=== PATIENT | female | born 1945 | race Caucasian/White ===

== ENCOUNTER 2019-07-13 09:03 | Inpatient (IN) | payer MEDICARE, OTHER ==
[2019-07-13] VITALS (12 sets, daily range): BP systolic 93–114; BP diastolic 33–76
[~2019-07-13] VITALS: Ht 152.4 cm; Wt 72.3 kg
[~2019-07-13 09:03] MED LIST: ALEN70TA3 PO; ASCO100T4 PO; CARV6.2511 PO; CHOL10002 PO; DIGO250T3 PO; DULO30CA2 PO; ESCITALOPRAM OX10 MG PO; FERR500P8 MC; GABA300C18 PO; GLIM2TAB7 PO; INSU100V31 SQ; INSU100V8 SQ; LEVO125T5 PO; LEVO500T59 PO; LISI-338 PO; QUET100T4 PO; SIMV20TA18 PO; TAPE75TA3 PO
[2019-07-13 10:00] LABS: CALCIUM 8.6 mg/dL (8.5-10.1); CREATININE 0.9 mg/dL (0.6-1.0); GFR 61.4; POTASSIUM 4.3 mmol/L (3.5-5.1)
[2019-07-13 10:06] LABS: ALBUMIN 2.6 g/dL (3.4-5.0); ALBUMIN/GLOBULIN RATIO 0.8 (1.0-1.7); PROTHROMBIN TIME PATIENT 14.7 SEC (11.7-14.0); TOTAL BILIRUBIN 0.6 mg/dL (0.2-1.0)
[2019-07-13 10:41] LABS: BASO # 0.3 x10^3/uL (0.0-0.2); BASO % 2 % (0-3); EOS # 0.9 x10^3/uL (0.0-0.7); EOS % 7 % (0-3); HEMATOCRIT 21.5 % (36.0-47.0); LYMPH # 1.9 x10^3/uL (1.0-4.8); LYMPH % 15 % (24-48); MEAN CORPUSCULAR HEMOGLOBIN 15 pg (25-35); MEAN CORPUSCULAR HGB CONC 27 g/dL (31-37); MEAN CORPUSCULAR VOLUME 56 fL (79-100); MONO # 1.3 x10^3/uL (0.0-1.1); MONO % 10 % (0-9); NEUT # 8.8 x10^3/uL (1.8-7.7); NEUT % 67 % (31-73); PLATELET COUNT 341 x10^3/uL (140-400); RED BLOOD COUNT 3.87 x10^6/uL (3.50-5.40); WHITE BLOOD COUNT 13.3 x10^3/uL (4.0-11.0)
[2019-07-13 10:52] LABS: HEMOGLOBIN 5.9 g/dL (12.0-15.5)
--- NOTE | 2019-07-13 10:55 | PHYS DOC ---
Past Medical History Past Medical History: Anemia, Arthritis, Diabetes-Type II, Fibromyalgia Additional Past Medical Histor: abd hernia's, chrons Past Surgical History: Appendectomy, Hysterectomy, Other Additional Past Surgical Histo: mult colon sx's, lumbar disc sx, Smoking Status: Current Every Day Smoker Alcohol Use: None General Adult EDM: Chief Complaint: ABNORMAL LABS HPI: HPI: Patient is a 74 year old female presenting to the ED with a chief complaint of abnormal lab. Patient states that her physician called her this morning and asked her to come to the ER. Patient states that she had blood work done yesterday. Patient states that she was told that her hemoglobin value was not correct. Patient states that she has been feeling weak for the last few days. Patient denies blood in her stool or urine or cough. Patient does admit to being an active smoker. Patient denies taking blood thinners but does take a baby aspirin each morning. Patient did say that she had a blood transfusion 6 months ago. Patient states that she uses oxygen at night at 3 L nasal cannula. Review of Systems: Review of Systems: Constitutional: Denies fever or chills. [] Eyes: Denies change in visual acuity. [] HENT: Denies nasal congestion or sore throat. [] Respiratory: Denies cough or shortness of breath. [] Cardiovascular: Denies chest pain or edema. [] GI: Denies abdominal pain, nausea, vomiting, bloody stools or diarrhea. [] : Denies hematuria. [] Neurologic: Patient complains of generalized weakness Endocrine: Denies polyuria or polydipsia. [] Psychiatric: Denies depression or anxiety. [] Heart Score: Risk Factors: Risk Factors: DM, Current or recent (<one month) smoker, HTN, HLP, family history of CAD, obesity. Risk Scores: Score 0 - 3: 2.5% MACE over next 6 weeks - Discharge Home Score 4 - 6: 20.3% MACE over next 6 weeks - Admit for Clinical Observation Score 7 - 10: 72.7% MACE over next 6 weeks - Early Invasive Strategies Allergies: Allergies: Allergies Coded Allergies Type Severity Reaction Last Updated Verified No Known Drug Allergies 07/11/13 No Physical Exam: PE: Constitutional: Well developed, well nourished, no acute distress, pale HENT: Normocephalic, atraumatic Eyes: PERRLA, EOMI, conjunctiva normal, no discharge. [] Neck: Normal range of motion, no tenderness, supple Cardiovascular:Heart rate regular rhythm, no murmur [] Lungs & Thorax: Bilateral ronchi Abdomen: Bowel sounds normal, soft, no tenderness Back: No tenderness, no CVA tenderness. [] Extremities: No tenderness, no cyanosis, no clubbing, ROM intact, no edema. [] Neurologic: Alert and oriented X 3 Psychologic: Affect normal, judgement normal, mood normal. [] Current Patient Data: Labs: Laboratory Tests Test 07/13/19 09:44 Sodium Level 140 mmol/L (136-145) Potassium Level 4.3 mmol/L (3.5-5.1) Chloride Level 104 mmol/L (98-107) Carbon Dioxide Level 26 mmol/L (21-32) Anion Gap 10 (6-14) Blood Urea Nitrogen 11 mg/dL (7-20) Creatinine 0.9 mg/dL (0.6-1.0) Estimated GFR (Cockcroft-Gault) 61.4 BUN/Creatinine Ratio 12 (6-20) Glucose Level 169 mg/dL (70-99) H Calcium Level 8.6 mg/dL (8.5-10.1) Total Bilirubin 0.6 mg/dL (0.2-1.0) Aspartate Amino Transferase (AST) 20 U/L (15-37) Alanine Aminotransferase (ALT) 11 U/L (14-59) L Alkaline Phosphatase 95 U/L (46-116) Total Protein 6.0 g/dL (6.4-8.2) L Albumin 2.6 g/dL (3.4-5.0) L Albumin/Globulin Ratio 0.8 (1.0-1.7) L Laboratory Tests 07/13/19 09:44 Vital Signs: Vital Signs Date Time Temp Pulse Resp B/P (MAP) Pulse Ox O2 Delivery O2 Flow Rate FiO2 07/13/19 10:40 90 20 103/49 (67) 94 Nasal Cannula 3.0 07/13/19 09:22 97.9 97.9 EKG: EKG: [] Radiology/Procedures: Radiology/Procedures: [] Course & Med Decision Making: Course & Med Decision Making Pertinent Imaging studies reviewed. (See chart for details) Ordered labs, IV, UA. Patient's hemoglobin is 5.9. Order type and screen. Ordered blood transfusion for the patient to the ER. Patient is also on 3 L nasal cannula currently in the ER. Hemoccult stool sent to lab. Hemoccult is positive for blood. Patient will be admitted for further evaluation and treatment. Discussed results and plan of care with patient. Discussed case with hospitalist service who accept admission. Dragon Disclaimer: Dragon Disclaimer: This electronic medical record was generated, in whole or in part, using a voice recognition dictation system. Departure Departure Impression: Primary Impression: Symptomatic anemia Additional Impression: GI bleed Disposition: ADMITTED INPATIENT Condition: CRITICAL Referrals: MAO HANDLEY (PCP) LILLIE FERNANDEZ DO July 13, 2019 10:55
[2019-07-13 10:59] LABS: BILIRUBIN,URINE NEGATIVE (NEG); CLARITY,URINE CLEAR; COLOR,URINE YELLOW; NITRITE,URINE NEGATIVE (NEG); PH,URINE 6.5 (<5.0-8.0); PROTEIN,URINE NEGATIVE (NEG-TRACE)
[2019-07-13 11:07] LABS: SQUAMOUS EPITHELIAL CELL,UR MOD /LPF
[2019-07-13 11:08] LABS: BACTERIA,URINE FEW /HPF (0-FEW); RBC,URINE 0 /HPF (0-2); WBC,URINE OCC /HPF (0-4)
[2019-07-13 11:14] LABS: FECAL OB PT POSITIVE (NEG)
[2019-07-13 11:22] LABS: ANISOCYTOSIS MOD; PLT ESTIMATE ADEQUATE (ADEQUATE); POLYCHROMASIA SLIGHT
--- NOTE | 2019-07-13 11:35 | PDOC1 ---
History and Physical Date of Admission Date of Admission DATE: 07/13/19 TIME: 11:35 Identification/Chief Complaint Chief Complaint Low hemoglobin Source Source: Patient History of Present Illness History of Present Illness Ms Little is a 74yo F w/ PMHx COPD on 3L NCO2, smoker, osteoporosis, OA, fibromyalgia, DM, GERD, and crohns with 1 month of chronic abdominal pain saw her PCP 07/12/2019, and was told to go to ED for blood transfusion. Hb 5.9 and fecal occult positive. BUN 11. She denies obvious bleeding including hematemesis, hematochezia, but does endorse melena for the past month. She is eating Jell-O, and is asking me for a ham sandwich. Crohn's apparently diagnosed on colonoscopy performed for abdominal pain and diarrhea, and she has previously been on Humira and oral DMARDS, but does not remember the name of any stone splitter, and tells me that she does not have a stone splitter, says "some old angela saw me and said he'd give me a prescription". BP 105/38. HR 110bpm, admitted to [facility] for further care Past Medical History Cardiovascular: No pertinent hx GI: GERD, Inflam bowel disease (Crohns) Heme/Onc: No pertinent hx Hepatobiliary: No pertinent hx Psych: Depression Rheumatologic: Fibromyalgia Infectious disease: No pertinent hx ENT: No pertinent hx Renal/: No pertinent hx Endocrine: Diabetes Dermatology: No pertinent hx Past Surgical History Past Surgical History tonsillectomy, umbilical hernia repair w/ SBR, hysterectomy w/ complications re quiring mesh placement/removal and wound vac, appendectomy Family History Family History: Diabetes, Hypertension Social History Smoke: 1 pack per day ALCOHOL: none Drugs: None Current Problem List Problem List Problems Medical Problems: (1) GI bleed Status: Acute (2) Symptomatic anemia Status: Acute Current Medications Current Medications Active Scripts Active Reported Digoxin 250 Mcg Tablet 250 Mcg PO Nucynta (Tapentadol Hcl) 75 Mg Tablet 75 Mg PO Levaquin (Levofloxacin) 500 Mg Tablet 500 Mg PO Carvedilol 6.25 Mg Tablet 6.25 Mg PO Lantus (Insulin Glargine,Hum.rec.anlog) 100 Unit/1 Ml Vial 100 Unit SQ Novolog (Insulin Aspart) 100 Unit/1 Ml Vial 100 Unit SQ Levothyroxine Sodium 125 Mcg Tablet 125 Mcg PO DAILYAC Ferrous Sulfate (Ferrous Sulfate, Dried) 500 Gm Powder 500 Gm MC Glimepiride 2 Mg Tablet 2 Mg PO Lisinopril 5 Mg Tablet 5 Mg PO DAILY Gabapentin 300 Mg Capsule 300 Mg PO Escitalopram Oxalate 10 Mg Tablet 10 Mg PO DAILY Vitamin C (Ascorbic Acid) 100 Mg Tablet 100 Mg PO Vitamin D (Cholecalciferol (Vitamin D3)) 1,000 Unit Tablet 1,000 Unit PO Fosamax (Alendronate Sodium) 70 Mg Tablet 70 Mg PO Seroquel (Quetiapine Fumarate) 100 Mg Tablet 100 Mg PO Simvastatin 20 Mg Tablet 20 Mg PO DAILY Cymbalta (Duloxetine Hcl) 30 Mg Capsule.dr 30 Mg PO Allergies Allergies: Coded Allergies: No Known Drug Allergies (Unverified , 07/11/13) Physical Exam General: Alert, Oriented X3, Cooperative, mild distress HEENT: Atraumatic, PERRLA, EOMI, Mucous membr. moist/pink Lungs: Other (Scattered wheezes) Heart: S1S2, RRR, no thrills, no rubs, no gallops, no murmurs Abdomen: Normal bowel sounds, Soft, No hepatosplenomegaly, No masses, Other (mild tenderness, multiple reducible abdominal wall hernias) Rectal Exam: not examined Extremities: No clubbing, No cyanosis, No edema, Normal pulses, No tenderness/swelling Skin: No rashes, No breakdown, No significant lesion Neuro: Normal gait, Normal speech, Strength at 5/5 X4 ext, Normal tone, Sensation intact, Cranial nerves 3-12 NL, Reflexes 2+ Psych/Mental Status: Mental status NL, Mood NL Vitals Vitals Vital Signs Date Time Temp Pulse Resp B/P (MAP) Pulse Ox O2 Delivery O2 Flow Rate FiO2 07/13/19 11:10 90 18 104/47 (66) 90 Nasal Cannula 2.0 07/13/19 09:22 97.9 97.9 Labs Labs Laboratory Tests Test 07/13/19 09:44 07/13/19 10:25 07/13/19 11:02 White Blood Count 13.3 x10^3/uL (4.0-11.0) Red Blood Count 3.87 x10^6/uL (3.50-5.40) Hemoglobin 5.9 g/dL (12.0-15.5) Hematocrit 21.5 % (36.0-47.0) Mean Corpuscular Volume 56 fL (79-100) Mean Corpuscular Hemoglobin 15 pg (25-35) Mean Corpuscular Hemoglobin Concent 27 g/dL (31-37) Red Cell Distribution Width 21.0 % (11.5-14.5) Platelet Count 341 x10^3/uL (140-400) Neutrophils (%) (Auto) 67 % (31-73) Lymphocytes (%) (Auto) 15 % (24-48) Monocytes (%) (Auto) 10 % (0-9) Eosinophils (%) (Auto) 7 % (0-3) Basophils (%) (Auto) 2 % (0-3) Neutrophils # (Auto) 8.8 x10^3/uL (1.8-7.7) Lymphocytes # (Auto) 1.9 x10^3/uL (1.0-4.8) Monocytes # (Auto) 1.3 x10^3/uL (0.0-1.1) Eosinophils # (Auto) 0.9 x10^3/uL (0.0-0.7) Basophils # (Auto) 0.3 x10^3/uL (0.0-0.2) Platelet Estimate Adequate (ADEQUATE) Polychromasia Slight Basophilic Stippling Present Anisocytosis Mod Prothrombin Time 14.7 SEC (11.7-14.0) Prothromb Time International Ratio 1.2 (0.8-1.1) Sodium Level 140 mmol/L (136-145) Potassium Level 4.3 mmol/L (3.5-5.1) Chloride Level 104 mmol/L (98-107) Carbon Dioxide Level 26 mmol/L (21-32) Anion Gap 10 (6-14) Blood Urea Nitrogen 11 mg/dL (7-20) Creatinine 0.9 mg/dL (0.6-1.0) Estimated GFR (Cockcroft-Gault) 61.4 BUN/Creatinine Ratio 12 (6-20) Glucose Level 169 mg/dL (70-99) Calcium Level 8.6 mg/dL (8.5-10.1) Total Bilirubin 0.6 mg/dL (0.2-1.0) Aspartate Amino Transf (AST/SGOT) 20 U/L (15-37) Alanine Aminotransferase (ALT/SGPT) 11 U/L (14-59) Alkaline Phosphatase 95 U/L (46-116) Total Protein 6.0 g/dL (6.4-8.2) Albumin 2.6 g/dL (3.4-5.0) Albumin/Globulin Ratio 0.8 (1.0-1.7) Urine Collection Type Unknown Urine Color Yellow Urine Clarity Clear Urine pH 6.5 (<5.0-8.0) Urine Specific [place] 1.020 (1.000-1.030) Urine Protein Negative mg/dL (NEG-TRACE) Urine Glucose (UA) Negative mg/dL (NEG) Urine Ketones (Stick) Trace mg/dL (NEG) Urine Blood Negative (NEG) Urine Nitrite Negative (NEG) Urine Bilirubin Negative (NEG) Urine Urobilinogen Dipstick 1.0 mg/dL (0.2 mg/dL) Urine Leukocyte Esterase Negative (NEG) Urine RBC 0 /HPF (0-2) Urine WBC Occ /HPF (0-4) Urine Squamous Epithelial Cells Mod /LPF Urine Bacteria Few /HPF (0-FEW) Urine Mucus Slight /LPF Stool Occult Blood Positive (NEG) Laboratory Tests Test 07/13/19 09:44 07/13/19 10:25 07/13/19 11:02 White Blood Count 13.3 x10^3/uL (4.0-11.0) Red Blood Count 3.87 x10^6/uL (3.50-5.40) Hemoglobin 5.9 g/dL (12.0-15.5) Hematocrit 21.5 % (36.0-47.0) Mean Corpuscular Volume 56 fL (79-100) Mean Corpuscular Hemoglobin 15 pg (25-35) Mean Corpuscular Hemoglobin Concent 27 g/dL (31-37) Red Cell Distribution Width 21.0 % (11.5-14.5) Platelet Count 341 x10^3/uL (140-400) Neutrophils (%) (Auto) 67 % (31-73) Lymphocytes (%) (Auto) 15 % (24-48) Monocytes (%) (Auto) 10 % (0-9) Eosinophils (%) (Auto) 7 % (0-3) Basophils (%) (Auto) 2 % (0-3) Neutrophils # (Auto) 8.8 x10^3/uL (1.8-7.7) Lymphocytes # (Auto) 1.9 x10^3/uL (1.0-4.8) Monocytes # (Auto) 1.3 x10^3/uL (0.0-1.1) Eosinophils # (Auto) 0.9 x10^3/uL (0.0-0.7) Basophils # (Auto) 0.3 x10^3/uL (0.0-0.2) Platelet Estimate Adequate (ADEQUATE) Polychromasia Slight Basophilic Stippling Present Anisocytosis Mod Prothrombin Time 14.7 SEC (11.7-14.0) Prothromb Time International Ratio 1.2 (0.8-1.1) Sodium Level 140 mmol/L (136-145) Potassium Level 4.3 mmol/L (3.5-5.1) Chloride Level 104 mmol/L (98-107) Carbon Dioxide Level 26 mmol/L (21-32) Anion Gap 10 (6-14) Blood Urea Nitrogen 11 mg/dL (7-20) Creatinine 0.9 mg/dL (0.6-1.0) Estimated GFR (Cockcroft-Gault) 61.4 BUN/Creatinine Ratio 12 (6-20) Glucose Level 169 mg/dL (70-99) Calcium Level 8.6 mg/dL (8.5-10.1) Total Bilirubin 0.6 mg/dL (0.2-1.0) Aspartate Amino Transf (AST/SGOT) 20 U/L (15-37) Alanine Aminotransferase (ALT/SGPT) 11 U/L (14-59) Alkaline Phosphatase 95 U/L (46-116) Total Protein 6.0 g/dL (6.4-8.2) Albumin 2.6 g/dL (3.4-5.0) Albumin/Globulin Ratio 0.8 (1.0-1.7) Urine Collection Type Unknown Urine Color Yellow Urine Clarity Clear Urine pH 6.5 (<5.0-8.0) Urine Specific [place] 1.020 (1.000-1.030) Urine Protein Negative mg/dL (NEG-TRACE) Urine Glucose (UA) Negative mg/dL (NEG) Urine Ketones (Stick) Trace mg/dL (NEG) Urine Blood Negative (NEG) Urine Nitrite Negative (NEG) Urine Bilirubin Negative (NEG) Urine Urobilinogen Dipstick 1.0 mg/dL (0.2 mg/dL) Urine Leukocyte Esterase Negative (NEG) Urine RBC 0 /HPF (0-2) Urine WBC Occ /HPF (0-4) Urine Squamous Epithelial Cells Mod /LPF Urine Bacteria Few /HPF (0-FEW) Urine Mucus Slight /LPF Stool Occult Blood Positive (NEG) VTE Prophylaxis Ordered VTE Prophylaxis Devices: Yes VTE Pharmacological Prophylaxi: No Assessment/Plan Assessment/Plan A/P: Acute anemia - occult positive, on chronic B12 therapy and has received iron in the past. H/o Crohn's disease w/ chronic diarrhea and abdominal pain - not on oral meds, she does not wish for any enema therapy. DM2 - sliding scale inpatient COPD - on chronic 2L NCO2, nebs prn Smoker - counseled on nicotine cessation. She says she like it and will never quit. GERD - Cont PPI OA - with Chronic pain diagnosed with fibromyalgia, however is on opioids for treatment FEN - PPX - SCDs FULL CODE Dispo - Inpatient for 2 midnights LUZ FERRER MD July 13, 2019 11:35
[2019-07-13] MEDS: NICOTINE 21MG PATCH. TD SCH (14:20)
--- NOTE | 2019-07-13 16:50 | PDOC2 ---
RICH LUNA 07/13/19 1650: GI CONSULT Reason For Consult: Crohn's with flare and anemia HPI: HPI: 74 y/o female w/ chronic diffuse abdominal pain saw her PCP yesterday. Was called today w/ lab results and told to come to the hospital for blood transfusion. Hgb 5.9 w/ normal BUN. She denies obvious bleeding including hematemesis, hematochezia, and melena. She is currently eating a sandwich enthusiastically. H/o Crohn's diagnosed on colonoscopy performed for abdominal pain (similar to current pain but less severe) and diarrhea somewhere in the area. Says she tried 6 Humira shots but quit because it caused back pain. Has taken four orange pills a day since then and has had a couple more colonoscopies - last about three years ago, thinks all showed active Crohn's but is unsure extent of disease. Gives history of recent imaging showing hernias and was apparently looking to follow-up w/ a surgeon but was unable to schedule an appointment do to the [facility]. H/o anemia - saw a "blood doctor" 6 months ago in [place] who told her "never ever to take an iron pill" but gave her some iron in an IV. Takes B12 daily. H/o GERD controlled w/ Prilosec QD. Chronic intermittent dysphagia w/ solids and pills. Sometimes has to cough food up. Thinks Dr. Wright did an EGD years ago that showed lots of ulcers. No n/v or weight loss. Diarrhea is stable/unchanged - typically has 2-5 stools daily. No GB, liver, or pancreas history. Daily ASA and morphine for severe fibromyalgia. Smokes. PMH: PMH: COPD, osteoporosis, OA, fibromyalgia, DM tonsillectomy, umbilical hernia repair w/ SBR, hysterectomy w/ complications requiring mesh placement/removal and wound vac, appendectomy FH: Family History: No pertinent hx Social History: Smoke: 1 pack per day ALCOHOL: none Drugs: None ROS: GEN: Denies fevers, chills, sweats HEENT: Denies blurred vision, sore throat CV: Denies chest pain RESP: +SOA GI: Per HPI : Denies hematuria, dysuria ENDO: Denies weight changes NEURO: Denies confusion, dizziness MSK: +chronic pain SKIN: Denies jaundice, pruritus Vitals: Vitals: Vital Signs Date Time Temp Pulse Resp B/P (MAP) Pulse Ox O2 Delivery O2 Flow Rate FiO2 07/13/19 15:34 98.1 82 18 110/52 (71) 98 Nasal Cannula 3.0 98.1 Labs: Labs: Laboratory Tests Test 07/13/19 09:44 07/13/19 10:25 07/13/19 11:02 07/13/19 12:31 White Blood Count 13.3 x10^3/uL (4.0-11.0) Red Blood Count 3.87 x10^6/uL (3.50-5.40) Hemoglobin 5.9 g/dL (12.0-15.5) Hematocrit 21.5 % (36.0-47.0) Mean Corpuscular Volume 56 fL (79-100) Mean Corpuscular Hemoglobin 15 pg (25-35) Mean Corpuscular Hemoglobin Concent 27 g/dL (31-37) Red Cell Distribution Width 21.0 % (11.5-14.5) Platelet Count 341 x10^3/uL (140-400) Neutrophils (%) (Auto) 67 % (31-73) Lymphocytes (%) (Auto) 15 % (24-48) Monocytes (%) (Auto) 10 % (0-9) Eosinophils (%) (Auto) 7 % (0-3) Basophils (%) (Auto) 2 % (0-3) Neutrophils # (Auto) 8.8 x10^3/uL (1.8-7.7) Lymphocytes # (Auto) 1.9 x10^3/uL (1.0-4.8) Monocytes # (Auto) 1.3 x10^3/uL (0.0-1.1) Eosinophils # (Auto) 0.9 x10^3/uL (0.0-0.7) Basophils # (Auto) 0.3 x10^3/uL (0.0-0.2) Platelet Estimate Adequate (ADEQUATE) Polychromasia Slight Basophilic Stippling Present Anisocytosis Mod Prothrombin Time 14.7 SEC (11.7-14.0) Prothromb Time International Ratio 1.2 (0.8-1.1) Sodium Level 140 mmol/L (136-145) Potassium Level 4.3 mmol/L (3.5-5.1) Chloride Level 104 mmol/L (98-107) Carbon Dioxide Level 26 mmol/L (21-32) Anion Gap 10 (6-14) Blood Urea Nitrogen 11 mg/dL (7-20) Creatinine 0.9 mg/dL (0.6-1.0) Estimated GFR (Cockcroft-Gault) 61.4 BUN/Creatinine Ratio 12 (6-20) Glucose Level 169 mg/dL (70-99) Calcium Level 8.6 mg/dL (8.5-10.1) Total Bilirubin 0.6 mg/dL (0.2-1.0) Aspartate Amino Transf (AST/SGOT) 20 U/L (15-37) Alanine Aminotransferase (ALT/SGPT) 11 U/L (14-59) Alkaline Phosphatase 95 U/L (46-116) Total Protein 6.0 g/dL (6.4-8.2) Albumin 2.6 g/dL (3.4-5.0) Albumin/Globulin Ratio 0.8 (1.0-1.7) Urine Collection Type Unknown Urine Color Yellow Urine Clarity Clear Urine pH 6.5 (<5.0-8.0) Urine Specific [place] 1.020 (1.000-1.030) Urine Protein Negative mg/dL (NEG-TRACE) Urine Glucose (UA) Negative mg/dL (NEG) Urine Ketones (Stick) Trace mg/dL (NEG) Urine Blood Negative (NEG) Urine Nitrite Negative (NEG) Urine Bilirubin Negative (NEG) Urine Urobilinogen Dipstick 1.0 mg/dL (0.2 mg/dL) Urine Leukocyte Esterase Negative (NEG) Urine RBC 0 /HPF (0-2) Urine WBC Occ /HPF (0-4) Urine Squamous Epithelial Cells Mod /LPF Urine Bacteria Few /HPF (0-FEW) Urine Mucus Slight /LPF Stool Occult Blood Positive (NEG) Glucose (Fingerstick) 141 mg/dL (70-99) Allergies: Coded Allergies: No Known Drug Allergies (Unverified , 07/11/13) Medications: Current Medications Medications (Trade) Dose Ordered Sig/Nicolle Route PRN Reason Start Time Stop Time Status Last Admin Dose Admin Nicotine (Nicoderm Cq 21mg) 1 patch DAILY TD 07/13/19 12:30 07/13/19 14:20 Imaging: Imaging: none PE: GEN: NAD HEENT: Atraumatic, PERRL LUNGS: diminished HEART: RRR ABD: surgical scars, periumbilical tenderness, BS more active to right EXTREMITY: No edema SKIN: No rashes, no jaundice NEURO/PSYCH: A & O 3 A/P: A/P: Microcytic anemia, +Hemoccult - denies obvious bleeding, h/o anemia and what seems like previous hematology eval - on B12 at home, has received iron infusio ns in the past H/o Crohn's disease w/ chronic diarrhea and abdominal pain GERD, chronic dysphagia, ?h/o PUD - on PPI QD CRC screen - last ~3 years ago Chronic pain on morphine +tobacco -- Chronic GI issues. Agree w/ transfusion. Check CT re: Crohn's and hernias. She's eating well it seems - add PO PPI. Consider iron infusion. CHASITY PATTERSON MD 07/13/19 1651: RICH LUNA July 13, 2019 16:50 CHASITY PATTERSON MD July 13, 2019 16:51
[2019-07-13 21:14] LABS: HEMATOCRIT 24.9 % (36.0-47.0); HEMOGLOBIN 7.3 g/dL (12.0-15.5)
[2019-07-13] MEDS ORDERED: INSULIN GLARGINE SYRINGE. SQ SCH (22:00)
[2019-07-13] MEDS ORDERED: ACETAMINOPHEN 325 MG TABLET. PO PRN (22:00)
[2019-07-13] MEDS ORDERED: DEXTROSE 50% 25 GM / 50ML DISP.SYRIN. IV PRN (22:00)
[2019-07-13] MEDS ORDERED: ONDANSETRON PF 4 MG/2 ML VIAL. IV PRN (22:00)
[2019-07-13] MEDS: IPRATRPIUM/ALBUTEROL 0.5/2.5MG 3 ML NEBU. NEB SCH (22:30)
[2019-07-14] VITALS (12 sets, daily range): BP systolic 93–124; BP diastolic 28–53
[2019-07-14 04:57] LABS: HEMATOCRIT 22.9 % (36.0-47.0)
[2019-07-14 05:28] LABS: HEMOGLOBIN 6.7 g/dL (12.0-15.5)
[2019-07-14] MEDS ORDERED: PANTOPRAZOLE 40 MG TABLET.DR. PO SCH (07:30)
[2019-07-14] MEDS: INSULIN LISPRO 300 UNITS/3 ML VIAL. SQ SCH ×4 (07:30→12:40)
--- NOTE | 2019-07-14 07:39 | PDOC ---
PROGRESS NOTES Chief Complaint Chief Complaint A/P: Acute anemia - occult positive, on chronic B12 therapy and has received iron in the past. H/o Crohn's disease w/ chronic diarrhea and abdominal pain - not on oral meds, she does not wish for any enema therapy. DM2 - sliding scale inpatient COPD - on chronic 2L NCO2, nebs prn Smoker - counseled on nicotine cessation. She says she like it and will never quit. GERD - Cont PPI OA - with Chronic pain diagnosed with fibromyalgia, however is on opioids for treatment FEN - PPX - SCDs FULL CODE Dispo - Inpatient for 2 midnights History of Present Illness History of Present Illness Ms Little is a 74yo F w/ PMHx COPD on 3L NCO2, smoker, osteoporosis, OA, fibromyalgia, DM, GERD, and crohns with 1 month of chronic abdominal pain saw her PCP 07/12/2019, and was told to go to ED for blood transfusion. Hb 5.9 and fecal occult positive. BUN 11. She denies obvious bleeding including hematemesis, hematochezia, but does endorse melena for the past month. She is eating Jell-O, and is asking me for a ham sandwich. Crohn's apparently diagnosed on colonoscopy performed for abdominal pain and diarrhea, and she has previously been on Humira and oral DMARDS, but does not remember the name of any patient financial advocate, and tells me that she does not have a patient financial advocate, says "some old angela saw me and said he'd give me a prescription". BP 105/38. HR 110bpm, admitted to [facility] for further care Hb 6.7 after transfusion. Iron 8. Vital signs improved slightly. Afebrile. She has a voracious appetite. Abdominal pain significantly improved. She is completed a second transfusion and is receiving iron therapy right now is awaiting a CT scan. She complains of pruritus of the scalp and has requested that after her iron infusion and CT scan if she could be discharged home for outpatient follow-up with gastroenterology. Vitals Vitals Vital Signs Date Time Temp Pulse Resp B/P (MAP) Pulse Ox O2 Delivery O2 Flow Rate FiO2 07/14/19 03:00 98.6 92 18 99/44 (62) 96 98.6 07/13/19 20:00 Nasal Cannula 3.0 Physical Exam General: Alert, Oriented X3, Cooperative, mild distress Abdomen: Normal bowel sounds, Soft, No hepatosplenomegaly, No masses, Other (mild tenderness, multiple reducible abdominal wall hernias) Extremities: No clubbing, No cyanosis, No edema, Normal pulses, No tenderness/swelling Skin: No rashes, No breakdown, No significant lesion Labs LABS Laboratory Tests Test 07/13/19 09:44 07/13/19 10:25 07/13/19 11:02 07/13/19 12:31 White Blood Count 13.3 x10^3/uL (4.0-11.0) Red Blood Count 3.87 x10^6/uL (3.50-5.40) Hemoglobin 5.9 g/dL (12.0-15.5) Hematocrit 21.5 % (36.0-47.0) Mean Corpuscular Volume 56 fL (79-100) Mean Corpuscular Hemoglobin 15 pg (25-35) Mean Corpuscular Hemoglobin Concent 27 g/dL (31-37) Red Cell Distribution Width 21.0 % (11.5-14.5) Platelet Count 341 x10^3/uL (140-400) Neutrophils (%) (Auto) 67 % (31-73) Lymphocytes (%) (Auto) 15 % (24-48) Monocytes (%) (Auto) 10 % (0-9) Eosinophils (%) (Auto) 7 % (0-3) Basophils (%) (Auto) 2 % (0-3) Neutrophils # (Auto) 8.8 x10^3/uL (1.8-7.7) Lymphocytes # (Auto) 1.9 x10^3/uL (1.0-4.8) Monocytes # (Auto) 1.3 x10^3/uL (0.0-1.1) Eosinophils # (Auto) 0.9 x10^3/uL (0.0-0.7) Basophils # (Auto) 0.3 x10^3/uL (0.0-0.2) Platelet Estimate Adequate (ADEQUATE) Polychromasia Slight Basophilic Stippling Present Anisocytosis Mod Prothrombin Time 14.7 SEC (11.7-14.0) Prothromb Time International Ratio 1.2 (0.8-1.1) Sodium Level 140 mmol/L (136-145) Potassium Level 4.3 mmol/L (3.5-5.1) Chloride Level 104 mmol/L (98-107) Carbon Dioxide Level 26 mmol/L (21-32) Anion Gap 10 (6-14) Blood Urea Nitrogen 11 mg/dL (7-20) Creatinine 0.9 mg/dL (0.6-1.0) Estimated GFR (Cockcroft-Gault) 61.4 BUN/Creatinine Ratio 12 (6-20) Glucose Level 169 mg/dL (70-99) Calcium Level 8.6 mg/dL (8.5-10.1) Iron Level 8 ug/dL (50-170) Total Iron Binding Capacity 258 ug/dL (250-450) Iron Saturation 3 % (15-34) Total Bilirubin 0.6 mg/dL (0.2-1.0) Aspartate Amino Transf (AST/SGOT) 20 U/L (15-37) Alanine Aminotransferase (ALT/SGPT) 11 U/L (14-59) Alkaline Phosphatase 95 U/L (46-116) Total Protein 6.0 g/dL (6.4-8.2) Albumin 2.6 g/dL (3.4-5.0) Albumin/Globulin Ratio 0.8 (1.0-1.7) Vitamin B12 Level 604 pg/mL (247-911) Urine Collection Type Unknown Urine Color Yellow Urine Clarity Clear Urine pH 6.5 (<5.0-8.0) Urine Specific [place] 1.020 (1.000-1.030) Urine Protein Negative mg/dL (NEG-TRACE) Urine Glucose (UA) Negative mg/dL (NEG) Urine Ketones (Stick) Trace mg/dL (NEG) Urine Blood Negative (NEG) Urine Nitrite Negative (NEG) Urine Bilirubin Negative (NEG) Urine Urobilinogen Dipstick 1.0 mg/dL (0.2 mg/dL) Urine Leukocyte Esterase Negative (NEG) Urine RBC 0 /HPF (0-2) Urine WBC Occ /HPF (0-4) Urine Squamous Epithelial Cells Mod /LPF Urine Bacteria Few /HPF (0-FEW) Urine Mucus Slight /LPF Stool Occult Blood Positive (NEG) Glucose (Fingerstick) 141 mg/dL (70-99) Test 07/13/19 16:50 07/13/19 20:55 07/13/19 21:42 07/14/19 04:25 Glucose (Fingerstick) 154 mg/dL (70-99) 298 mg/dL (70-99) Hemoglobin 7.3 g/dL (12.0-15.5) 6.7 g/dL (12.0-15.5) Hematocrit 24.9 % (36.0-47.0) 22.9 % (36.0-47.0) Mean Corpuscular Hemoglobin Concent 29 g/dL (31-37) 29 g/dL (31-37) Test 07/14/19 07:04 Glucose (Fingerstick) 194 mg/dL (70-99) Assessment and Plan Assessmemt and Plan Problems Medical Problems: (1) GI bleed Status: Acute (2) Symptomatic anemia Status: Acute Comment Review of Relevant I have reviewed the following items lorie (where applicable) has been applied. Labs Laboratory Tests Test 07/13/19 09:44 07/13/19 10:25 07/13/19 11:02 07/13/19 12:31 White Blood Count 13.3 x10^3/uL (4.0-11.0) Red Blood Count 3.87 x10^6/uL (3.50-5.40) Hemoglobin 5.9 g/dL (12.0-15.5) Hematocrit 21.5 % (36.0-47.0) Mean Corpuscular Volume 56 fL (79-100) Mean Corpuscular Hemoglobin 15 pg (25-35) Mean Corpuscular Hemoglobin Concent 27 g/dL (31-37) Red Cell Distribution Width 21.0 % (11.5-14.5) Platelet Count 341 x10^3/uL (140-400) Neutrophils (%) (Auto) 67 % (31-73) Lymphocytes (%) (Auto) 15 % (24-48) Monocytes (%) (Auto) 10 % (0-9) Eosinophils (%) (Auto) 7 % (0-3) Basophils (%) (Auto) 2 % (0-3) Neutrophils # (Auto) 8.8 x10^3/uL (1.8-7.7) Lymphocytes # (Auto) 1.9 x10^3/uL (1.0-4.8) Monocytes # (Auto) 1.3 x10^3/uL (0.0-1.1) Eosinophils # (Auto) 0.9 x10^3/uL (0.0-0.7) Basophils # (Auto) 0.3 x10^3/uL (0.0-0.2) Platelet Estimate Adequate (ADEQUATE) Polychromasia Slight Basophilic Stippling Present Anisocytosis Mod Prothrombin Time 14.7 SEC (11.7-14.0) Prothromb Time International Ratio 1.2 (0.8-1.1) Sodium Level 140 mmol/L (136-145) Potassium Level 4.3 mmol/L (3.5-5.1) Chloride Level 104 mmol/L (98-107) Carbon Dioxide Level 26 mmol/L (21-32) Anion Gap 10 (6-14) Blood Urea Nitrogen 11 mg/dL (7-20) Creatinine 0.9 mg/dL (0.6-1.0) Estimated GFR (Cockcroft-Gault) 61.4 BUN/Creatinine Ratio 12 (6-20) Glucose Level 169 mg/dL (70-99) Calcium Level 8.6 mg/dL (8.5-10.1) Iron Level 8 ug/dL (50-170) Total Iron Binding Capacity 258 ug/dL (250-450) Iron Saturation 3 % (15-34) Total Bilirubin 0.6 mg/dL (0.2-1.0) Aspartate Amino Transf (AST/SGOT) 20 U/L (15-37) Alanine Aminotransferase (ALT/SGPT) 11 U/L (14-59) Alkaline Phosphatase 95 U/L (46-116) Total Protein 6.0 g/dL (6.4-8.2) Albumin 2.6 g/dL (3.4-5.0) Albumin/Globulin Ratio 0.8 (1.0-1.7) Vitamin B12 Level 604 pg/mL (247-911) Urine Collection Type Unknown Urine Color Yellow Urine Clarity Clear Urine pH 6.5 (<5.0-8.0) Urine Specific [place] 1.020 (1.000-1.030) Urine Protein Negative mg/dL (NEG-TRACE) Urine Glucose (UA) Negative mg/dL (NEG) Urine Ketones (Stick) Trace mg/dL (NEG) Urine Blood Negative (NEG) Urine Nitrite Negative (NEG) Urine Bilirubin Negative (NEG) Urine Urobilinogen Dipstick 1.0 mg/dL (0.2 mg/dL) Urine Leukocyte Esterase Negative (NEG) Urine RBC 0 /HPF (0-2) Urine WBC Occ /HPF (0-4) Urine Squamous Epithelial Cells Mod /LPF Urine Bacteria Few /HPF (0-FEW) Urine Mucus Slight /LPF Stool Occult Blood Positive (NEG) Glucose (Fingerstick) 141 mg/dL (70-99) Test 07/13/19 16:50 07/13/19 20:55 07/13/19 21:42 07/14/19 04:25 Glucose (Fingerstick) 154 mg/dL (70-99) 298 mg/dL (70-99) Hemoglobin 7.3 g/dL (12.0-15.5) 6.7 g/dL (12.0-15.5) Hematocrit 24.9 % (36.0-47.0) 22.9 % (36.0-47.0) Mean Corpuscular Hemoglobin Concent 29 g/dL (31-37) 29 g/dL (31-37) Test 07/14/19 07:04 Glucose (Fingerstick) 194 mg/dL (70-99) Laboratory Tests Test 07/13/19 09:44 07/13/19 10:25 07/13/19 11:02 07/13/19 12:31 White Blood Count 13.3 x10^3/uL (4.0-11.0) Red Blood Count 3.87 x10^6/uL (3.50-5.40) Hemoglobin 5.9 g/dL (12.0-15.5) Hematocrit 21.5 % (36.0-47.0) Mean Corpuscular Volume 56 fL (79-100) Mean Corpuscular Hemoglobin 15 pg (25-35) Mean Corpuscular Hemoglobin Concent 27 g/dL (31-37) Red Cell Distribution Width 21.0 % (11.5-14.5) Platelet Count 341 x10^3/uL (140-400) Neutrophils (%) (Auto) 67 % (31-73) Lymphocytes (%) (Auto) 15 % (24-48) Monocytes (%) (Auto) 10 % (0-9) Eosinophils (%) (Auto) 7 % (0-3) Basophils (%) (Auto) 2 % (0-3) Neutrophils # (Auto) 8.8 x10^3/uL (1.8-7.7) Lymphocytes # (Auto) 1.9 x10^3/uL (1.0-4.8) Monocytes # (Auto) 1.3 x10^3/uL (0.0-1.1) Eosinophils # (Auto) 0.9 x10^3/uL (0.0-0.7) Basophils # (Auto) 0.3 x10^3/uL (0.0-0.2) Platelet Estimate Adequate (ADEQUATE) Polychromasia Slight Basophilic Stippling Present Anisocytosis Mod Prothrombin Time 14.7 SEC (11.7-14.0) Prothromb Time International Ratio 1.2 (0.8-1.1) Sodium Level 140 mmol/L (136-145) Potassium Level 4.3 mmol/L (3.5-5.1) Chloride Level 104 mmol/L (98-107) Carbon Dioxide Level 26 mmol/L (21-32) Anion Gap 10 (6-14) Blood Urea Nitrogen 11 mg/dL (7-20) Creatinine 0.9 mg/dL (0.6-1.0) Estimated GFR (Cockcroft-Gault) 61.4 BUN/Creatinine Ratio 12 (6-20) Glucose Level 169 mg/dL (70-99) Calcium Level 8.6 mg/dL (8.5-10.1) Iron Level 8 ug/dL (50-170) Total Iron Binding Capacity 258 ug/dL (250-450) Iron Saturation 3 % (15-34) Total Bilirubin 0.6 mg/dL (0.2-1.0) Aspartate Amino Transf (AST/SGOT) 20 U/L (15-37) Alanine Aminotransferase (ALT/SGPT) 11 U/L (14-59) Alkaline Phosphatase 95 U/L (46-116) Total Protein 6.0 g/dL (6.4-8.2) Albumin 2.6 g/dL (3.4-5.0) Albumin/Globulin Ratio 0.8 (1.0-1.7) Vitamin B12 Level 604 pg/mL (247-911) Urine Collection Type Unknown Urine Color Yellow Urine Clarity Clear Urine pH 6.5 (<5.0-8.0) Urine Specific [place] 1.020 (1.000-1.030) Urine Protein Negative mg/dL (NEG-TRACE) Urine Glucose (UA) Negative mg/dL (NEG) Urine Ketones (Stick) Trace mg/dL (NEG) Urine Blood Negative (NEG) Urine Nitrite Negative (NEG) Urine Bilirubin Negative (NEG) Urine Urobilinogen Dipstick 1.0 mg/dL (0.2 mg/dL) Urine Leukocyte Esterase Negative (NEG) Urine RBC 0 /HPF (0-2) Urine WBC Occ /HPF (0-4) Urine Squamous Epithelial Cells Mod /LPF Urine Bacteria Few /HPF (0-FEW) Urine Mucus Slight /LPF Stool Occult Blood Positive (NEG) Glucose (Fingerstick) 141 mg/dL (70-99) Test 07/13/19 16:50 07/13/19 20:55 07/13/19 21:42 07/14/19 04:25 Glucose (Fingerstick) 154 mg/dL (70-99) 298 mg/dL (70-99) Hemoglobin 7.3 g/dL (12.0-15.5) 6.7 g/dL (12.0-15.5) Hematocrit 24.9 % (36.0-47.0) 22.9 % (36.0-47.0) Mean Corpuscular Hemoglobin Concent 29 g/dL (31-37) 29 g/dL (31-37) Test 07/14/19 07:04 Glucose (Fingerstick) 194 mg/dL (70-99) Medications Current Medications Nicotine (Nicoderm Cq 21mg) 1 patch DAILY TD Last administered on 07/13/19at 14:20; Start 07/13/19 at 12:30 Pantoprazole Sodium (Protonix) 40 mg DAILYAC PO ; Start 07/14/19 at 07:30 Insulin Glargine (Lantus Syringe) 65 unit HS SQ Last administered on 07/13/19at 22:27; Start 07/13/19 at 22:00 Insulin Human Lispro (HumaLOG) 25 units TIDWMEALS SQ ; Start 07/14/19 at 08:00 Insulin Human Lispro (HumaLOG) 0-9 UNITS TIDACHC SQ ; Start 07/14/19 at 07:30 Dextrose (Dextrose 50%-Water Syringe) 12.5 gm PRN Q15MIN PRN IV SEE COMMENTS; Start 07/13/19 at 22:00 Ondansetron HCl (Zofran) 4 mg PRN Q4HRS PRN IV NAUSEA/VOMITING; Start 07/13/19 at 22:00 Acetaminophen (Tylenol) 650 mg PRN Q4HRS PRN PO TEMP OVER 100.4F OR MILD PAIN; Start 07/13/19 at 22:00 Albuterol/ Ipratropium (Duoneb) 3 ml RTQID NEB ; Start 07/13/19 at 22:30 Active Scripts Active Reported Digoxin 250 Mcg Tablet 250 Mcg PO Nucynta (Tapentadol Hcl) 75 Mg Tablet 75 Mg PO Levaquin (Levofloxacin) 500 Mg Tablet 500 Mg PO Carvedilol (Carvedilol) 6.25 Mg Tablet 6.25 Mg PO Lantus (Insulin Glargine,Hum.rec.anlog) 100 Unit/1 Ml Vial 65 Unit SQ HS Novolog (Insulin Aspart) 100 Unit/1 Ml Vial 25 Unit SQ TIDWMEALS Levothyroxine Sodium 125 Mcg Tablet 125 Mcg PO DAILYAC Ferrous Sulfate (Ferrous Sulfate, Dried) 500 Gm Powder 500 Gm MC Glimepiride 2 Mg Tablet 2 Mg PO Lisinopril 5 Mg Tablet 5 Mg PO DAILY Gabapentin (Gabapentin) 300 Mg Capsule 300 Mg PO Escitalopram Oxalate 10 Mg Tablet 10 Mg PO DAILY Vitamin C (Ascorbic Acid) 100 Mg Tablet 100 Mg PO Vitamin D (Cholecalciferol (Vitamin D3)) 1,000 Unit Tablet 1,000 Unit PO Fosamax (Alendronate Sodium) 70 Mg Tablet 70 Mg PO Seroquel (Quetiapine Fumarate) 100 Mg Tablet 100 Mg PO Simvastatin 20 Mg Tablet 20 Mg PO DAILY Cymbalta (Duloxetine Hcl) 30 Mg Capsule.dr 30 Mg PO Vitals/I & O Vital Sign - Last 24 Hours 07/13/19 07/13/19 07/13/19 07/13/19 09:22 09:40 10:10 10:40 Temp 97.9 97.9 Pulse 98 94 90 90 Resp 18 20 18 20 B/P (MAP) 105/38 (60) 107/44 (65) 99/40 (59) 103/49 (67) Pulse Ox 88 96 95 94 O2 Delivery Room Air Nasal Cannula Nasal Cannula Nasal Cannula O2 Flow Rate 3.0 3.0 3.0 07/13/19 07/13/19 07/13/19 07/13/19 11:10 13:18 13:45 13:45 Temp 98.1 97.9 98.1 97.9 Pulse 90 87 88 Resp 18 18 B/P (MAP) 104/47 (66) 101/33 (55) 102/36 Pulse Ox 90 99 O2 Delivery Nasal Cannula Nasal Cannula Nasal Cannula O2 Flow Rate 2.0 3.0 3.0 07/13/19 07/13/19 07/13/19 07/13/19 13:49 14:00 15:00 15:34 Temp 98.3 98.3 98.0 98.1 98.3 98.3 98.0 98.1 Pulse 88 88 88 82 Resp 18 18 B/P (MAP) 109/33 93/39 110/42 110/52 (71) Pulse Ox 98 O2 Delivery Nasal Cannula O2 Flow Rate 3.0 07/13/19 07/13/19 07/13/19 07/13/19 16:00 17:00 17:30 18:30 Temp 98.1 97.9 98.3 98.1 98.1 97.9 98.3 98.1 Pulse 89 91 92 82 Resp 16 18 B/P (MAP) 111/43 101/45 112/40 114/76 07/13/19 07/13/19 07/13/19 07/14/19 19:00 20:00 23:00 03:00 Temp 98.8 97.9 98.6 98.8 97.9 98.6 Pulse 99 94 92 Resp 18 B/P (MAP) 112/41 (64) 96/39 (58) 99/44 (62) Pulse Ox 92 97 96 O2 Delivery Nasal Cannula O2 Flow Rate 3.0 Intake and Output 07/13/19 07/13/19 07/14/19 15:00 23:00 07:00 Intake Total 400 ml 1030 ml 600 ml Balance 400 ml 1030 ml 600 ml LUZ FERRER MD July 14, 2019 07:39
[2019-07-14] MEDS: IPRATRPIUM/ALBUTEROL 0.5/2.5MG 3 ML NEBU. NEB SCH ×3 (07:47→15:38)
[2019-07-14] MEDS ORDERED: GLIMEPIRIDE 2 MG TABLET. PO SCH (09:30)
[2019-07-14] MEDS ORDERED: LISINOPRIL 5 MG TABLET. PO SCH (10:00)
[2019-07-14] MEDS ORDERED: ASPIRIN ENTERIC COATED 81 MG TABLET.DR. PO SCH (10:00)
[2019-07-14] MEDS ORDERED: IRON SUCROSE COMPLEX 500 MG in IV NORMAL SALINE 250ML 250 ML IV ONE (10:00)
[2019-07-14] MEDS ORDERED: DULoxetine HCL 30 MG CAPSULE.DR PO SCH (10:00)
[2019-07-14] MEDS ORDERED: FERROUS SULFATE 325 MG TABLET. PO SCH (10:00)
[2019-07-14] MEDS ORDERED: MORPHINE ER 15 MG TABLET.ER PO SCH (10:00)
[2019-07-14] MEDS ORDERED: LEVOTHYROXINE 50 MCG TABLET PO SCH (10:00)
[2019-07-14] MEDS: PREGABALIN 75 MG CAPSULE PO SCH ×2 (10:22→15:07)
[2019-07-14] MEDS: BENZONATATE 100 MG CAPSULE. PO SCH ×2 (10:22→15:07)
[2019-07-14] MEDS: NICOTINE 21MG PATCH. TD SCH (10:24)
[2019-07-14] MEDS ORDERED: KETOCONAZOLE 2% SHAMPOO 120ML BOTTLE. TP PRN (10:45)
[2019-07-14] MEDS ORDERED: diphenhydrAMINE 50 MG/ML VIAL IVP PRN (10:45)
[2019-07-14] MEDS ORDERED: SUCRALFATE 1 GM TABLET. PO SCH (11:30)
[2019-07-14] MEDS ORDERED: PANT40TA77 PO (13:08)
[2019-07-14] MEDS ORDERED: KETO120S4 TP (13:08)
[2019-07-14] MEDS ORDERED: PRED-220 PO (13:08)
--- NOTE | 2019-07-14 13:14 | PDOC3 ---
Discharge Summary Visit Information Date of Admission: July 13, 2019 Date of Discharge: July 14, 2019 Admitting Diagnosis: Symptomatic anemia Final Diagnosis Problems Medical Problems: (1) GI bleed Status: Acute (2) Symptomatic anemia Status: Acute Brief Hospital Course Allergies Allergies Coded Allergies Type Severity Reaction Last Updated Verified No Known Drug Allergies 07/11/13 No Vital Signs Vital Signs Date Time Temp Pulse Resp B/P (MAP) Pulse Ox O2 Delivery O2 Flow Rate FiO2 07/14/19 11:57 98.6 85 20 108/53 98.6 07/14/19 11:41 95 Nasal Cannula 3.0 Lab Results Laboratory Tests Test 07/13/19 09:44 07/13/19 10:25 07/13/19 11:02 07/13/19 12:31 White Blood Count 13.3 x10^3/uL (4.0-11.0) Red Blood Count 3.87 x10^6/uL (3.50-5.40) Hemoglobin 5.9 g/dL (12.0-15.5) Hematocrit 21.5 % (36.0-47.0) Mean Corpuscular Volume 56 fL (79-100) Mean Corpuscular Hemoglobin 15 pg (25-35) Mean Corpuscular Hemoglobin Concent 27 g/dL (31-37) Red Cell Distribution Width 21.0 % (11.5-14.5) Platelet Count 341 x10^3/uL (140-400) Neutrophils (%) (Auto) 67 % (31-73) Lymphocytes (%) (Auto) 15 % (24-48) Monocytes (%) (Auto) 10 % (0-9) Eosinophils (%) (Auto) 7 % (0-3) Basophils (%) (Auto) 2 % (0-3) Neutrophils # (Auto) 8.8 x10^3/uL (1.8-7.7) Lymphocytes # (Auto) 1.9 x10^3/uL (1.0-4.8) Monocytes # (Auto) 1.3 x10^3/uL (0.0-1.1) Eosinophils # (Auto) 0.9 x10^3/uL (0.0-0.7) Basophils # (Auto) 0.3 x10^3/uL (0.0-0.2) Platelet Estimate Adequate (ADEQUATE) Polychromasia Slight Basophilic Stippling Present Anisocytosis Mod Prothrombin Time 14.7 SEC (11.7-14.0) Prothromb Time International Ratio 1.2 (0.8-1.1) Sodium Level 140 mmol/L (136-145) Potassium Level 4.3 mmol/L (3.5-5.1) Chloride Level 104 mmol/L (98-107) Carbon Dioxide Level 26 mmol/L (21-32) Anion Gap 10 (6-14) Blood Urea Nitrogen 11 mg/dL (7-20) Creatinine 0.9 mg/dL (0.6-1.0) Estimated GFR (Cockcroft-Gault) 61.4 BUN/Creatinine Ratio 12 (6-20) Glucose Level 169 mg/dL (70-99) Calcium Level 8.6 mg/dL (8.5-10.1) Iron Level 8 ug/dL (50-170) Total Iron Binding Capacity 258 ug/dL (250-450) Iron Saturation 3 % (15-34) Total Bilirubin 0.6 mg/dL (0.2-1.0) Aspartate Amino Transf (AST/SGOT) 20 U/L (15-37) Alanine Aminotransferase (ALT/SGPT) 11 U/L (14-59) Alkaline Phosphatase 95 U/L (46-116) Total Protein 6.0 g/dL (6.4-8.2) Albumin 2.6 g/dL (3.4-5.0) Albumin/Globulin Ratio 0.8 (1.0-1.7) Vitamin B12 Level 604 pg/mL (247-911) Urine Collection Type Unknown Urine Color Yellow Urine Clarity Clear Urine pH 6.5 (<5.0-8.0) Urine Specific [place] 1.020 (1.000-1.030) Urine Protein Negative mg/dL (NEG-TRACE) Urine Glucose (UA) Negative mg/dL (NEG) Urine Ketones (Stick) Trace mg/dL (NEG) Urine Blood Negative (NEG) Urine Nitrite Negative (NEG) Urine Bilirubin Negative (NEG) Urine Urobilinogen Dipstick 1.0 mg/dL (0.2 mg/dL) Urine Leukocyte Esterase Negative (NEG) Urine RBC 0 /HPF (0-2) Urine WBC Occ /HPF (0-4) Urine Squamous Epithelial Cells Mod /LPF Urine Bacteria Few /HPF (0-FEW) Urine Mucus Slight /LPF Stool Occult Blood Positive (NEG) Glucose (Fingerstick) 141 mg/dL (70-99) Test 07/13/19 16:50 07/13/19 20:55 07/13/19 21:42 07/14/19 04:25 Glucose (Fingerstick) 154 mg/dL (70-99) 298 mg/dL (70-99) Hemoglobin 7.3 g/dL (12.0-15.5) 6.7 g/dL (12.0-15.5) Hematocrit 24.9 % (36.0-47.0) 22.9 % (36.0-47.0) Mean Corpuscular Hemoglobin Concent 29 g/dL (31-37) 29 g/dL (31-37) Test 07/14/19 07:04 07/14/19 11:32 Glucose (Fingerstick) 194 mg/dL (70-99) 206 mg/dL (70-99) Laboratory Tests Test 07/13/19 16:50 07/13/19 20:55 07/13/19 21:42 07/14/19 04:25 Glucose (Fingerstick) 154 mg/dL (70-99) 298 mg/dL (70-99) Hemoglobin 7.3 g/dL (12.0-15.5) 6.7 g/dL (12.0-15.5) Hematocrit 24.9 % (36.0-47.0) 22.9 % (36.0-47.0) Mean Corpuscular Hemoglobin Concent 29 g/dL (31-37) 29 g/dL (31-37) Test 07/14/19 07:04 07/14/19 11:32 Glucose (Fingerstick) 194 mg/dL (70-99) 206 mg/dL (70-99) Brief Hospital Course Ms Little is a 74yo F w/ PMHx COPD on 3L NCO2, smoker, osteoporosis, OA, fibromyalgia, DM, GERD, and crohns with 1 month of chronic abdominal pain saw her PCP 07/12/2019, and was told to go to ED for blood transfusion. Hb 5.9 and fecal occult positive. BUN 11. She denies obvious bleeding including hematemesis, hematochezia, but does endorse melena for the past month. She is eating Jell-O, and is asking me for a ham sandwich. Crohn's apparently diagnosed on colonoscopy performed for abdominal pain and diarrhea, and she has previously been on Humira and oral DMARDS, but does not remember the name of any survey operations director, and tells me that she does not have a survey operations director, says "some old angela saw me and said he'd give me a prescription". BP 105/38. HR 110bpm, admitted to [facility] for further care Hb 6.7 after transfusion. Iron 8. Vital signs improved slightly. Afebrile. She has a voracious appetite. Abdominal pain significantly improved. She is completed a second transfusion and is receiving iron therapy right now is awaiting a CT scan. She complains of pruritus of the scalp and has requested that after her iron infusion and CT scan if she could be discharged home for outpatient follow-up with gastroenterology. Hb on discharge 8.8 CT revealed concern for terminal ileitis Problem list: Acute anemia - occult positive, on chronic B12 therapy and has received iron in the past. H/o Crohn's disease w/ chronic diarrhea and abdominal pain - not on oral meds, she does not wish for any enema therapy. DM2 - sliding scale inpatient COPD - on chronic 2L NCO2, nebs prn Smoker - counseled on nicotine cessation. She says she like it and will never quit. GERD - Cont PPI OA - with Chronic pain diagnosed with fibromyalgia, however is on opioids for treatment Seborrheic dermatitis of scalp Greater than 30 minutes spent on d/c home Discharge Information Condition at Discharge: Improved Follow Up: Weeks Disposition/Orders: D/C to Home Scheduled Escitalopram Oxalate (Escitalopram Oxalate) 10 Mg Tablet, 10 MG PO DAILY, #30 Ref 0 (Reported) Entered as Reported by: ILIANA VANG on 07/11/13 115 Insulin Aspart (Novolog) 100 Unit/1 Ml Vial, 25 UNIT SQ TIDWMEALS for diabetes, (Reported) Entered as Reported by: ILIANA VANG on 07/11/13 115 Last Action: Converted on 07/13/192153 by My Osei Insulin Glargine,Hum.rec.anlog (Lantus) 100 Unit/1 Ml Vial, 65 UNIT SQ HS for diabetes, (Reported) Entered as Reported by: ILIANA VANG on 07/11/13 115 Last Action: Continued on 07/13/192153 by My Osei Levothyroxine Sodium (Levothyroxine Sodium) 125 Mcg Tablet, 125 MCG PO DAILYAC, #30 (Reported) Entered as Reported by: ILIANA VANG on 07/11/13 115 Lisinopril (Lisinopril) 5 Mg Tablet, 5 MG PO DAILY, #30 Ref 0 (Reported) Entered as Reported by: ILIANA VANG on 07/11/13 115 Pantoprazole Sodium (Pantoprazole Sodium ) 40 Mg Tablet., 40 MG PO DAILYAC for GERD for 30 Days, #30 Prescribed by: LUZ FERRER MD on 07/14/19 1308 Prednisone (Prednisone ) 10 Mg Tablet, 1 TAB PO DAILY for Crohns flare for 5 Days, #5 Ref 0 Prescribed by: LUZ FERRER MD on 07/14/19 1308 Simvastatin (Simvastatin) 20 Mg Tablet, 20 MG PO DAILY, #30 Ref 0 (Reported) Entered as Reported by: ILIANA VANG on 07/11/13 115 Scheduled PRN Ketoconazole (Ketoconazole) 120 Ml Shampoo, 1 KEVIN TP PRN DAILY PRN for SEE COMMENTS for 30 Days, #1 Prescribed by: LUZ FERRER MD on 07/14/19 1308 Miscellaneous Medications Alendronate Sodium (Fosamax) 70 Mg Tablet, 70 MG PO, (Reported) Entered as Reported by: ILIANA VANG on 07/11/13 115 Ascorbic Acid (Vitamin C) 100 Mg Tablet, 100 MG PO, (Reported) Entered as Reported by: ILIANA VANG on 07/11/13 115 Carvedilol (Carvedilol ) 6.25 Mg Tablet, 6.25 MG PO, (Reported) Entered as Reported by: ILIANA VANG on 07/11/13 115 Cholecalciferol (Vitamin D3) (Vitamin D) 1,000 Unit Tablet, 1,000 UNIT PO, (Reported) Entered as Reported by: ILIANA VANG on 07/11/13 115 Last Action: Reviewed on 07/14/19907 by ALIE MASON RN Duloxetine Hcl (Cymbalta) 30 Mg Capsule.dr, 30 MG PO, (Reported) Entered as Reported by: ILIANA VANG on 07/11/13 115 Ferrous Sulfate, Dried (Ferrous Sulfate) 500 Gm Powder, 500 GM MC, (Reported) Entered as Reported by: ILIANA VANG on 07/11/131149 Gabapentin (Gabapentin ) 300 Mg Capsule, 300 MG PO, (Reported) Entered as Reported by: ILIANA VANG on 07/11/131149 Glimepiride (Glimepiride) 2 Mg Tablet, 2 MG PO, (Reported) Entered as Reported by: ILIANA VANG on 07/11/131149 Quetiapine Fumarate (Seroquel) 100 Mg Tablet, 100 MG PO, (Reported) Entered as Reported by: ILIANA VANG on 07/11/13 115 Discontinued Medications Digoxin (Digoxin) 250 Mcg Tablet, 250 MCG PO, (Reported) Entered as Reported by: ILIANA VANG on 07/11/131149 Levofloxacin (Levaquin) 500 Mg Tablet, 500 MG PO, (Reported) Entered as Reported by: ILIANA VANG on 07/11/131149 Tapentadol Hcl (Nucynta) 75 Mg Tablet, 75 MG PO, (Reported) Entered as Reported by: ILIANA VANG on 07/11/131149 LUZ FERRER MD July 14, 2019 13:13
[2019-07-14 14:08] LABS: HEMATOCRIT 28.7 % (36.0-47.0); HEMOGLOBIN 8.8 g/dL (12.0-15.5); RED BLOOD COUNT 4.46 x10^6/uL (3.50-5.40); RED CELL DISTRIBUTION WIDTH 33.3 % (11.5-14.5); WHITE BLOOD COUNT 10.7 x10^3/uL (4.0-11.0)
--- NOTE | 2019-07-14 16:09 | NUR ---
pt discharged home with self care, scripts for pantoprazole, prednisone and keto shampoo were given to the pt. she was wheeled down to the ED exit to her . Pete Osborne RN
--- NOTE | 2019-07-14 18:51 | RAD ---
EXAM: CT Abdomen and Pelvis without IV contrast INDICATION: Reason: chronic abd pain, Crohn's, anemia, hernias-PT STATES PAIN STIMULATOR / Spl. Instructions: / History: TECHNIQUE: Multi-detector row CT images were acquired from the lung bases through the abdomen and pelvis without the use of IV contrast. Sagittal and coronal images were acquired from the transaxial data. All CT scans performed at this facility utilize dose optimization techniques as appropriate to the exam, including the following: Automated exposure control and adjustment of the mA and/or KV according to patient size (this includes techniques or standardized protocols for targeted exams where dose is indication/reason for exam). ORAL CONTRAST: None COMPARISON: CT abdomen and pelvis without IV contrast of 07/09/2011 FINDINGS: The absence of IV contrast limits evaluation of soft tissue pathology. LOWER CHEST: Small left pleural effusion and associated left basilar atelectasis. Mild diffuse bilateral interlobular septal thickening and groundglass attenuation in the lingula and in the lateral basal segment right lower lobe. LIVER: Unremarkable BILIARY SYSTEM: Gallbladder is distended to 4.4 cm but shows no pericholecystic soft tissue stranding or CT evidence of wall thickening or calcified gallstones.. Bile ducts are not dilated. PANCREAS: Unremarkable SPLEEN: Unremarkable ADRENALS: Unremarkable KIDNEYS & URETERS: Unremarkable BLADDER: Unremarkable REPRODUCTIVE ORGANS: Unremarkable GASTROINTESTINAL: Postoperative changes from distal ileal and cecal surgical resection with primary anastomosis. There is soft tissue stranding in mesentery of the distal small bowel loops that show focal wall thickening near the anastomosis. No fluid-filled distended and shows for obstruction. Incidental postsurgical changes from previous sigmoid colonic partial resection. No evidence of recurrent inflammation at the site of anastomosis. There is diffuse spasm of the descending colon and rectosigmoid colon. Soft tissue stranding. Appendix is surgically absent. MESENTERY/PERITONEUM/RETROPERITONEUM: Unremarkable VASCULAR: Scattered arterial calcifications. LYMPH NODES: No adenopathy OSSEOUS & SOFT TISSUES: L5-S1 interbody prosthesis and interspinous prosthesis at L2-L3, L3-L4 and L4-L5 are redemonstrated. Addition, a spinal stimulator generator in the left lower back subtle cutaneous soft tissues is present with leads entering the spinal canal from the left at the T12-L1 level and extending up the lower thoracic spinal Canal the on the included field of view. No acute fracture or aggressive appearing osseous lesions. Multilevel lumbar spinal degenerative spondylosis, most notably at L4-L5 and at L2-L3. Evidence of previous ventral hernia mesh repair. IMPRESSION: Evidence of previous bowel surgery at the rectosigmoid junction and at the terminal ileum near the ileocecal junction with acute inflammatory changes evident in the mesentery in the right lower quadrant abdomen, suspicious for recurrent terminal ileitis. No evidence of bowel obstruction, perforation or abscess formation. Electronically signed by: Suhail Shen MD (07/14/2019 6:48 PM) [facility] [place]
[2019-07-14] MEDS ORDERED: ATORVASTATIN CALCIUM 40 MG TABLET. PO SCH (21:00)
[2019-07-14] MEDS ORDERED: traZODone 100 MG TABLET. PO SCH (21:00)
[2019-08-03] MEDS ORDERED: SULF500T36 PO (06:54)
[2019-08-03] MEDS ORDERED: MONT10TA49 PO (06:54)
[2019-08-03] MEDS ORDERED: FAMO20TA5 PO (06:54)
[2019-08-03] MEDS ORDERED: SUCR1TAB PO (06:54)
[2019-08-03] MEDS ORDERED: METO25TA4 PO (06:54)
[2019-08-03] MEDS ORDERED: PREG50CA91 PO (06:54)
== END 2019-07-14 16:13 | disposition home or self-care (01) | DRG 378 ==
LOC: ER 09:03 → 6 SOUTH 11:30
PROVIDERS: ADMIT Internal Medicine; ATTEND Internal Medicine
PROC: 30233N1 Transfusion of Nonautologous Red Blood Cells into Peripheral Vein, Percutaneous Approach (ICD-10-PCS; principal; 2019-07-13)
DX: K92.2 Gastrointestinal hemorrhage, unspecified (principal); K50.911 Crohn's disease, unspecified, with rectal bleeding; D64.9 Anemia, unspecified; E11.9 Type 2 diabetes mellitus without complications; F17.210 Nicotine dependence, cigarettes, uncomplicated; G89.29 Other chronic pain; J44.9 Chronic obstructive pulmonary disease, unspecified; K21.9 Gastro-esophageal reflux disease without esophagitis; L21.0 Seborrhea capitis; M79.7 Fibromyalgia; M81.0 Age-related osteoporosis without current pathological fracture; Z82.49 Family history of ischemic heart disease and other diseases of the circulatory system; Z83.3 Family history of diabetes mellitus; Z90.49 Acquired absence of other specified parts of digestive tract; Z90.710 Acquired absence of both cervix and uterus; F32.9 Major depressive disorder, single episode, unspecified; M19.90 Unspecified osteoarthritis, unspecified site; Z71.6 Tobacco abuse counseling
CPT/HCPCS: 36415; 74176; 80053; 81001; 82274; 82607; 82962; 83540; 83550; 85014; 85018; 85025; 85027; 85610; 86850; 86900; 86901; 86920; 94640; 99285; 99406; J1200; J1756; J1815; J7050; P9016; G0378; J7030

== ENCOUNTER → 2019-07-30 | Outpatient (CLI) | payer MEDICARE, OTHER ==
[2019-07-14 15:06] VITALS: BP 124/48
[~2019-07-30] MED LIST changes: +FAMO20TA5 PO; +KETO120S4 TP; +METO25TA4 PO; +MONT10TA49 PO; +PANT40TA77 PO; +PRED-220 PO; +PREG50CA91 PO; +SUCR1TAB PO; +SULF500T36 PO
== END | disposition home or self-care (01) ==
LOC: LAB 12:42
PROVIDERS: ATTEND Internal Medicine Gastroenterology
DX: Z01.818 Encounter for other preprocedural examination (principal); Z11.59 Encounter for screening for other viral diseases; D64.9 Anemia, unspecified
CPT/HCPCS: U0003-CS

== ENCOUNTER → 2019-08-03 | Day surgery (SDC) | payer MEDICARE, OTHER ==
[~2019-08-03] MED LIST changes: +IV RINGERS,LACTATED 1000ML 1,000 ML IV SCH; +LIDOCAINE 2% PF 5 ML VIAL. ONE; +PROPOFOL 10 MG/ML (20ML) VIAL. IV ONE
[2019-08-03 09:05] VITALS: BP 103/58
--- NOTE | 2019-08-03 10:42 | CONS ---
DATE OF CONSULTATION: 08/03/2019 REFERRING PHYSICIAN: Camden Acuña MD REASON FOR CONSULTATION: Crohn's and anemia. HISTORY OF PRESENT ILLNESS: A 74-year-old female with past medical history significant for COPD, osteoporosis as well as Crohn's disease, is seen for endoscopy. She was admitted to the hospital with hemoglobin 5.9, requiring transfusional support. She has been on biologic therapy as well as mesalamine therapy, but did not have any response; and therefore, discontinued. There has been no melena and/or hematochezia. Weight and appetite have been stable and she has been taking Prilosec daily for her GERD. She otherwise is feeling better since she has been transfused and typically has 2-5 stools per day. With her recent events, she is here for further evaluation. PAST MEDICAL HISTORY: Osteoporosis, anemia, Crohn's, diabetes, hypothyroidism, hypertension, GERD, hyperlipidemia. ALLERGIES: None. MEDICATIONS: Include Fosamax, ascorbic acid, vitamin D, Cymbalta, Pepcid, gabapentin, glimepiride, insulin, ketoconazole, levothyroxine, lisinopril, metoprolol, Singulair, pantoprazole, Lyrica, Seroquel, simvastatin, sucralfate and sulfasalazine 5 mg p.o. t.i.d. SOCIAL HISTORY: Smoker, plus she is a drinker. FAMILY HISTORY: Noncontributory. PAST SURGICAL HISTORY: Tonsillectomy, umbilical hernia repair, hysterectomy, appendectomy. She is a smoker. REVIEW OF SYSTEMS: HEENT: There is no decrease in visual acuity issues. CARDIAC: History of hypertension. ENDOCRINE: History of diabetes, hypothyroidism. PULMONARY: History of COPD. NEUROLOGIC: There is history of neuropathy. PSYCHIATRIC: No mood swings, depression or insomnia. HEMATOLOGIC: History of anemia. MUSCULOSKELETAL: History of osteoarthrosis. DERMATOLOGIC: No skin rashes or pruritus. PHYSICAL EXAMINATION: GENERAL: Reveals a well-nourished, well-developed female. VITAL SIGNS: Temperature is 98.2, pulse 94, respirations 20. LUNGS: Clear anteriorly. CARDIOVASCULAR: Reveals an S1, S2 without S3, S4 or appreciable murmur. ABDOMEN: Soft abdomen, normal bowel sounds, without appreciable hepatosplenomegaly with an incisional tenderness, or hernia. EXTREMITIES: Exam reveals no cyanosis, clubbing or edema. There are multiple ecchymoses and contusions on her arms. IMPRESSION: Anemia with Crohn's most likely is multifactorial with anemia of chronic disease contributing ulcer malignancy certainly will be assessed for as well. Surveillance biopsies with a history of Crohn's over 10 years in the colon. CHASITY PATTERSON MD DR: JAYLAN/ronnell JOB#: [id number] / [id number] CAMDEN Morales MD
--- NOTE | 2019-08-06 18:06 | PATHOLOGY ---
[facility] Accession Number: [id number] . 01 Material submitted: . PART A: colon - RIGHT COLON BIOPSY. Modifiers: right PART B: colon - TRANSVERSE COLON BIOPSY. Modifiers: transverse PART C: colon - LEFT COLON BIOPSY. Modifiers: left . 01 Clinical history: . anemia, Crohns . 02 Diagnosis: A. Colonic mucosa, right colon biopsies: - Melanosis coli. . B. Colonic mucosa, transverse colon biopsies: - Melanosis coli with small focus of active colitis. . C. Colonic mucosa, left colon biopsies: - Melanosis coli. . (JPM:mm; 08/06/2019) [facility] 08/06/2019 1235 Local . 02 Comment: Sections of the right colon, transverse colon, and left colon biopsies appear similar and reveal multiple segments of colonic mucosa showing features of melanosis coli. One of the mucosal biopsy segments from the transverse colon biopsy shows a small focus of active colitis in which there is focal neutrophilic crypt injury. This finding is not uncommon and it is usually an incidental finding, and may be seen with bowel prep. There is no evidence of an active chronic destructive colitis. There are no granulomas. There is no dysplasia or evidence of malignancy. . (JPM:mml; 08/06/2019) . 02 Electronically signed: . George Gallagher MD, Pathologist NPI- [id number] . 01 Gross description: . A. The specimen is received in formalin, labeled "Willie Littleki, right colon BX" and consists of multiple fragments of sterling tissue measuring 1.9 x 0.9 x 0.3 cm in aggregate which are entirely submitted in A1. . B. The specimen is received in formalin, labeled "An Little, transverse colon BX" and consists of multiple fragments of sterling tissue measuring 1.8 x 0.8 x 0.2 cm in aggregate which are entirely submitted in B1. . C. The specimen is received in formalin, labeled "An Little, left colon BX" and consists of multiple fragments of sterling tissue measuring 1.2 x 0.8 x 0.3 cm in aggregate which are entirely submitted in C1. (SDY; 08/03/2019) [facility]U 08/03/2019 1603 Local . 02 Pathologist provided ICD-10: K63.89, K52.9 . 02 CPT . 151525, 593589, [id number] Specimen Comment: A courtesy copy of this report has been sent to [phone], [phone] Specimen Comment: [phone] Specimen Comment: Report sent to / DR CABA Performed at: 01 [facility] [address], [place] [id number] MD Mikel Fontenot MD Phone: [phone] Performed at: 02 [facility] [address] [place], [place] [id number] MD George Gallagher MD Phone: [phone]
== END ==
LOC: ENDOS 06:26
PROVIDERS: ATTEND Internal Medicine Gastroenterology
DX: D64.9 Anemia, unspecified (principal); K63.89 Other specified diseases of intestine; K50.90 Crohn's disease, unspecified, without complications; J44.9 Chronic obstructive pulmonary disease, unspecified; K21.9 Gastro-esophageal reflux disease without esophagitis; E03.9 Hypothyroidism, unspecified; I10 Essential (primary) hypertension; F17.210 Nicotine dependence, cigarettes, uncomplicated; Z72.89 Other problems related to lifestyle; Z90.710 Acquired absence of both cervix and uterus
CPT/HCPCS: 43235; 45380; 82962; 88305; J2704; J3490

== ENCOUNTER 2019-10-25 18:30 | Inpatient (IN) | payer MEDICARE, OTHER ==
[~2019-10-25] VITALS: Ht 152.4 cm; Wt 68.4 kg
[~2019-10-25 18:30] MED LIST changes: -IV RINGERS,LACTATED 1000ML 1,000 ML IV SCH; -LIDOCAINE 2% PF 5 ML VIAL. ONE; -PROPOFOL 10 MG/ML (20ML) VIAL. IV ONE
--- NOTE | 2019-10-25 18:44 | EKG ---
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
[2019-10-25 18:52] LABS: BASO # 0.3 x10^3/uL (0.0-0.2); BASO % 1 % (0-3); EOS # 0.3 x10^3/uL (0.0-0.7); EOS % 1 % (0-3); HEMATOCRIT 31.5 % (36.0-47.0); HEMOGLOBIN 8.7 g/dL (12.0-15.5); LYMPH # 6.8 x10^3/uL (1.0-4.8); LYMPH % 24 % (24-48); MEAN CORPUSCULAR HEMOGLOBIN 15 pg (25-35); MEAN CORPUSCULAR HGB CONC 27 g/dL (31-37); MEAN CORPUSCULAR VOLUME 56 fL (79-100); MONO % 7 % (0-9); NEUT # 18.8 x10^3/uL (1.8-7.7); NEUT % 67 % (31-73); PLATELET COUNT 241 x10^3/uL (140-400); RED BLOOD COUNT 5.67 x10^6/uL (3.50-5.40); RED CELL DISTRIBUTION WIDTH 22.1 % (11.5-14.5); WHITE BLOOD COUNT 28.2 x10^3/uL (4.0-11.0)
[2019-10-25 19:14] LABS: CALCIUM 8.8 mg/dL (8.5-10.1); GFR 54.3; POTASSIUM 3.1 mmol/L (3.5-5.1)
[2019-10-25 19:18] LABS: ALBUMIN 2.9 g/dL (3.4-5.0); TOTAL BILIRUBIN 0.6 mg/dL (0.2-1.0); TOTAL PROTEIN 5.7 g/dL (6.4-8.2)
[2019-10-25 19:58] LABS: % BANDS 14 % (0-9); % BASOS 1 % (0-3); % EOS 1 % (0-5); % LYMPHS 31 % (24-48); % MONOS 6 % (0-10); % SEGS 47 % (35-66); HYPOCHROMIA MARKED; PLT ESTIMATE ADEQUATE (ADEQUATE)
[2019-10-25 19:59] LABS: ANISOCYTOSIS MOD; MICROCYTOSIS MARKED; POIKILOCYTOSIS SLIGHT
[2019-10-25 20:00] LABS: POLYCHROMASIA SLIGHT
--- NOTE | 2019-10-25 20:26 | RAD ---
EXAM: AP View of the chest DATE: 10/25/2019 6:41 PM INDICATION: Shortness of breath COMPARISON: No Prior FINDINGS: The heart is not enlarged. Aorta is tortuous with atherosclerotic calcifications. Small left pleural effusion. Left infrahilar lung base airspace opacities. No pneumothorax. IMPRESSION: Left infrahilar and lung base opacities favored to represent consolidative process such as pneumonia although atelectasis could also have this appearance. Small left pleural effusion. No pneumothorax. Electronically signed by: Sudheer Collins MD (10/25/2019 8:23 PM) [facility]
[2019-10-25] MEDS ORDERED: PIPERACILLIN/TAZOBACTAM 3.375 GM in IV NORMAL SALINE 50ML 50 ML IV ONE (20:30)
[2019-10-25] MEDS ORDERED: IV NORMAL SALINE 1000ML BAG 1,000 ML IV ONE (20:30)
--- NOTE | 2019-10-25 20:53 | PHYS DOC ---
Past Medical History Past Medical History: Anemia, Arthritis, Diabetes-Type II, Fibromyalgia Additional Past Medical Histor: abd hernia's, chrons Past Surgical History: Appendectomy, Hysterectomy, Other Additional Past Surgical Histo: mult colon sx's, lumbar disc sx, Smoking Status: Current Every Day Smoker Alcohol Use: None General Adult EDM: Chief Complaint: DYSPNEA/RESPIRATOY DISTRESS HPI: HPI: The history was obtained from the patient. Patient is a 74 old female with PMH multiple comorbidities who presents with a chief complaint of shortness of breath. Patient states she has had shortness of breath that began earlier today. She does note that is difficult to catch her breath. She does note a cough. Denies any sputum production. Denies any objective fevers. Unsure whether she has had exposure to coronavirus or not. Does note generalized weakness. Does not require oxygen at home. Per EMS that her how she was noted be satting at 78% on room air. She did improve to 90% on nonrebreather. She does have some chest discomfort. Denies syncope. Denies vomiting. Denies recent antibiotics. No other complaints. Review of Systems: Review of Systems: Constitutional: Denies fever or chills. [] Eyes: Denies change in visual acuity. [] HENT: Denies nasal congestion or sore throat. [] Respiratory: Positive for cough and shortness of breath Cardiovascular: Denies chest pain or edema. [] GI: Denies abdominal pain, nausea, vomiting, bloody stools or diarrhea. [] : Denies dysuria. [] Musculoskeletal: Denies back pain or joint pain. [] Integument: Denies rash. [] Neurologic: Denies headache, focal weakness or sensory changes. [] Endocrine: Denies polyuria or polydipsia. [] Lymphatic: Denies swollen glands. [] Psychiatric: Denies depression or anxiety. [] Heart Score: Risk Factors: Risk Factors: DM, Current or recent (<one month) smoker, HTN, HLP, family history of CAD, obesity. Risk Scores: Score 0 - 3: 2.5% MACE over next 6 weeks - Discharge Home Score 4 - 6: 20.3% MACE over next 6 weeks - Admit for Clinical Observation Score 7 - 10: 72.7% MACE over next 6 weeks - Early Invasive Strategies Current Medications: Current Medications Medications (Trade) Dose Ordered Sig/Nicolle Start Time Stop Time Status Last Admin Dose Admin Piperacillin Sod/ Tazobactam Sod 3.375 gm/Sodium Chloride 50 ml @ 100 mls/hr 1X ONCE 10/25/19 20:30 10/25/19 20:59 Sodium Chloride 1,000 ml @ 1,000 mls/hr 1X ONCE 10/25/19 20:30 10/25/19 21:29 Vancomycin HCl 2 gm/Sodium Chloride 500 ml @ 250 mls/hr 1X ONCE 10/25/19 21:00 10/25/19 22:59 Allergies: Allergies: Allergies Coded Allergies Type Severity Reaction Last Updated Verified No Known Drug Allergies 08/03/19 No Physical Exam: PE: Constitutional: Well developed, well nourished, no acute distress, non-toxic appearance. [] HENT: Normocephalic, atraumatic, bilateral external ears normal, oropharynx moist, no oral exudates, nose normal. [] Eyes: PERRLA, EOMI, conjunctiva normal, no discharge. [] Neck: Normal range of motion, no tenderness, supple, no stridor. [] Cardiovascular: Tachycardic, regular rhythm rhythm, no murmur [] Lungs & Thorax: Rhonchorous breath sounds throughout. Overall poor inspiration. Tachypneic. Nonrebreather in place. Abdomen: soft, no tenderness, no masses, no pulsatile masses. [] Skin: Warm, dry, no erythema, no rash. [] Back: No tenderness, no CVA tenderness. [] Extremities: No tenderness, no cyanosis, no clubbing, ROM intact, no edema. [] Neurologic: Alert and oriented X 3, normal motor function, normal sensory function, no focal deficits noted. [] Psychologic: Affect normal, judgement normal, mood normal. [] Current Patient Data: Labs: Laboratory Tests Test 10/25/19 18:42 White Blood Count 28.2 x10^3/uL (4.0-11.0) H Red Blood Count 5.67 x10^6/uL (3.50-5.40) H Hemoglobin 8.7 g/dL (12.0-15.5) L Hematocrit 31.5 % (36.0-47.0) L Mean Corpuscular Volume 56 fL (79-100) L Mean Corpuscular Hemoglobin 15 pg (25-35) L Mean Corpuscular Hemoglobin Concent 27 g/dL (31-37) L Red Cell Distribution Width 22.1 % (11.5-14.5) H Platelet Count 241 x10^3/uL (140-400) Neutrophils (%) (Auto) 67 % (31-73) Lymphocytes (%) (Auto) 24 % (24-48) Monocytes (%) (Auto) 7 % (0-9) Eosinophils (%) (Auto) 1 % (0-3) Basophils (%) (Auto) 1 % (0-3) Neutrophils # (Auto) 18.8 x10^3/uL (1.8-7.7) H Lymphocytes # (Auto) 6.8 x10^3/uL (1.0-4.8) H Monocytes # (Auto) 2.0 x10^3/uL (0.0-1.1) H Eosinophils # (Auto) 0.3 x10^3/uL (0.0-0.7) Basophils # (Auto) 0.3 x10^3/uL (0.0-0.2) H Segmented Neutrophils % 47 % (35-66) Band Neutrophils % 14 % (0-9) H Lymphocytes % 31 % (24-48) Monocytes % 6 % (0-10) Eosinophils % 1 % (0-5) Basophils % 1 % (0-3) Platelet Estimate Adequate (ADEQUATE) Polychromasia Slight Hypochromasia Marked Poikilocytosis Slight Anisocytosis Mod Microcytosis Marked Sodium Level 137 mmol/L (136-145) Potassium Level 3.1 mmol/L (3.5-5.1) L Chloride Level 101 mmol/L (98-107) Carbon Dioxide Level 27 mmol/L (21-32) Anion Gap 9 (6-14) Blood Urea Nitrogen 13 mg/dL (7-20) Creatinine 1.0 mg/dL (0.6-1.0) Estimated GFR (Cockcroft-Gault) 54.3 BUN/Creatinine Ratio 13 (6-20) Glucose Level 142 mg/dL (70-99) H Lactic Acid Level 2.7 mmol/L (0.4-2.0) H Calcium Level 8.8 mg/dL (8.5-10.1) Total Bilirubin 0.6 mg/dL (0.2-1.0) Aspartate Amino Transferase (AST) 18 U/L (15-37) Alanine Aminotransferase (ALT) 13 U/L (14-59) L Alkaline Phosphatase 79 U/L (46-116) Troponin I Quantitative 0.032 ng/mL (0.000-0.055) ZG-Szk-B-Type Natriuretic Peptide 935 pg/mL (0-124) H Total Protein 5.7 g/dL (6.4-8.2) L Albumin 2.9 g/dL (3.4-5.0) L Albumin/Globulin Ratio 1.0 (1.0-1.7) Laboratory Tests 10/25/19 18:42 Laboratory Tests 10/25/19 18:42 Vital Signs: Vital Signs Date Time Temp Pulse Resp B/P (MAP) Pulse Ox O2 Delivery O2 Flow Rate FiO2 10/25/19 19:32 116 116/53 (74) 94 BiPAP/CPAP 10/25/19 18:47 15.0 10/25/19 18:30 99.5 32 99.5 EKG: EKG: EKG consistent with sinus tachycardia. Right axis noted. Intervals normal. No acute ischemic changes appreciated. Right bundle branch block present. [] Radiology/Procedures: Radiology/Procedures: [][facility] [address] [place] [address] IMAGING REPORT Signed PATIENT: JADEN MEJIAS ACCOUNT: [id number] : 1945 LOCATION: ER AGE: 74 SEX: F EXAM STATUS: REG ER ORD. PHYSICIAN: HENRY BAUGH DO REASON: SOB PROCEDURE: CHEST AP ONLY EXAM: AP View of the chest DATE: 10/25/2019 6:41 PM INDICATION: Shortness of breath COMPARISON: No Prior FINDINGS: The heart is not enlarged. Aorta is tortuous with atherosclerotic calcifications. Small left pleural effusion. Left infrahilar lung base airspace opacities. No pneumothorax. IMPRESSION: Left infrahilar and lung base opacities favored to represent consolidative process such as pneumonia although atelectasis could also have this appearance. Small left pleural effusion. No pneumothorax. Electronically signed by: Sudheer De La Cruz MD (10/25/2019 8:23 PM) [facility] DICTATED and SIGNED BY: SUDHEER DE LA CRUZ MD DATE: 10/25/192022 Course & Med Decision Making: Course & Med Decision Making Pertinent Labs and Imaging studies reviewed. (See chart for details) [] Patient is a 74-year-old female presents with chief complaint of shortness of breath. Initial oxygen noted to be 78% in the field. On arrival she was satting 90% on a nonrebreather. She did show signs of increased work of marlon thing. BiPAP was initiated. This did improve the patient's work of breathing. Chest x-ray concerning for a left-sided infiltrate. Leukocytosis of 20,000. Lactate 2.7. IV fluids have been given. Broad-spectrum antibiotics administered. Blood cultures obtained and pending. COVID swab pending. She will require hospitalization for further treatment. Hemodynamically stable. COVID-19 CRITERIA: The patient was evaluated during the global COVID-19 pandemic, and that diagnosis was suspected/considered upon their initial presentation. Their evaluation, treatment and testing was consistent with current guidelines for patients who present with complaints or symptoms that may be related to COVID-19. Dragon Disclaimer: Dragon Disclaimer: This electronic medical record was generated, in whole or in part, using a voice recognition dictation system. Departure Departure Impression: Primary Impression: Pneumonia Qualified Codes: J18.9 - Pneumonia, unspecified organism Additional Impressions: Sepsis Suspected COVID-19 virus infection Lactic acidemia Disposition: ADMITTED INPATIENT Condition: STABLE Referrals: JANN CABA MD (PCP) Justicifation of Admission Dx: Justifications for Admission: Justification of Admission Dx: Yes Respiratory Failure: Severe Resp Distress HENRY BAUGH DO Oct 25, 2019 20:53
[2019-10-25] MEDS ORDERED: VANCOMYCIN 2 GM in IV NORMAL SALINE 500ML BAG 500 ML IV ONE (21:00)
[2019-10-25] MEDS ORDERED: ONDANSETRON PF 4 MG/2 ML VIAL. IV PRN (21:00)
[2019-10-25 21:12] LABS: BILIRUBIN,URINE SMALL (NEG); CLARITY,URINE CLEAR; COLOR,URINE AMBER; NITRITE,URINE NEGATIVE (NEG); PH,URINE 6.5 (<5.0-8.0); PROTEIN,URINE NEGATIVE (NEG-TRACE)
[2019-10-25 21:18] LABS: BACTERIA,URINE 0 /HPF (0-FEW); RBC,URINE 0 /HPF (0-2); SQUAMOUS EPITHELIAL CELL,UR FEW /LPF; WBC,URINE 0 /HPF (0-4)
[2019-10-25 22:45] VITALS: BP 157/108
[2019-10-25 23:00] VITALS: BP 98/46
[2019-10-25 23:15] VITALS: BP 111/41
[2019-10-25 23:30] VITALS: BP 96/44
[2019-10-25] MEDS ORDERED: FUROSEMIDE 40 MG/4 ML VIAL. IVP ONE (23:30)
[2019-10-25 23:59] VITALS: BP 108/36
[2019-10-26] VITALS (15 sets, daily range): BP systolic 95–161; BP diastolic 41–124
[2019-10-26 04:24] LABS: BASO # 0.2 x10^3/uL (0.0-0.2); BASO % 1 % (0-3); EOS # 0.1 x10^3/uL (0.0-0.7); EOS % 1 % (0-3); HEMATOCRIT 27.8 % (36.0-47.0); HEMOGLOBIN 7.7 g/dL (12.0-15.5); LYMPH # 3.1 x10^3/uL (1.0-4.8); LYMPH % 17 % (24-48); MEAN CORPUSCULAR HEMOGLOBIN 15 pg (25-35); MEAN CORPUSCULAR HGB CONC 28 g/dL (31-37); MEAN CORPUSCULAR VOLUME 56 fL (79-100); MONO # 1.6 x10^3/uL (0.0-1.1); MONO % 9 % (0-9); NEUT # 13.4 x10^3/uL (1.8-7.7); NEUT % 73 % (31-73); PLATELET COUNT 218 x10^3/uL (140-400); RED BLOOD COUNT 5.01 x10^6/uL (3.50-5.40); WHITE BLOOD COUNT 18.4 x10^3/uL (4.0-11.0)
[2019-10-26 05:23] LABS: CALCIUM 8.2 mg/dL (8.5-10.1); GFR 54.3
[2019-10-26 09:26] LABS: PCO2 ABG 35 mmHg (35-46)
[2019-10-26 09:27] LABS: BASE EXCESS ABG 4 mmol/L (-3-3); FIO2 ABG 100; HCO3 ABG 27 mmol/L (21-28); PO2 ABG 59 mmHg (65-108); SAT O2 ABG 90 % (92-99)
[2019-10-26 10:05] LABS: BASE EXCESS ABG 3 mmol/L (-3-3); HCO3 ABG 27 mmol/L (21-28); PCO2 ABG 36 mmHg (35-46); PO2 ABG 71 mmHg (65-108); SAT O2 ABG 92 % (92-99)
[2019-10-26 10:13] LABS: FIO2 ABG 40%
[2019-10-26] MEDS ORDERED: KETOCONAZOLE 2% SHAMPOO 120ML BOTTLE. TP PRN (10:30)
[2019-10-26] MEDS: INSULIN LISPRO 300 UNITS/3 ML VIAL. SQ SCH ×2 (12:00→17:00)
[2019-10-26] MEDS ORDERED: GABAPENTIN 300 MG CAPSULE. PO SCH (12:00)
[2019-10-26] MEDS ORDERED: DULoxetine HCL 30 MG CAPSULE.DR PO SCH (12:00)
[2019-10-26] MEDS: DULoxetine HCL 30 MG CAPSULE.DR PO SCH ×2 (12:39→23:26)
[2019-10-26] MEDS: SUCRALFATE 1 GM TABLET. PO SCH ×3 (12:39→23:26)
[2019-10-26] MEDS: FAMOTIDINE 20 MG TABLET. PO SCH (12:39)
[2019-10-26] MEDS: GLIMEPIRIDE 2 MG TABLET. PO SCH (12:39)
--- NOTE | 2019-10-26 13:43 | NUR ---
Nursing Note 1200 dose of Insulin non administered due to pt refusing to eat/drink lunch.
[2019-10-26] MEDS ORDERED: DOCUSATE SODIUM 100 MG CAPSULE. PO PRN (13:45)
[2019-10-26] MEDS ORDERED: guaiFENesin ORAL 200 MG/10 ML LIQUID. PO PRN (13:45)
[2019-10-26] MEDS ORDERED: ONDANSETRON PF 4 MG/2 ML VIAL. IV PRN (13:45)
[2019-10-26] MEDS ORDERED: ACETAMINOPHEN 325 MG TABLET. PO PRN (13:45)
[2019-10-26] MEDS ORDERED: ZOLPIDEM 5 MG TABLET. PO PRN (13:45)
[2019-10-26] MEDS ORDERED: diphenhydrAMINE 50 MG/ML VIAL IVP PRN (13:45)
[2019-10-26] MEDS ORDERED: ALBUTEROL SULFATE 2.5 MG/3 ML NEBU. NEB PRN (13:45)
[2019-10-26] MEDS ORDERED: LORazepam 0.5 MG TABLET PO PRN (13:45)
--- NOTE | 2019-10-26 13:50 | PDOC1 ---
History and Physical Date of Admission Date of Admission 10/26/2019 Identification/Chief Complaint Chief Complaint shortness of breath Source Source: Chart review, Patient History of Present Illness History of Present Illness Patient is a 74-year-old female with past medical history of Crohn's disease diabetes mellitus type 2 fibromyalgia who was in her usual state of health until the day of her admission when was noted by her family to be quite short of breath. The patient denies any fever no upper respiratory tract infection symptoms no cough sneezing no sinus pressure no headache no generalized malaise and no contacts with COVID-19 patients. The patient was brought by her family due to the respiratory issues and according to the ER department report and documentation the patient required BiPAP, they also tested for COVID-19 reason why she was transferred to the intensive care unit for further management. The patient once she got to the intensive care unit did not require BiPAP support a nd has been on room air ever since. The patient at the time my evaluation is in no acute distress wanting to go home I have explained the situation that due to COVID-19 testing she needs to remain in the hospital until this is confirmed negative. The patient denies any fever no pleurisy no nausea vomiting no diarrhea and the patient unfortunately soiled herself prior to my encounter, neurologically she does not have any deficits and is hoping to be discharged soon. Plan of care has been explained in detail no other concerns were voiced by the patient during my visit ER documentation is as follows: Past Medical History Past Medical History: Anemia, Arthritis, Diabetes-Type II, Fibromyalgia Additional Past Medical Histor: abd hernia's, chrons Past Surgical History: Appendectomy, Hysterectomy, Other Additional Past Surgical Histo: mult colon sx's, lumbar disc sx, Smoking Status: Current Every Day Smoker Alcohol Use: None General Adult General Adult EDM: Chief Complaint: DYSPNEA/RESPIRATOY DISTRESS HPI: HPI: The history was obtained from the patient. Patient is a 74 old female with PMH multiple comorbidities who presents with a chief complaint of shortness of gio ath. Patient states she has had shortness of breath that began earlier today. She does note that is difficult to catch her breath. She does note a cough. Denies any sputum production. Denies any objective fevers. Unsure whether she has had exposure to coronavirus or not. Does note generalized weakness. Does not require oxygen at home. Per EMS that her how she was noted be satting at 78% on room air. She did improve to 90% on nonrebreather. She does have some chest discomfort. Denies syncope. Denies vomiting. Denies recent antibiotics. No other complaints Past Medical History Cardiovascular: No pertinent hx GI: GERD, Inflam bowel disease Heme/Onc: No pertinent hx Hepatobiliary: No pertinent hx Psych: Depression Rheumatologic: Fibromyalgia Infectious disease: No pertinent hx Renal/: No pertinent hx Endocrine: Diabetes Family History Family History: Diabetes, Hypertension Social History ALCOHOL: none Drugs: None Current Problem List Problem List Problems Medical Problems: (1) Lactic acidemia Status: Acute (2) Pneumonia Status: Acute (3) Sepsis Status: Acute (4) Suspected COVID-19 virus infection Status: Acute Current Medications Current Medications Current Medications Medications (Trade) Dose Ordered Sig/Nicolle Start Time Stop Time Status Last Admin Dose Admin Duloxetine HCl (Cymbalta) 60 mg BID 10/26/19 12:00 10/26/19 12:39 60 MG Famotidine (Pepcid) 20 mg DAILY 10/26/19 12:00 10/26/19 12:39 20 MG Furosemide (Lasix) 40 mg 1X ONCE 10/25/19 23:30 10/25/19 23:31 DC 10/25/19 23:32 40 MG Gabapentin (Neurontin) 300 mg DAILY 10/26/19 12:00 Cancel Glimepiride (Amaryl) 2 mg DAILY 10/26/19 12:00 10/26/19 12:39 2 MG Insulin Glargine (Lantus Syringe) 65 unit HS 10/26/19 21:00 Insulin Human Lispro (HumaLOG) 25 units TIDWMEALS 10/26/19 12:00 Ketoconazole (Nizoral 2% Shampoo) 1 wang PRN DAILY PRN 10/26/19 10:30 Levothyroxine Sodium (Synthroid) 125 mcg DAILYAC 10/27/19 07:30 Lisinopril (Prinivil) 5 mg DAILY 10/27/19 09:00 Lorazepam (Ativan Inj) 0.5 mg PRN Q6HRS PRN 10/26/19 01:45 Metoprolol Tartrate (Lopressor) 25 mg BID 10/26/19 21:00 Montelukast Sodium (Singulair) 10 mg HS 10/26/19 21:00 Non-Formulary Medication (Escitalopram Oxalate ) 10 mg DAILY 10/27/19 09:00 UNV Ondansetron HCl (Zofran) 4 mg PRN Q8HRS PRN 10/25/19 21:00 10/26/19 20:59 Pantoprazole Sodium (Protonix) 40 mg DAILYAC 10/27/19 07:30 Piperacillin Sod/ Tazobactam Sod 3.375 gm/Sodium Chloride 50 ml @ 100 mls/hr 1X ONCE 10/25/19 20:30 10/25/19 20:59 DC 10/25/19 20:30 100 MLS/HR Pregabalin (Lyrica) 150 mg TID 10/26/19 14:00 Quetiapine Fumarate (SEROquel) 100 mg QHS 10/26/19 21:00 Simvastatin (Zocor) 20 mg QHS 10/26/19 21:00 Sodium Chloride 1,000 ml @ 1,000 mls/hr 1X ONCE 10/25/19 20:30 10/25/19 21:29 DC 10/25/19 20:30 1,000 MLS/HR Sucralfate (Carafate) 1 gm QID 10/26/19 13:00 10/26/19 12:39 1 GM Sulfasalazine (Azulfidine) 500 mg TID 10/26/19 14:00 Vancomycin HCl 2 gm/Sodium Chloride 500 ml @ 250 mls/hr 1X ONCE 10/25/19 21:00 10/25/19 22:59 DC 10/25/19 20:57 250 MLS/HR Vitamin D (Vitamin D3) 1,000 unit DAILY 10/27/19 09:00 Allergies Allergies Allergies Coded Allergies Type Severity Reaction Last Updated Verified No Known Drug Allergies 08/03/19 No ROS Review of System CONSTITUTIONAL: No fever or chills EYES: No recent changes SKIN: No rash or itching CARDIOVASCULAR: No chest pain, syncope, palpitations, or edema RESPIRATORY: No SOB or cough GASTROINTESTINAL: No nausea, vomiting or abdominal pain NEUROLOGICAL: No headaches or weakness ENDOCRINE: No cold or heat intolerance GENITOURINARY: No urgency or frequency of urination MUSCULOSKELETAL: No back pain or joint pain LYMPHATICS: No enlarged lymph nodes PSYCHIATRIC: No anxiety or depression Physical Exam Physical Exam GEN.: No apparent distress. Alert and oriented. HEENT: Head is normocephalic, atraumatic NECK: Supple. LUNGS: Clear to auscultation. HEART: RRR, S1, S2 present. Peripheral pulses intact ABDOMEN: Soft, nontender. Positive bowel sounds. EXTREMITIES: Without any cyanosis. NEUROLOGIC: Normal speech, normal tone PSYCHIATRIC: Normal affect, normal mood. SKIN: No ulcerations Vitals Vitals Vital Signs Date Time Temp Pulse Resp B/P (MAP) Pulse Ox O2 Delivery O2 Flow Rate FiO2 10/26/19 12:00 Venturi Mask 10/26/19 09:00 111 24 149/51 (83) 97 4.0 10/26/19 08:00 99.0 99.0 Labs Labs Laboratory Tests Test 10/25/19 18:41 10/25/19 18:42 10/25/19 21:02 10/26/19 03:00 O2 Saturation 90 % (92-99) Arterial Blood pH 7.50 (7.35-7.45) Arterial Blood pCO2 at Patient Temp 35 mmHg (35-46) Arterial Blood pO2 at Patient Temp 59 mmHg (65-108) Arterial Blood HCO3 27 mmol/L (21-28) Arterial Blood Base Excess 4 mmol/L (-3-3) FiO2 100 White Blood Count 28.2 x10^3/uL (4.0-11.0) 18.4 x10^3/uL (4.0-11.0) Red Blood Count 5.67 x10^6/uL (3.50-5.40) 5.01 x10^6/uL (3.50-5.40) Hemoglobin 8.7 g/dL (12.0-15.5) 7.7 g/dL (12.0-15.5) Hematocrit 31.5 % (36.0-47.0) 27.8 % (36.0-47.0) Mean Corpuscular Volume 56 fL (79-100) 56 fL (79-100) Mean Corpuscular Hemoglobin 15 pg (25-35) 15 pg (25-35) Mean Corpuscular Hemoglobin Concent 27 g/dL (31-37) 28 g/dL (31-37) Red Cell Distribution Width 22.1 % (11.5-14.5) 22.0 % (11.5-14.5) Platelet Count 241 x10^3/uL (140-400) 218 x10^3/uL (140-400) Neutrophils (%) (Auto) 67 % (31-73) 73 % (31-73) Lymphocytes (%) (Auto) 24 % (24-48) 17 % (24-48) Monocytes (%) (Auto) 7 % (0-9) 9 % (0-9) Eosinophils (%) (Auto) 1 % (0-3) 1 % (0-3) Basophils (%) (Auto) 1 % (0-3) 1 % (0-3) Neutrophils # (Auto) 18.8 x10^3/uL (1.8-7.7) 13.4 x10^3/uL (1.8-7.7) Lymphocytes # (Auto) 6.8 x10^3/uL (1.0-4.8) 3.1 x10^3/uL (1.0-4.8) Monocytes # (Auto) 2.0 x10^3/uL (0.0-1.1) 1.6 x10^3/uL (0.0-1.1) Eosinophils # (Auto) 0.3 x10^3/uL (0.0-0.7) 0.1 x10^3/uL (0.0-0.7) Basophils # (Auto) 0.3 x10^3/uL (0.0-0.2) 0.2 x10^3/uL (0.0-0.2) Segmented Neutrophils % 47 % (35-66) Band Neutrophils % 14 % (0-9) Lymphocytes % 31 % (24-48) Monocytes % 6 % (0-10) Eosinophils % 1 % (0-5) Basophils % 1 % (0-3) Platelet Estimate Adequate (ADEQUATE) Polychromasia Slight Hypochromasia Marked Poikilocytosis Slight Anisocytosis Mod Microcytosis Marked Sodium Level 137 mmol/L (136-145) 139 mmol/L (136-145) Potassium Level 3.1 mmol/L (3.5-5.1) 3.0 mmol/L (3.5-5.1) Chloride Level 101 mmol/L (98-107) 103 mmol/L (98-107) Carbon Dioxide Level 27 mmol/L (21-32) 28 mmol/L (21-32) Anion Gap 9 (6-14) 8 (6-14) Blood Urea Nitrogen 13 mg/dL (7-20) 11 mg/dL (7-20) Creatinine 1.0 mg/dL (0.6-1.0) 1.0 mg/dL (0.6-1.0) Estimated GFR (Cockcroft-Gault) 54.3 54.3 BUN/Creatinine Ratio 13 (6-20) Glucose Level 142 mg/dL (70-99) 235 mg/dL (70-99) Lactic Acid Level 2.7 mmol/L (0.4-2.0) 2.0 mmol/L (0.4-2.0) Calcium Level 8.8 mg/dL (8.5-10.1) 8.2 mg/dL (8.5-10.1) Total Bilirubin 0.6 mg/dL (0.2-1.0) Aspartate Amino Transf (AST/SGOT) 18 U/L (15-37) Alanine Aminotransferase (ALT/SGPT) 13 U/L (14-59) Alkaline Phosphatase 79 U/L (46-116) Troponin I Quantitative 0.032 ng/mL (0.000-0.055) SW-Zoy-H-Type Natriuretic Peptide 935 pg/mL (0-124) Total Protein 5.7 g/dL (6.4-8.2) Albumin 2.9 g/dL (3.4-5.0) Albumin/Globulin Ratio 1.0 (1.0-1.7) Urine Collection Type U cath Urine Color Michelle Urine Clarity Clear Urine pH 6.5 (<5.0-8.0) Urine Specific Corona 1.020 (1.000-1.030) Urine Protein Negative mg/dL (NEG-TRACE) Urine Glucose (UA) Negative mg/dL (NEG) Urine Ketones (Stick) Negative mg/dL (NEG) Urine Blood Negative (NEG) Urine Nitrite Negative (NEG) Urine Bilirubin Small (NEG) Urine Urobilinogen Dipstick 1.0 mg/dL (0.2 mg/dL) Urine Leukocyte Esterase Negative (NEG) Urine RBC 0 /HPF (0-2) Urine WBC 0 /HPF (0-4) Urine Squamous Epithelial Cells Few /LPF Urine Bacteria 0 /HPF (0-FEW) Urine Mucus Slight /LPF Test 10/26/19 10:00 O2 Saturation 92 % (92-99) Arterial Blood pH 7.49 (7.35-7.45) Arterial Blood pCO2 at Patient Temp 36 mmHg (35-46) Arterial Blood pO2 at Patient Temp 71 mmHg (65-108) Arterial Blood HCO3 27 mmol/L (21-28) Arterial Blood Base Excess 3 mmol/L (-3-3) FiO2 40% Laboratory Tests Test 10/25/19 18:41 10/25/19 18:42 10/25/19 21:02 10/26/19 03:00 O2 Saturation 90 % (92-99) Arterial Blood pH 7.50 (7.35-7.45) Arterial Blood pCO2 at Patient Temp 35 mmHg (35-46) Arterial Blood pO2 at Patient Temp 59 mmHg (65-108) Arterial Blood HCO3 27 mmol/L (21-28) Arterial Blood Base Excess 4 mmol/L (-3-3) FiO2 100 White Blood Count 28.2 x10^3/uL (4.0-11.0) 18.4 x10^3/uL (4.0-11.0) Red Blood Count 5.67 x10^6/uL (3.50-5.40) 5.01 x10^6/uL (3.50-5.40) Hemoglobin 8.7 g/dL (12.0-15.5) 7.7 g/dL (12.0-15.5) Hematocrit 31.5 % (36.0-47.0) 27.8 % (36.0-47.0) Mean Corpuscular Volume 56 fL (79-100) 56 fL (79-100) Mean Corpuscular Hemoglobin 15 pg (25-35) 15 pg (25-35) Mean Corpuscular Hemoglobin Concent 27 g/dL (31-37) 28 g/dL (31-37) Red Cell Distribution Width 22.1 % (11.5-14.5) 22.0 % (11.5-14.5) Platelet Count 241 x10^3/uL (140-400) 218 x10^3/uL (140-400) Neutrophils (%) (Auto) 67 % (31-73) 73 % (31-73) Lymphocytes (%) (Auto) 24 % (24-48) 17 % (24-48) Monocytes (%) (Auto) 7 % (0-9) 9 % (0-9) Eosinophils (%) (Auto) 1 % (0-3) 1 % (0-3) Basophils (%) (Auto) 1 % (0-3) 1 % (0-3) Neutrophils # (Auto) 18.8 x10^3/uL (1.8-7.7) 13.4 x10^3/uL (1.8-7.7) Lymphocytes # (Auto) 6.8 x10^3/uL (1.0-4.8) 3.1 x10^3/uL (1.0-4.8) Monocytes # (Auto) 2.0 x10^3/uL (0.0-1.1) 1.6 x10^3/uL (0.0-1.1) Eosinophils # (Auto) 0.3 x10^3/uL (0.0-0.7) 0.1 x10^3/uL (0.0-0.7) Basophils # (Auto) 0.3 x10^3/uL (0.0-0.2) 0.2 x10^3/uL (0.0-0.2) Segmented Neutrophils % 47 % (35-66) Band Neutrophils % 14 % (0-9) Lymphocytes % 31 % (24-48) Monocytes % 6 % (0-10) Eosinophils % 1 % (0-5) Basophils % 1 % (0-3) Platelet Estimate Adequate (ADEQUATE) Polychromasia Slight Hypochromasia Marked Poikilocytosis Slight Anisocytosis Mod Microcytosis Marked Sodium Level 137 mmol/L (136-145) 139 mmol/L (136-145) Potassium Level 3.1 mmol/L (3.5-5.1) 3.0 mmol/L (3.5-5.1) Chloride Level 101 mmol/L (98-107) 103 mmol/L (98-107) Carbon Dioxide Level 27 mmol/L (21-32) 28 mmol/L (21-32) Anion Gap 9 (6-14) 8 (6-14) Blood Urea Nitrogen 13 mg/dL (7-20) 11 mg/dL (7-20) Creatinine 1.0 mg/dL (0.6-1.0) 1.0 mg/dL (0.6-1.0) Estimated GFR (Cockcroft-Gault) 54.3 54.3 BUN/Creatinine Ratio 13 (6-20) Glucose Level 142 mg/dL (70-99) 235 mg/dL (70-99) Lactic Acid Level 2.7 mmol/L (0.4-2.0) 2.0 mmol/L (0.4-2.0) Calcium Level 8.8 mg/dL (8.5-10.1) 8.2 mg/dL (8.5-10.1) Total Bilirubin 0.6 mg/dL (0.2-1.0) Aspartate Amino Transf (AST/SGOT) 18 U/L (15-37) Alanine Aminotransferase (ALT/SGPT) 13 U/L (14-59) Alkaline Phosphatase 79 U/L (46-116) Troponin I Quantitative 0.032 ng/mL (0.000-0.055) YR-Yba-B-Type Natriuretic Peptide 935 pg/mL (0-124) Total Protein 5.7 g/dL (6.4-8.2) Albumin 2.9 g/dL (3.4-5.0) Albumin/Globulin Ratio 1.0 (1.0-1.7) Urine Collection Type U cath Urine Color Michelle Urine Clarity Clear Urine pH 6.5 (<5.0-8.0) Urine Specific Corona 1.020 (1.000-1.030) Urine Protein Negative mg/dL (NEG-TRACE) Urine Glucose (UA) Negative mg/dL (NEG) Urine Ketones (Stick) Negative mg/dL (NEG) Urine Blood Negative (NEG) Urine Nitrite Negative (NEG) Urine Bilirubin Small (NEG) Urine Urobilinogen Dipstick 1.0 mg/dL (0.2 mg/dL) Urine Leukocyte Esterase Negative (NEG) Urine RBC 0 /HPF (0-2) Urine WBC 0 /HPF (0-4) Urine Squamous Epithelial Cells Few /LPF Urine Bacteria 0 /HPF (0-FEW) Urine Mucus Slight /LPF Test 10/26/19 10:00 O2 Saturation 92 % (92-99) Arterial Blood pH 7.49 (7.35-7.45) Arterial Blood pCO2 at Patient Temp 36 mmHg (35-46) Arterial Blood pO2 at Patient Temp 71 mmHg (65-108) Arterial Blood HCO3 27 mmol/L (21-28) Arterial Blood Base Excess 3 mmol/L (-3-3) FiO2 40% VTE Prophylaxis Ordered VTE Prophylaxis Devices: No VTE Pharmacological Prophylaxi: Yes Assessment/Plan Assessment/Plan Acute hypoxemic respiratory failure resolved H/o Crohn's disease w/ chronic diarrhea and abdominal pain - not on oral meds DM2 - COPD - on chronic 2L NCO2, nebs prn Smoker - counseled on nicotine cessation. She says she like it and will never quit. GERD - Cont PPI OA - with Chronic pain diagnosed with fibromyalgia, however is on opioids for treatment Seborrheic dermatitis of scalp History of GERD Plan: Patient may transfer to 6 floor Await for COVID-19 testing Patient may be discharged once COVID-19 testing confirmed negative Resume home medications Further recommendations based on the clinical course Justifications for Admission Other Justification RADHA TEIXEIRA MD Oct 26, 2019 13:50
--- NOTE | 2019-10-26 14:01 | NUR ---
SS following for discharge planning. SS reviewed pt chart and discussed with pt RN. Pt is from home with spouse and is currently requiring oxygen. COVID19 test pending. Pt having confusion. SS will continue to follow for discharge planning.
[2019-10-26] MEDS ORDERED: FUROSEMIDE 40 MG/4 ML VIAL. IVP ONE (15:00)
[2019-10-26] MEDS: sulfaSALAzine 500 MG TABLET PO SCH ×2 (15:52→23:26)
[2019-10-26] MEDS: PREGABALIN 75 MG CAPSULE PO SCH ×2 (15:52→23:27)
[2019-10-26] MEDS: POTASSIUM CHLORIDE 20 MEQ TABLET.ER. PO SCH ×2 (15:52→17:29)
[2019-10-26] MEDS: ENOXAPARIN 40 MG/0.4 ML SYRINGE. SQ SCH (15:54)
[2019-10-26] MEDS ORDERED: SIMVASTATIN 20 MG TABLET PO SCH (21:00)
[2019-10-26] MEDS ORDERED: QUEtiapine 100 MG TABLET. PO SCH (21:00)
[2019-10-26] MEDS ORDERED: INSULIN GLARGINE SYRINGE. SQ SCH (21:00)
[2019-10-26] MEDS ORDERED: MONTELUKAST SODIUM 10 MG TABLET. PO SCH (21:00)
[2019-10-26] MEDS: METOPROLOL TART IMMED RELEASE 25 MG TABLET. PO SCH (23:27)
[2019-10-27 03:58] VITALS: BP 117/52
[2019-10-27 07:15] VITALS: BP 109/48
[2019-10-27] MEDS ORDERED: LEVOTHYROXINE 125 MCG TABLET PO SCH (07:30)
[2019-10-27] MEDS: INSULIN LISPRO 300 UNITS/3 ML VIAL. SQ SCH ×3 (08:00→17:00)
[2019-10-27] MEDS ORDERED: NON FORMULARY ITEM (Escitalopram Oxalate 10 MG) PO SCH (09:00)
[2019-10-27] MEDS ORDERED: LISINOPRIL 5 MG TABLET. PO SCH (09:00)
[2019-10-27] MEDS: PREGABALIN 75 MG CAPSULE PO SCH ×3 (09:00→22:20)
[2019-10-27] MEDS: DULoxetine HCL 30 MG CAPSULE.DR PO SCH ×2 (10:07→22:18)
[2019-10-27] MEDS: FAMOTIDINE 20 MG TABLET. PO SCH (10:07)
[2019-10-27] MEDS: CHOLECALCIFEROL (VITAMIN D3) 1,000 UNIT TABLET PO SCH (10:07)
[2019-10-27] MEDS: PANTOPRAZOLE 40 MG TABLET.DR. PO SCH (10:07)
[2019-10-27] MEDS: sulfaSALAzine 500 MG TABLET PO SCH ×3 (10:07→22:19)
[2019-10-27] MEDS: GLIMEPIRIDE 2 MG TABLET. PO SCH (10:08)
[2019-10-27] MEDS: METOPROLOL TART IMMED RELEASE 25 MG TABLET. PO SCH (10:08)
[2019-10-27] MEDS: SUCRALFATE 1 GM TABLET. PO SCH ×4 (10:09→22:21)
--- NOTE | 2019-10-27 10:26 | PDOC ---
PROGRESS NOTES Date of Service: DATE: 10/27/19 TIME: 10:26 Chief Complaint Chief Complaint VTE Prophylaxis Ordered VTE Prophylaxis Devices: No VTE Pharmacological Prophylaxi: Yes impression Assessment/Plan diabetes Acute hypoxemic respiratory failure Left infrahilar and lung base opacities favored to represent consolidative process such as pneumonia although atelectasis could also have this appearance H/o Crohn's disease w/ chronic diarrhea and abdominal pain - not on oral meds DM2 - COPD - on chronic 2L NCO2, nebs prn Smoker - counseled on nicotine cessation. She says she like it and will never quit. GERD - Cont PPI OA - with Chronic pain diagnosed with fibromyalgia, however is on opioids for treatment Seborrheic dermatitis of scalp History of GERD Plan: transfer to 6 floor Await for COVID-19 testing Patient may be discharged once COVID-19 testing confirmed negative if ok with pulm Resume home medications Further recommendations based on the clinical course SS INSULIN COVID 19 SCREEN 39 min pt exam, chart review, > 50% of time spent with exam, chart review, pt care coordination Justifications for Admission Justifications for Admission Other Justification History of Present Illness History of Present Illness History of Present Illness History of Present Illness Patient is a 74-year-old female with past medical history of Crohn's disease diabetes mellitus type 2 fibromyalgia who was in her usual state of health until the day of her admission when was noted by her family to be quite short of breath. The patient denies any fever no upper respiratory tract infection symptoms no cough sneezing no sinus pressure no headache no generalized malaise and no contacts with COVID-19 patients. The patient was brought by her family due to the respiratory issues and according to the ER department report and documentation the patient required BiPAP, they also tested for COVID-19 reason why she was transferred to the intensive care unit for further management. The patient once she got to the intensive care unit did not require BiPAP support and has been on room air ever since. The patient at the time my evaluation is in no acute distress wanting to go home I have explained the situation that due to COVID-19 testing she needs to remain in the hospital until this is confirmed negative. The patient denies any fever no pleurisy no nausea vomiting no diarrhea and the patient unfortunately soiled herself prior to my encounter, neurologically she does not have any deficits and is hoping to be discharged soon. Plan of care has been explained in detail no other concerns were voiced by the patient during my visit Past Medical History Past Medical History: Anemia, Arthritis, Diabetes-Type II, Fibromyalgia Additional Past Medical Histor: abd hernia's, chrons Past Surgical History: Appendectomy, Hysterectomy, Other Additional Past Surgical Histo: mult colon sx's, lumbar disc sx, Smoking Status: Current Every Day Smoker Alcohol Use: None General Adult General Adult EDM: Chief Complaint: DYSPNEA/RESPIRATOY DISTRESS Vitals Vitals Vital Signs Date Time Temp Pulse Resp B/P (MAP) Pulse Ox O2 Delivery O2 Flow Rate FiO2 10/27/19 10:08 102 109/48 10/27/19 07:15 98.9 20 92 Nasal Cannula 4.0 98.9 Physical Exam Physical Exam Physical Exam GEN.: No apparent distress. Alert and oriented. HEENT: Head is normocephalic, atraumatic NECK: Supple. LUNGS: Clear to auscultation. HEART: RRR, S1, S2 present. Peripheral pulses intact ABDOMEN: Soft, nontender. Positive bowel sounds. EXTREMITIES: Without any cyanosis. NEUROLOGIC: Normal speech, normal tone PSYCHIATRIC: Normal affect, normal mood. SKIN: No ulcerations General: Alert, Oriented X3, Cooperative, No acute distress Extremities: No clubbing, No cyanosis Skin: No significant lesion Labs LABS INDICATION: Reason: chronic abd pain, Crohn's, anemia, hernias-PT STATES PAIN STIMULATOR / Spl. Instructions: / History: TECHNIQUE: Multi-detector row CT images were acquired from the lung bases through the abdomen and pelvis without the use of IV contrast. Sagittal and coronal images were acquired from the transaxial data. All CT scans performed at this facility utilize dose optimization techniques as appropriate to the exam, including the following: Automated exposure control and adjustment of the mA and/or KV according to patient size (this includes techniques or standardized protocols for targeted exams where dose is indication/reason for exam). ORAL CONTRAST: None COMPARISON: CT abdomen and pelvis without IV contrast of 07/09/2011 FINDINGS: The absence of IV contrast limits evaluation of soft tissue pathology. LOWER CHEST: Small left pleural effusion and associated left basilar atelectasis. Mild diffuse bilateral interlobular septal thickening and groundglass attenuation in the lingula and in the lateral basal segment right lower lobe. LIVER: Unremarkable BILIARY SYSTEM: Gallbladder is distended to 4.4 cm but shows no pericholecystic soft tissue stranding or CT evidence of wall thickening or calcified gallstones.. Bile ducts are not dilated. PANCREAS: Unremarkable SPLEEN: Unremarkable ADRENALS: Unremarkable KIDNEYS & URETERS: Unremarkable BLADDER: Unremarkable REPRODUCTIVE ORGANS: Unremarkable GASTROINTESTINAL: Postoperative changes from distal ileal and cecal surgical resection with primary anastomosis. There is soft tissue stranding in mesentery of the distal small bowel loops that show focal wall thickening near the anastomosis. No fluid-filled distended and shows for obstruction. Incidental postsurgical changes from previous sigmoid colonic partial resection. No evidence of recurrent inflammation at the site of anastomosis. There is diffuse spasm of the descending colon and rectosigmoid colon. Soft tissue stranding. Appendix is surgically absent. MESENTERY/PERITONEUM/RETROPERITONEUM: Unremarkable VASCULAR: Scattered arterial calcifications. LYMPH NODES: No adenopathy OSSEOUS & SOFT TISSUES: L5-S1 interbody prosthesis and interspinous prosthesis at L2-L3, L3-L4 and L4-L5 are redemonstrated. Addition, a spinal stimulator generator in the left lower back subtle cutaneous soft tissues is present with leads entering the spinal canal from the left at the T12-L1 level and extending up the lower thoracic spinal Canal the on the included field of view. No acute fracture or aggressive appearing osseous lesions. Multilevel lumbar spinal degenerative spondylosis, most notably at L4-L5 and at L2-L3. Evidence of previous ventral hernia mesh repair. IMPRESSION: Evidence of previous bowel surgery at the rectosigmoid junction and at the terminal ileum near the ileocecal junction with acute inflammatory changes evident in the mesentery in the right lower quadrant abdomen, suspicious for recurrent terminal ileitis. No evidence of bowel obstruction, perforation or abscess formation. Electronically signed by: Leah Shen MD (07/14/2019 6:48 PM) [facility] [place] DICTATED and SIGNED BY: LEAH SHEN MD DATE: 07/14/19 1848 EXAM: AP View of the chest DATE: 10/25/2019 6:41 PM INDICATION: Shortness of breath COMPARISON: No Prior FINDINGS: The heart is not enlarged. Aorta is tortuous with atherosclerotic calcifications. Small left pleural effusion. Left infrahilar lung base airspace opacities. No pneumothorax. IMPRESSION: Left infrahilar and lung base opacities favored to represent consolidative process such as pneumonia although atelectasis could also have this appearance. Small left pleural effusion. No pneumothorax. Electronically signed by: Sudheer De La Cruz MD (10/25/2019 8:23 PM) [facility] DICTATED and SIGNED BY: SUDHEER DE LA RCUZ MD DATE: 10/25/192022 Laboratory Tests Test 10/26/19 12:41 10/26/19 17:33 10/26/19 20:59 10/27/19 07:24 Glucose (Fingerstick) 251 mg/dL (70-99) 282 mg/dL (70-99) 261 mg/dL (70-99) 160 mg/dL (70-99) Test 10/27/19 10:22 Glucose (Fingerstick) 152 mg/dL (70-99) Assessment and Plan Assessmemt and Plan Problems Medical Problems: (1) Lactic acidemia Status: Acute (2) Pneumonia Status: Acute (3) Sepsis Status: Acute (4) Suspected COVID-19 virus infection Status: Acute DPOA REVIEW 17 MIN What Is a Power of Locomotive Lubricating Systems Clerk? A power of economic manager (POA) is a legal document giving one person (the agent or gqrlvyjo-[id number]-ubzo) the power to act for another person (the principal). The agent can have broad legal authority or limited authority to make legal decisions about the principal's property, finances or medical care. The power of economic manager is frequently used in the event of a principal's illness or disability, or when the principal can't be present to sign necessary legal documents for financial transactions. A power of economic manager can end for a number of reasons, such as when the principal dies, the principal revokes it, a court invalidates it, the principal divorces their spouse, who happens to be the agent, or the agent can no longer carry out the outlined responsibilities. Conventional POAs lapse when the creator becomes incapacitated, but a durable POA remains in force to enable the agent to manage the creators affairs, and a springing POA comes into effect only if and when the creator of the POA becomes incapacitated. A medical or healthcare POA enables an agent to make medical decisions on behalf of an incapacitated person. [employer] Takeaways A power of economic manager (POA) is a legal document giving one person, the agent or [id number] the power to act for another person, the principal. The agent can have broad legal authority or limited authority to make decisions about the principal's property, finances or medical care. The power of economic manager is often used when a principal becomes ill or disabled, or when they can't be present to sign necessary legal documents for financial transactions. Understanding Power of Locomotive Lubricating Systems Clerk A power of economic manager should be considered when planning for long-term care. There are different types of POAs that fall under either a general power of economic manager or limited power of economic manager. A general power of economic manager acts on behalf of the principal in any and all matters, as allowed by the state. The agent under a general POA agreement may be authorized to take care of issues such as handling bank accounts, signing checks, selling property and assets like stocks, f A limited power of economic manager gives the agent the power to act on behalf of the principal in specific matters or events. For example, the limited POA may explicitly state that the agent is only allowed to manage the principal's shelter accounts. A limited POA may also be limited to a specific period of time (e.g., if the principal will be out of the country for, say, two years). Most greer of economic manager documents allow an agent to represent the principal in all property and financial matters as long as the principals mental state of mind is good. If a situation occurs where the principal becomes incapable of making decisions for him or herself, the POA agreement would automatically end. However, someone who wants the POA to remain in effect after the persons health deteriorates would need to sign a durable power of economic manager (DPOA). Important:A person appointed as power of economic manager is not necessarily an economic manager. The person could just be a trusted family member, friend, or acquaintance. Understanding the Durable Power of Locomotive Lubricating Systems Clerk (DPOA) The durable power of economic manager (DPOA) remains in control of certain legal, property or financial matters specifically spelled out in the agreement, even after the principal becomes mentally incapacitated. While a DPOA can pay medical bills on behalf of the principal, the durable agent cannot make decisions related to the principal's health (e.g., taking the principal off life support is not up to a DPOA). The principal can sign a durable power of economic manager for health care, or healthcare power of economic manager (HCPA), if he wants an agent to have the power to make health-related decisions. This document also called a healthcare proxy, outlines the principals consent to give the agent POA privileges in the event of an unfortunate medical condition. The durable POA for healthcare is legally bound to oversee medical care decisions on behalf of the principal. Another type of DPOA is the durable power of economic manager for finances, or simply a financial power of economic manager. This document allows an agent to manage the business and financial affairs of the principal, such as signing checks, filing tax returns, mailing and depositing Social Security checks and managing investment accounts, in the event, the latter becomes unable to understand or make decisions. To the extent of what the agreement spells out as the agents responsibility, the agent has to carry out the principals wishes to the best of his ability. When the agent acts on behalf of the principal by making investment decisions through the cotton broker or medical decisions through the healthcare professional, both institutions would ask to see the DPOA. Although the DPOA for both medical and financial matters can be one document, it is good to have separate DPOA for healthcare and finances. Since the DPOA for healthcare will have the principal's personal medical information, it would be inappropriate for the cotton broker to have it, and the medical records assistant dont need to know the financial status of the patient either. conditions for which a durable POA may become active are set up in a document called the springing power of economic manager. The springing POA defines the kind of event or level of incapacitation that should occur before the DPOA springs into effect. A power of economic manager can remain dormant until a negative health occurrence activates it to a DPOA. How Power of Locomotive Lubricating Systems Clerk Works You can buy or download a power of economic manager template. If you do, be sure it is for your state, as requirements differ. However, this document may be too important to leave to the chance that you got the correct form and handled it properly. A better way to start the process of establishing a power of economic manager is by locating an economic manager who specializes in family law in your state. If economic manager's fees are more than you can afford, legal services offices staffed with credentialed attorneys exist in virtually every part of the [place]. Visit the [employer] website, which has a "Find Senior Physical Therapist" search function. Clients who qualify will receive pro abdirashid (cost-free) assistance Many states require that the signature of the principal (the person who initiates the POA) be notarized. Some states also require that witnesses' signatures be notarized. The following provisos apply generally, nationwide, and everyone who needs to create a POA should be aware of them: There is no standard POA form for all [address] [place] [address]; state law and procedures vary All states accept some version of the durable power of economic manager A few drummond greer cannot be delegated. These include the authority to do the following: Make, amend, or revoke a will Contract a marriage in most states, although a handful of states allow it Vote (but the guardian may request a ballot on behalf of the principal) While the details may differ, the following rules apply coast to coast: Put It in Writing While some regions of the country accept oral POA grants, verbal instruction is not a reliable substitute for getting each of the greer of economic manager granted to your agent spelled out [id number] on paper. Written clarity helps to avoid arguments and confusion. Use the Proper Format Many variations of power of economic manager forms exist. Some POAs are short-lived; others are meant to last until . Decide what greer you wish to jerome and prepare a POA specific to that desire. The POA must also satisfy the requirements of your state. To find a form that will be accepted by a court of law in the state in which you live, perform an internet search, check with an office-supply store or ask a local estate-planning professional to help you. The best option is to use an economic manager. Identify the Parties The term for the person granting the POA is the "principal." The individual who receives the power of economic manager is called either the "agent" or the "ufslkbon-nr-iaqw." Check whether your state requires that you use specific terminology. Delegate the Greer A POA can be as broad or as limited as the principal wishes. However, each of the greer granted must be clear, even if the principal grants the agent "general power of economic manager." In other words, the principal cannot jerome sweeping authority such as, I delegate all things having to do with my life. Specify Durability In most states, a power of economic manager terminates if the principal is incapacitated. If this happens, the only way an agent can keep his or her greer is if the POA was written with an indication that it is "durable," a designation that makes it last for the principal's lifetime unless the principal revokes it. Comment Review of Relevant I have reviewed the following items lorie (where applicable) has been applied. Labs Laboratory Tests Test 10/25/19 18:41 10/25/19 18:42 10/25/19 21:02 10/26/19 03:00 O2 Saturation 90 % (92-99) Arterial Blood pH 7.50 (7.35-7.45) Arterial Blood pCO2 at Patient Temp 35 mmHg (35-46) Arterial Blood pO2 at Patient Temp 59 mmHg (65-108) Arterial Blood HCO3 27 mmol/L (21-28) Arterial Blood Base Excess 4 mmol/L (-3-3) FiO2 100 White Blood Count 28.2 x10^3/uL (4.0-11.0) 18.4 x10^3/uL (4.0-11.0) Red Blood Count 5.67 x10^6/uL (3.50-5.40) 5.01 x10^6/uL (3.50-5.40) Hemoglobin 8.7 g/dL (12.0-15.5) 7.7 g/dL (12.0-15.5) Hematocrit 31.5 % (36.0-47.0) 27.8 % (36.0-47.0) Mean Corpuscular Volume 56 fL (79-100) 56 fL (79-100) Mean Corpuscular Hemoglobin 15 pg (25-35) 15 pg (25-35) Mean Corpuscular Hemoglobin Concent 27 g/dL (31-37) 28 g/dL (31-37) Red Cell Distribution Width 22.1 % (11.5-14.5) 22.0 % (11.5-14.5) Platelet Count 241 x10^3/uL (140-400) 218 x10^3/uL (140-400) Neutrophils (%) (Auto) 67 % (31-73) 73 % (31-73) Lymphocytes (%) (Auto) 24 % (24-48) 17 % (24-48) Monocytes (%) (Auto) 7 % (0-9) 9 % (0-9) Eosinophils (%) (Auto) 1 % (0-3) 1 % (0-3) Basophils (%) (Auto) 1 % (0-3) 1 % (0-3) Neutrophils # (Auto) 18.8 x10^3/uL (1.8-7.7) 13.4 x10^3/uL (1.8-7.7) Lymphocytes # (Auto) 6.8 x10^3/uL (1.0-4.8) 3.1 x10^3/uL (1.0-4.8) Monocytes # (Auto) 2.0 x10^3/uL (0.0-1.1) 1.6 x10^3/uL (0.0-1.1) Eosinophils # (Auto) 0.3 x10^3/uL (0.0-0.7) 0.1 x10^3/uL (0.0-0.7) Basophils # (Auto) 0.3 x10^3/uL (0.0-0.2) 0.2 x10^3/uL (0.0-0.2) Segmented Neutrophils % 47 % (35-66) Band Neutrophils % 14 % (0-9) Lymphocytes % 31 % (24-48) Monocytes % 6 % (0-10) Eosinophils % 1 % (0-5) Basophils % 1 % (0-3) Platelet Estimate Adequate (ADEQUATE) Polychromasia Slight Hypochromasia Marked Poikilocytosis Slight Anisocytosis Mod Microcytosis Marked Sodium Level 137 mmol/L (136-145) 139 mmol/L (136-145) Potassium Level 3.1 mmol/L (3.5-5.1) 3.0 mmol/L (3.5-5.1) Chloride Level 101 mmol/L (98-107) 103 mmol/L (98-107) Carbon Dioxide Level 27 mmol/L (21-32) 28 mmol/L (21-32) Anion Gap 9 (6-14) 8 (6-14) Blood Urea Nitrogen 13 mg/dL (7-20) 11 mg/dL (7-20) Creatinine 1.0 mg/dL (0.6-1.0) 1.0 mg/dL (0.6-1.0) Estimated GFR (Cockcroft-Gault) 54.3 54.3 BUN/Creatinine Ratio 13 (6-20) Glucose Level 142 mg/dL (70-99) 235 mg/dL (70-99) Lactic Acid Level 2.7 mmol/L (0.4-2.0) 2.0 mmol/L (0.4-2.0) Calcium Level 8.8 mg/dL (8.5-10.1) 8.2 mg/dL (8.5-10.1) Total Bilirubin 0.6 mg/dL (0.2-1.0) Aspartate Amino Transf (AST/SGOT) 18 U/L (15-37) Alanine Aminotransferase (ALT/SGPT) 13 U/L (14-59) Alkaline Phosphatase 79 U/L (46-116) Troponin I Quantitative 0.032 ng/mL (0.000-0.055) MI-Asn-U-Type Natriuretic Peptide 935 pg/mL (0-124) Total Protein 5.7 g/dL (6.4-8.2) Albumin 2.9 g/dL (3.4-5.0) Albumin/Globulin Ratio 1.0 (1.0-1.7) Urine Collection Type U cath Urine Color Michelle Urine Clarity Clear Urine pH 6.5 (<5.0-8.0) Urine Specific [place] 1.020 (1.000-1.030) Urine Protein Negative mg/dL (NEG-TRACE) Urine Glucose (UA) Negative mg/dL (NEG) Urine Ketones (Stick) Negative mg/dL (NEG) Urine Blood Negative (NEG) Urine Nitrite Negative (NEG) Urine Bilirubin Small (NEG) Urine Urobilinogen Dipstick 1.0 mg/dL (0.2 mg/dL) Urine Leukocyte Esterase Negative (NEG) Urine RBC 0 /HPF (0-2) Urine WBC 0 /HPF (0-4) Urine Squamous Epithelial Cells Few /LPF Urine Bacteria 0 /HPF (0-FEW) Urine Mucus Slight /LPF Test 10/26/19 10:00 10/26/19 12:41 10/26/19 17:33 10/26/19 20:59 O2 Saturation 92 % (92-99) Arterial Blood pH 7.49 (7.35-7.45) Arterial Blood pCO2 at Patient Temp 36 mmHg (35-46) Arterial Blood pO2 at Patient Temp 71 mmHg (65-108) Arterial Blood HCO3 27 mmol/L (21-28) Arterial Blood Base Excess 3 mmol/L (-3-3) FiO2 40% Glucose (Fingerstick) 251 mg/dL (70-99) 282 mg/dL (70-99) 261 mg/dL (70-99) Test 10/27/19 07:24 10/27/19 10:22 Glucose (Fingerstick) 160 mg/dL (70-99) 152 mg/dL (70-99) Laboratory Tests Test 10/26/19 12:41 10/26/19 17:33 10/26/19 20:59 10/27/19 07:24 Glucose (Fingerstick) 251 mg/dL (70-99) 282 mg/dL (70-99) 261 mg/dL (70-99) 160 mg/dL (70-99) Test 10/27/19 10:22 Glucose (Fingerstick) 152 mg/dL (70-99) Microbiology 10/25/19 Blood Culture - Preliminary, Resulted NO GROWTH AFTER 1 DAY Medications Current Medications Vancomycin HCl 2 gm/Sodium Chloride 500 ml @ 250 mls/hr 1X ONCE IV Last administered on 10/25/19at 20:57; Start 10/25/19 at 21:00; Stop 10/25/19 at 22:59; Status DC Piperacillin Sod/ Tazobactam Sod 3.375 gm/Sodium Chloride 50 ml @ 100 mls/hr 1X ONCE IV Last administered on 10/25/19at 20:30; Start 10/25/19 at 20:30; Stop 10/25/19 at 20:59; Status DC Sodium Chloride 1,000 ml @ 1,000 mls/hr 1X ONCE IV Last administered on 10/25/19at 20:30; Start 10/25/19 at 20:30; Stop 10/25/19 at 21:29; Status DC Ondansetron HCl (Zofran) 4 mg PRN Q8HRS PRN IV NAUSEA/VOMITING; Start 10/25/19 at 21:00; Stop 10/26/19 at 20:59; Status DC Furosemide (Lasix) 40 mg 1X ONCE IVP Last administered on 10/25/19at 23:32; Start 10/25/19 at 23:30; Stop 10/25/19 at 23:31; Status DC Lorazepam (Ativan Inj) 0.5 mg PRN Q6HRS PRN IVP ANXIETY / AGITATION; Start 10/15 03/05 at 01:45 Vitamin D (Vitamin D3) 1,000 unit DAILY PO Last administered on 10/27/19at 10:07; Start 10/27/19 at 09:00 Duloxetine HCl (Cymbalta) 30 mg DAILY PO ; Start 10/26/19 at 12:00; Status Cancel Famotidine (Pepcid) 20 mg DAILY PO Last administered on 10/27/19at 10:07; Start 10/26/19 at 12:00 Gabapentin (Neurontin) 300 mg DAILY PO ; Start 10/26/19 at 12:00; Status Cancel Glimepiride (Amaryl) 2 mg DAILY PO Last administered on 10/27/19at 10:08; Start 10/26/19 at 12:00 Insulin Glargine (Lantus Syringe) 65 unit HS SQ Last administered on 10/26/19at 23:29; Start 10/26/19 at 21:00 Ketoconazole (Nizoral 2% Shampoo) 1 ingrid PRN DAILY PRN TP SEE COMMENTS; Start 10/26/19 at 10:30 Levothyroxine Sodium (Synthroid) 125 mcg DAILYAC PO Last administered on 10/27/19at 10:07; Start 10/27/19 at 07:30 Lisinopril (Prinivil) 5 mg DAILY PO Last administered on 10/27/19at 10:08; Start 10/27/19 at 09:00 Metoprolol Tartrate (Lopressor) 25 mg BID PO Last administered on 10/27/19at 10:08; Start 10/26/19 at 21:00 Montelukast Sodium (Singulair) 10 mg HS PO Last administered on 10/26/19at 23:26; Start 10/26/19 at 21:00 Pantoprazole Sodium (Protonix) 40 mg DAILYAC PO Last administered on 10/27/19at 10:07; Start 10/27/19 at 07:30 Pregabalin (Lyrica) 150 mg TID PO Last administered on 10/27/19at 09:00; Start 10/26/19 at 14:00 Quetiapine Fumarate (SEROquel) 100 mg QHS PO Last administered on 10/26/19 23:26; Start 10/26/19 at 21:00 Simvastatin (Zocor) 20 mg QHS PO Last administered on 10/26/19at 23:26; Start 10/26/19 at 21:00 Sucralfate (Carafate) 1 gm QID PO Last administered on 10/27/19at 10:09; Start 10/26/19 at 13:00 Non-Formulary Medication (Escitalopram Oxalate ) 10 mg DAILY PO ; Start 10/27/19 at 09:00; Status UNV Insulin Human Lispro (HumaLOG) 25 units TIDWMEALS SQ ; Start 10/26/19 at 12:00 Sulfasalazine (Azulfidine) 500 mg TID PO Last administered on 10/27/19at 10:07; Start 10/26/19 at 14:00 Duloxetine HCl (Cymbalta) 60 mg BID PO Last administered on 10/27/19at 10:07; Start 10/26/19 at 12:00 Ondansetron HCl (Zofran) 4 mg PRN Q4HRS PRN IV NAUSEA/VOMITING; Start 10/26/19 at 13:45 Zolpidem Tartrate (Ambien) 5 mg PRN QHS PRN PO INSOMNIA Last administered on 10/26/19at 23:26; Start 10/26/19 at 13:45 Acetaminophen (Tylenol) 650 mg PRN Q4HRS PRN PO TEMP OVER 100.4F OR MILD PAIN; Start 10/26/19 at 13:45 Diphenhydramine HCl (Benadryl) 25 mg PRN Q4HRS PRN IVP ITCHING; Start 10/26/19 at 13:45 Docusate Sodium (Colace) 100 mg PRN BID PRN PO HARD STOOLS; Start 10/26/19 at 13:45 Albuterol Sulfate (Ventolin Neb Soln) 2.5 mg PRN Q4HRS PRN NEB SHORTNESS OF BREATH; Start 10/26/19 at 13:45 Guaifenesin (Robitussin) 200 mg PRN Q4HRS PRN PO COUGH; Start 10/26/19 at 13:45 Lorazepam (Ativan) 0.5 mg PRN Q4HRS PRN PO ANXIETY / AGITATION; Start 10/26/19 at 13:45 Enoxaparin Sodium (Lovenox 40mg Syringe) 40 mg Q24H SQ Last administered on 10/26/19at 15:54; Start 10/26/19 at 16:00 Potassium Chloride (Klor-Con) 40 meq Q2H PO Last administered on 10/26/19at 17:29; Start 10/26/19 at 15:00; Stop 10/26/19 at 17:01; Status DC Furosemide (Lasix) 40 mg 1X ONCE IVP Last administered on 10/26/19at 15:53; Start 10/26/19 at 15:00; Stop 10/26/19 at 15:01; Status DC Active Scripts Active Pantoprazole Sodium (Pantoprazole Sodium) 40 Mg Tablet.dr 40 Mg PO DAILYAC 30 Days Ketoconazole 120 Ml Shampoo 1 Ingrid TP PRN DAILY PRN 30 Days Reported Sulfazine Ec (Sulfasalazine) 500 Mg Tablet.dr 500 Mg PO TID Singulair Tablet (Montelukast Sodium) 10 Mg Tablet 10 Mg PO HS Sucralfate 1 Gm Tablet 1 Gm PO AC AND HS Lyrica (Pregabalin) 50 Mg Capsule 50 Mg PO TID Famotidine 20 Mg Tablet 20 Mg PO BID Metoprolol Tartrate 25 Mg Tablet 25 Mg PO BID Lantus (Insulin Glargine,Hum.rec.anlog) 100 Unit/1 Ml Vial 65 Unit SQ HS Novolog (Insulin Aspart) 100 Unit/1 Ml Vial 25 Unit SQ TIDWMEALS Levothyroxine Sodium 125 Mcg Tablet 125 Mcg PO DAILYAC Glimepiride 2 Mg Tablet 2 Mg PO Lisinopril 5 Mg Tablet 5 Mg PO DAILY Gabapentin (Gabapentin) 300 Mg Capsule 300 Mg PO Escitalopram Oxalate 10 Mg Tablet 10 Mg PO DAILY Vitamin C (Ascorbic Acid) 100 Mg Tablet 100 Mg PO Vitamin D (Cholecalciferol (Vitamin D3)) 1,000 Unit Tablet 1,000 Unit PO Fosamax (Alendronate Sodium) 70 Mg Tablet 70 Mg PO Seroquel (Quetiapine Fumarate) 100 Mg Tablet 100 Mg PO Simvastatin 20 Mg Tablet 20 Mg PO DAILY Cymbalta (Duloxetine Hcl) 30 Mg Capsule.dr 30 Mg PO Vitals/I & O Vital Sign - Last 24 Hours 10/26/19 10/26/19 10/26/19 10/26/19 12:00 12:00 16:00 19:00 Temp 98.7 98.4 97.7 98.7 98.4 97.7 Pulse 110 108 117 Resp 24 24 21 B/P (MAP) 123/47 (72) 119/46 (70) 95/55 (68) Pulse Ox 94 90 97 O2 Delivery Venturi Mask Nasal Cannula Nasal Cannula Nasal Cannula O2 Flow Rate 4.0 4.0 4.0 10/26/19 10/26/19 10/26/19 10/26/19 19:58 20:00 23:18 23:27 Temp 98.5 98.0 98.5 98.0 Pulse 108 108 Resp 16 B/P (MAP) 112/46 (68) 112/46 Pulse Ox 91 O2 Delivery Nasal Cannula Nasal Cannula O2 Flow Rate 4.0 4.0 10/27/19 10/27/19 10/27/19 10/27/19 03:58 07:15 10:08 10:08 Temp 97.0 98.9 97.0 98.9 Pulse 98 102 102 102 Resp 16 20 B/P (MAP) 117/52 (73) 109/48 (68) 109/48 109/48 Pulse Ox 91 92 O2 Delivery Nasal Cannula Nasal Cannula O2 Flow Rate 4.0 4.0 Intake and Output 10/26/19 10/26/19 10/27/19 15:00 23:00 07:00 Intake Total 50 ml 60 ml Output Total 900 ml 650 ml 1100 ml Balance -850 ml -650 ml -1040 ml Justicifation of Admission Dx: Justifications for Admission: Justification of Admission Dx: Yes Respiratory Failure: Severe Resp Distress DAVY ALEX MD Oct 27, 2019 10:26
[2019-10-27 11:21] VITALS: BP 132/80
[2019-10-27] MEDS ORDERED: POTA20TA4 PO (12:39)
[2019-10-27] MEDS ORDERED: Magic Mouth Wash PO (12:39)
[2019-10-27] MEDS ORDERED: LIDO40SO MM (12:39)
[2019-10-27] MEDS ORDERED: DULO60CA45 PO (12:39)
[2019-10-27] MEDS ORDERED: ATOR80TA72 PO (12:39)
[2019-10-27] MEDS ORDERED: LEVO50TA5 PO (12:39)
[2019-10-27] MEDS ORDERED: FURO20TA3 PO (12:39)
[2019-10-27] MEDS ORDERED: INSU100V6 SQ (12:39)
[2019-10-27] MEDS ORDERED: MORP-15 PO (12:39)
[2019-10-27] MEDS ORDERED: METO-239 PO (12:39)
[2019-10-27] MEDS ORDERED: TAPE100T7 PO (12:39)
[2019-10-27] MEDS ORDERED: TRAZ150T49 PO (12:39)
[2019-10-27] MEDS ORDERED: PRED-220 PO (12:39)
[2019-10-27] MEDS: PIPERACILLIN/TAZOBACTAM 3.375 GM in IV NORMAL SALINE 50ML 50 ML IV SCH ×2 (13:06→17:59)
[2019-10-27] MEDS: LIDO:MAALOX:BENADRYL 1:1:1 180 ML BOTTLE. PO SCH ×5 (13:45→22:22)
[2019-10-27 15:15] VITALS: BP 128/72
[2019-10-27] MEDS: ENOXAPARIN 40 MG/0.4 ML SYRINGE. SQ SCH (16:34)
[2019-10-27 19:00] VITALS: BP 102/43
[2019-10-27] MEDS ORDERED: TAPENTADOL HCL PO SCH (21:00)
[2019-10-27] MEDS: traZODone 50 MG TABLET. PO SCH (22:19)
[2019-10-27] MEDS: ATORVASTATIN CALCIUM 40 MG TABLET. PO SCH (22:20)
[2019-10-27] MEDS: MORPHINE ER 15 MG TABLET.ER PO SCH (22:20)
[2019-10-27] MEDS: predniSONE 10 MG TABLET PO SCH (22:21)
[2019-10-27] MEDS: INSULIN GLARGINE SYRINGE. SQ SCH (22:22)
[2019-10-27 23:00] VITALS: BP 139/56
[2019-10-28] MEDS: PIPERACILLIN/TAZOBACTAM 3.375 GM in IV NORMAL SALINE 50ML 50 ML IV SCH ×6 (00:22→23:19)
[2019-10-28] MEDS: LIDO:MAALOX:BENADRYL 1:1:1 180 ML BOTTLE. PO SCH ×13 (00:22→23:22)
[2019-10-28 04:25] VITALS: BP 110/49
[2019-10-28] MEDS: LEVOTHYROXINE 50 MCG TABLET PO SCH (06:04)
[2019-10-28 07:18] VITALS: BP 125/67
[2019-10-28] MEDS: INSULIN LISPRO 300 UNITS/3 ML VIAL. SQ SCH ×4 (08:00→21:00)
--- NOTE | 2019-10-28 08:17 | PDOC ---
PROGRESS NOTES Date of Service: DATE: 10/28/19 TIME: 08:17 Chief Complaint Chief Complaint VTE Prophylaxis Ordered VTE Prophylaxis Devices: No VTE Pharmacological Prophylaxi: Yes impression Assessment/Plan diabetes Acute hypoxemic respiratory failure Left infrahilar and lung base opacities favored to represent consolidative process such as pneumonia although atelectasis could also have this appearance No significant change in bilateral lower lobe infiltrate superimposed on diffuse increased interstitial opacity. H/o Crohn's disease w/ chronic diarrhea and abdominal pain - not on oral meds DM2 - COPD - on chronic 2L NCO2, nebs prn Smoker - counseled on nicotine cessation. She says she like it and will never quit. GERD - Cont PPI OA - with Chronic pain diagnosed with fibromyalgia, however is on opioids for treatment Seborrheic dermatitis of scalp History of GERD Plan: transfer to 6 floor Await for COVID-19 testing Patient may be discharged once COVID-19 testing confirmed negative if ok with pulm Resume home medications Further recommendations based on the clinical course SS INSULIN COVID 19 SCREEN CONT IV ZOSYN pt/ot 37 min pt exam, chart review, > 50% of time spent with exam, chart review, pt care coordination Justifications for Admission Justifications for Admission Other Justification History of Present Illness History of Present Illness History of Present Illness History of Present Illness Patient is a 74-year-old female with past medical history of Crohn's disease d iabetes mellitus type 2 fibromyalgia who was in her usual state of health until the day of her admission when was noted by her family to be quite short of breath. The patient denies any fever no upper respiratory tract infection symptoms no cough sneezing no sinus pressure no headache no generalized malaise and no contacts with COVID-19 patients. The patient was brought by her family due to the respiratory issues and according to the ER department report and documentation the patient required BiPAP, they also tested for COVID-19 reason why she was transferred to the intensive care unit for further management. The patient once she got to the intensive care unit did not require BiPAP support and has been on room air ever since. The patient at the time my evaluation is in no acute distress wanting to go home I have explained the situation that due to COVID-19 testing she needs to remain in the hospital until this is confirmed negative. The patient denies any fever no pleurisy no nausea vomiting no diarrhea and the patient unfortunately soiled herself prior to my encounter, neurologically she does not have any deficits and is hoping to be discharged soon. Plan of care has been explained in detail no other concerns were voiced by the patient during my visit Past Medical History Past Medical History: Anemia, Arthritis, Diabetes-Type II, Fibromyalgia Additional Past Medical Histor: abd hernia's, chrons Past Surgical History: Appendectomy, Hysterectomy, Other Additional Past Surgical Histo: mult colon sx's, lumbar disc sx, Smoking Status: Current Every Day Smoker Alcohol Use: None General Adult General Adult EDM: Chief Complaint: DYSPNEA/RESPIRATOY DISTRESS Vitals Vitals Vital Signs Date Time Temp Pulse Resp B/P (MAP) Pulse Ox O2 Delivery O2 Flow Rate FiO2 10/28/19 04:25 97.1 90 18 110/49 (69) 98 Nasal Cannula 4.0 97.1 Physical Exam Physical Exam Physical Exam GEN.: No apparent distress. Alert and oriented. HEENT: Head is normocephalic, atraumatic NECK: Supple. LUNGS: rare crackles HEART: RRR, S1, S2 present. Peripheral pulses intact ABDOMEN: Soft, nontender. Positive bowel sounds. EXTREMITIES: Without any cyanosis. NEUROLOGIC: Normal speech, normal tone PSYCHIATRIC: Normal affect, normal mood. SKIN: No ulcerations General: Alert, Oriented X3, Cooperative, No acute distress Heart: Regular rate Lungs: Crackles Extremities: No clubbing, No cyanosis Skin: No rashes, No significant lesion Labs LABS EXAM: Chest, 2 views. HISTORY: Infiltrate. COMPARISON: 10/25/2019 FINDINGS: 2 views of the chest are obtained. There has been no change in bilateral lower lobe interstitial infiltrate superimposed on diffuse increased interstitial opacity. No pleural effusion is seen. There is hyperinflation. There is a stable cardiac silhouette. There are dorsal column stimulator leads overlying the thoracic vertebral column. There are interspinous decompression device at the lower lumbar levels. IMPRESSION: No significant change in bilateral lower lobe infiltrate superimposed on diffuse increased interstitial opacity. Electronically signed by: Ashli Nichols MD (10/28/2019 9:56 AM) [id number] DICTATED and SIGNED BY: ASHLI NICHOLS MD DATE: 10/28/19 0956 Laboratory Tests Test 10/27/19 10:22 10/27/19 16:19 10/27/19 20:58 Glucose (Fingerstick) 152 mg/dL (70-99) 211 mg/dL (70-99) 197 mg/dL (70-99) Assessment and Plan Assessmemt and Plan Problems Medical Problems: (1) Lactic acidemia Status: Acute (2) Pneumonia Status: Acute (3) Sepsis Status: Acute (4) Suspected COVID-19 virus infection Status: Acute Comment Review of Relevant I have reviewed the following items lorie (where applicable) has been applied. Labs Laboratory Tests Test 10/26/19 10:00 10/26/19 12:41 10/26/19 17:33 10/26/19 20:59 O2 Saturation 92 % (92-99) Arterial Blood pH 7.49 (7.35-7.45) Arterial Blood pCO2 at Patient Temp 36 mmHg (35-46) Arterial Blood pO2 at Patient Temp 71 mmHg (65-108) Arterial Blood HCO3 27 mmol/L (21-28) Arterial Blood Base Excess 3 mmol/L (-3-3) FiO2 40% Glucose (Fingerstick) 251 mg/dL (70-99) 282 mg/dL (70-99) 261 mg/dL (70-99) Test 10/27/19 07:24 10/27/19 10:22 10/27/19 16:19 10/27/19 20:58 Glucose (Fingerstick) 160 mg/dL (70-99) 152 mg/dL (70-99) 211 mg/dL (70-99) 197 mg/dL (70-99) Laboratory Tests Test 10/27/19 10:22 10/27/19 16:19 10/27/19 20:58 Glucose (Fingerstick) 152 mg/dL (70-99) 211 mg/dL (70-99) 197 mg/dL (70-99) Microbiology 10/25/19 Blood Culture - Preliminary, Resulted NO GROWTH AFTER 2 DAYS Medications Current Medications Vancomycin HCl 2 gm/Sodium Chloride 500 ml @ 250 mls/hr 1X ONCE IV Last administered on 10/25/19at 20:57; Start 10/25/19 at 21:00; Stop 10/25/19 at 22:59; Status DC Piperacillin Sod/ Tazobactam Sod 3.375 gm/Sodium Chloride 50 ml @ 100 mls/hr 1X ONCE IV Last administered on 10/25/19at 20:30; Start 10/25/19 at 20:30; Stop 10/25/19 at 20:59; Status DC Sodium Chloride 1,000 ml @ 1,000 mls/hr 1X ONCE IV Last administered on 10/25/19at 20:30; Start 10/25/19 at 20:30; Stop 10/25/19 at 21:29; Status DC Ondansetron HCl (Zofran) 4 mg PRN Q8HRS PRN IV NAUSEA/VOMITING; Start 10/25/19 at 21:00; Stop 10/26/19 at 20:59; Status DC Furosemide (Lasix) 40 mg 1X ONCE IVP Last administered on 10/25/19at 23:32; Start 10/25/19 at 23:30; Stop 10/25/19 at 23:31; Status DC Lorazepam (Ativan Inj) 0.5 mg PRN Q6HRS PRN IVP ANXIETY / AGITATION; Start at 01:45 Vitamin D (Vitamin D3) 1,000 unit DAILY PO Last administered on 10/27/19at 10:07; Start 10/27/19 at 09:00 Duloxetine HCl (Cymbalta) 30 mg DAILY PO ; Start 10/26/19 at 12:00; Status Cancel Famotidine (Pepcid) 20 mg DAILY PO Last administered on 10/27/19at 10:07; Start 10/26/19 at 12:00; Stop 10/27/19 at 12:57; Status DC Gabapentin (Neurontin) 300 mg DAILY PO ; Start 10/26/19 at 12:00; Status Cancel Glimepiride (Amaryl) 2 mg DAILY PO Last administered on 10/27/19at 10:08; Start 10/26/19 at 12:00; Stop 10/27/19 at 12:57; Status DC Insulin Glargine (Lantus Syringe) 65 unit HS SQ Last administered on 10/26/19at 23:29; Start 10/26/19 at 21:00; Stop 10/27/19 at 12:57; Status DC Ketoconazole (Nizoral 2% Shampoo) 1 wang PRN DAILY PRN TP SEE COMMENTS; Start 10/26/19 at 10:30; Stop 10/27/19 at 12:57; Status DC Levothyroxine Sodium (Synthroid) 125 mcg DAILYAC PO Last administered on 10/27/19at 10:07; Start 10/27/19 at 07:30; Stop 10/27/19 at 12:57; Status DC Lisinopril (Prinivil) 5 mg DAILY PO Last administered on 10/27/19at 10:08; Start 10/27/19 at 09:00; Stop 10/27/19 at 12:57; Status DC Metoprolol Tartrate (Lopressor) 25 mg BID PO Last administered on 10/27/19at 10:08; Start 10/26/19 at 21:00; Stop 10/27/19 at 12:57; Status DC Montelukast Sodium (Singulair) 10 mg HS PO Last administered on 10/26/19at 23:26; Start 10/26/19 at 21:00; Stop 10/27/19 at 12:57; Status DC Pantoprazole Sodium (Protonix) 40 mg DAILYAC PO Last administered on 10/27/19at 10:07; Start 10/27/19 at 07:30 Pregabalin (Lyrica) 150 mg TID PO Last administered on 10/27/19at 22:20; Start 10/26/19 at 14:00 Quetiapine Fumarate (SEROquel) 100 mg QHS PO Last administered on 10/26/19at 23:26; Start 10/26/19 at 21:00; Stop 10/27/19 at 12:57; Status DC Simvastatin (Zocor) 20 mg QHS PO Last administered on 10/26/19at 23:26; Start 10/26/19 at 21:00; Stop 10/27/19 at 12:57; Status DC Sucralfate (Carafate) 1 gm QID PO Last administered on 10/27/19at 22:21; Start 10/26/19 at 13:00 Non-Formulary Medication (Escitalopram Oxalate ) 10 mg DAILY PO ; Start 10/27/19 at 09:00; Status UNV Insulin Human Lispro (HumaLOG) 25 units TIDWMEALS SQ ; Start 10/26/19 at 12:00 Sulfasalazine (Azulfidine) 500 mg TID PO Last administered on 10/27/19at 10:07; Start 10/26/19 at 14:00; Stop 10/27/19 at 12:57; Status DC Duloxetine HCl (Cymbalta) 60 mg BID PO Last administered on 10/27/19at 22:18; Start 10/26/19 at 12:00 Ondansetron HCl (Zofran) 4 mg PRN Q4HRS PRN IV NAUSEA/VOMITING; Start 10/26/19 at 13:45 Zolpidem Tartrate (Ambien) 5 mg PRN QHS PRN PO INSOMNIA Last administered on 10/26/19at 23:26; Start 10/26/19 at 13:45 Acetaminophen (Tylenol) 650 mg PRN Q4HRS PRN PO TEMP OVER 100.4F OR MILD PAIN; Start 10/26/19 at 13:45 Diphenhydramine HCl (Benadryl) 25 mg PRN Q4HRS PRN IVP ITCHING; Start 10/26/19 at 13:45 Docusate Sodium (Colace) 100 mg PRN BID PRN PO HARD STOOLS; Start 10/26/19 at 13:45 Albuterol Sulfate (Ventolin Neb Soln) 2.5 mg PRN Q4HRS PRN NEB SHORTNESS OF BREATH; Start 10/26/19 at 13:45 Guaifenesin (Robitussin) 200 mg PRN Q4HRS PRN PO COUGH; Start 10/26/19 at 13:45 Lorazepam (Ativan) 0.5 mg PRN Q4HRS PRN PO ANXIETY / AGITATION; Start 10/26/19 at 13:45 Enoxaparin Sodium (Lovenox 40mg Syringe) 40 mg Q24H SQ Last administered on 10/27/19at 16:34; Start 10/26/19 at 16:00 Potassium Chloride (Klor-Con) 40 meq Q2H PO Last administered on 10/26/19at 17:29; Start 10/26/19 at 15:00; Stop 10/26/19 at 17:01; Status DC Furosemide (Lasix) 40 mg 1X ONCE IVP Last administered on 10/26/19at 15:53; Start 10/26/19 at 15:00; Stop 10/26/19 at 15:01; Status DC Piperacillin Sod/ Tazobactam Sod 3.375 gm/Sodium Chloride 50 ml @ 100 mls/hr Q6HRS IV Last administered on 10/28/19at 06:03; Start 10/27/19 at 12:00 Insulin Glargine (Lantus Syringe) 58 unit HS SQ Last administered on 10/27/19at 22:22; Start 10/27/19 at 21:00 Levothyroxine Sodium (Synthroid) 50 mcg DAILY06 PO Last administered on 10/28/19at 06:04; Start 10/28/19 at 06:00 Sulfasalazine (Azulfidine) 1,000 mg TID PO Last administered on 10/27/19at 22:19; Start 10/27/19 at 14:00 Furosemide (Lasix) 20 mg DAILY PO ; Start 10/28/19 at 09:00 Metoprolol Succinate (Toprol Xl) 25 mg DAILY PO ; Start 10/28/19 at 09:00 Morphine Sulfate (Ms Contin) 15 mg BID PO Last administered on 10/27/19at 22:20; Start 10/27/19 at 21:00 Potassium Chloride (Klor-Con) 20 meq DAILY PO ; Start 10/28/19 at 09:00 Prednisone (Prednisone) 10 mg BID PO Last administered on 10/27/19at 22:21; Start 10/27/19 at 21:00 Atorvastatin Calcium (Lipitor) 80 mg QHS PO Last administered on 10/27/19at 22:20; Start 10/27/19 at 21:00 Non-Formulary Medication (Tapentadol Hcl (Nucynta)) 1 tab BID PO ; Start 10/27/19 at 21:00; Status UNV Trazodone HCl (Desyrel) 150 mg QHS PO Last administered on 10/27/19at 22:19; Start 10/27/19 at 21:00 Multi-Ingredient Mouthwash/Gargle (Magic Mouthwash) 5 ml Q2H PO Last administered on 10/28/19at 06:03; Start 10/27/19 at 13:45 Active Scripts Active Pantoprazole Sodium (Pantoprazole Sodium) 40 Mg Tablet.dr 40 Mg PO DAILYAC 30 Days Reported Lidocaine Hcl 40 Mg/1 Ml Solution 40 Mg MM PRN Q1HR PRN [Magic Mouth Wash] 1 Tsp PO Q2HR Morphine Sulfate Er (Morphine Sulfate) 15 Mg Tablet.er 1 Tab PO BID Furosemide 20 Mg Tablet 1 Tab PO DAILY Prednisone (Prednisone) 10 Mg Tablet 1 Tab PO BID 5 Days Nucynta (Tapentadol Hcl) 100 Mg Tablet 1 Tab PO BID MDD 2 Tablet(s) 30 Days Trazodone Hcl 150 Mg Tablet 1 Tab PO QHS 30 Days Potassium Chloride (Potassium Chloride) 20 Meq Tablet.er 20 Meq PO DAILY Levothyroxine Sodium 50 Mcg Tablet 1 Tab PO DAILY Humalog (Insulin Lispro) 100 Unit/1 Ml Vial 25 Unit SQ TIDAC Duloxetine Hcl 60 Mg Capsule.dr 60 Mg PO BID Metoprolol Succinate ( Xl ) (Metoprolol Succinate) 25 Mg Tab.er.24h 1 Tab PO DAILY Atorvastatin Calcium 80 Mg Tablet 80 Mg PO QHS Sulfazine Ec (Sulfasalazine) 500 Mg Tablet.dr 2 Tab PO TID Sucralfate 1 Gm Tablet 1 Gm PO AC AND HS Lyrica (Pregabalin) 50 Mg Capsule 150 Mg PO TID Lantus (Insulin Glargine,Hum.rec.anlog) 100 Unit/1 Ml Vial 58 Unit SQ HS Vitals/I & O Vital Sign - Last 24 Hours 10/27/19 10/27/19 10/27/19 10/27/19 10:08 10:08 11:21 15:15 Temp 98.5 98.8 98.5 98.8 Pulse 102 102 83 92 Resp 22 B/P (MAP) 109/48 109/48 132/80 (97) 128/72 (90) Pulse Ox 97 95 O2 Delivery Nasal Cannula Nasal Cannula O2 Flow Rate 4.0 4.0 10/27/19 10/27/19 10/27/19 10/27/19 19:00 20:00 22:20 23:00 Temp 98.3 97.6 98.3 97.6 Pulse 95 98 Resp 20 19 21 B/P (MAP) 102/43 (62) 139/56 (83) Pulse Ox 94 92 O2 Delivery Room Air Nasal Cannula Nasal Cannula Nasal Cannula O2 Flow Rate 4.0 4.0 4.0 4.0 10/28/19 10/28/19 03:00 04:25 Temp 97.1 97.1 Pulse 90 Resp 18 B/P (MAP) 110/49 (69) Pulse Ox 98 O2 Delivery Nasal Cannula Nasal Cannula O2 Flow Rate 4.0 Intake and Output 10/27/19 10/27/19 10/28/19 14:59 22:59 06:59 Intake Total 700 ml 380 ml 120 ml Output Total 300 ml 675 ml Balance 700 ml 80 ml -555 ml Justicifation of Admission Dx: Justifications for Admission: Justification of Admission Dx: Yes Respiratory Failure: Severe Resp Distress DAVY ALEX MD Oct 28, 2019 08:17
[2019-10-28] MEDS: MORPHINE ER 15 MG TABLET.ER PO SCH ×2 (08:28→22:08)
[2019-10-28] MEDS: DULoxetine HCL 30 MG CAPSULE.DR PO SCH ×2 (08:28→22:08)
[2019-10-28] MEDS: CHOLECALCIFEROL (VITAMIN D3) 1,000 UNIT TABLET PO SCH (08:28)
[2019-10-28] MEDS: sulfaSALAzine 500 MG TABLET PO SCH ×3 (08:28→23:18)
[2019-10-28] MEDS: METOPROLOL SUCC 24HR ER 25 MG TAB.ER.24H. PO SCH (08:29)
[2019-10-28] MEDS: predniSONE 10 MG TABLET PO SCH ×2 (08:29→22:08)
[2019-10-28] MEDS: FUROSEMIDE 20 MG TABLET PO SCH (08:29)
[2019-10-28] MEDS: POTASSIUM CHLORIDE 20 MEQ TABLET.ER. PO SCH (08:30)
[2019-10-28] MEDS: PREGABALIN 75 MG CAPSULE PO SCH ×3 (08:30→22:09)
[2019-10-28] MEDS: PANTOPRAZOLE 40 MG TABLET.DR. PO SCH (08:30)
[2019-10-28] MEDS: SUCRALFATE 1 GM TABLET. PO SCH ×4 (08:30→22:09)
--- NOTE | 2019-10-28 09:18 | CONS ---
DATE OF CONSULTATION: 10/28/2019 I was asked to see this 74-year-old lady for acute on chronic respiratory failure. HISTORY OF PRESENT ILLNESS: She has episodes of confusion. She does not answer most of my questions. Most of the history was obtained from chart and nursing staff. She is on oxygen 2 or 4 liters per minute via nasal cannula. She continues to smoke per chart. She was brought to the Emergency Room via EMS for increased shortness of breath. She has had cough and shortness of breath. She also has had some chest discomfort. She is currently on oxygen 4 liters per minute via nasal cannula. She appears comfortable. PAST MEDICAL HISTORY: COPD, chronic respiratory failure, anemia, arthritis, diabetes mellitus, appendectomy, hysterectomy, and history of Crohn disease. ALLERGIES: No known drug allergies. MEDICATIONS: Currently, she is on KCl, Toprol-XL, Lasix, Synthroid, Lipitor, prednisone 10 b.i.d. MS Contin, sulfasalazine, Zosyn, Protonix, Lovenox, Lyrica, Ativan p.r.n. SOCIAL HISTORY: Positive for smoking, details are not known. FAMILY HISTORY: Hypertension per chart. REVIEW OF SYSTEMS: Unable to obtain. She does not answer my questions. PHYSICAL EXAMINATION: GENERAL: This is an elderly lady. VITAL SIGNS: Her O2 saturation on 4 liters of oxygen is 98%, respiratory rate 18, heart rate 90, blood pressure 110/49, temperature 97.9. HEENT: Normocephalic, atraumatic. NECK: Short. CARDIOVASCULAR: Regular rate and rhythm. CHEST: On chest inspection, there is no accessory muscle use. LUNGS: Diminished breath sounds. ABDOMEN: Soft. EXTREMITIES: There is no edema. LYMPHATICS: There is no lymphadenopathy. SKIN: Chronic changes. LABORATORY DATA: I reviewed the following lab data: WBC on admission 28.2, repeat on 10/26/2019 is 18.4, hemoglobin 8.7, platelets 241. Sodium 139, potassium 3, chloride 103, CO2 of 28, BUN 11, creatinine 1. Lactic acid on admission 2. BNP on admission 935. ABG: pH 7.49, pCO2 of 36, pO2 of 71 on 40% FiO2 on 10/26/2019. COVID-19 not detected. Chest x-ray shows left infrahilar lung base opacities. IMPRESSION: 1. Acute on chronic respiratory failure, multifactorial in etiology, including acute bronchitis versus pneumonia, rule out congestive heart failure, chronic obstructive pulmonary disease versus others. 2. Abnormal chest x-ray. 3. COVID-19 negative. 4. Leukocytosis. 5. Acute bronchitis versus pneumonia. 6. Crohn disease with anemia. 7. Chronic obstructive pulmonary disease. 8. Diabetes mellitus. PLAN AND RECOMMENDATIONS: 1. Titrate FiO2 to keep O2 saturation 92%. 2. Start bronchodilator. 3. Continue antibiotic. 4. Follow up cultures. 5. Repeat chest x-ray, PA and lateral. 6. Protonix for stress ulcer prophylaxis. 7. Lovenox for DVT prophylaxis. Monitor hemoglobin. 8. The findings and recommendations were discussed with RN. Thank you very much for allowing me to participate in care of this very nice lady. LESLY MASON M.D. DR: JANICE/ronnell JOB#: [id number] / [id number]
--- NOTE | 2019-10-28 10:00 | RAD ---
EXAM: Chest, 2 views. HISTORY: Infiltrate. COMPARISON: 10/25/2019 FINDINGS: 2 views of the chest are obtained. There has been no change in bilateral lower lobe interstitial infiltrate superimposed on diffuse increased interstitial opacity. No pleural effusion is seen. There is hyperinflation. There is a stable cardiac silhouette. There are dorsal column stimulator leads overlying the thoracic vertebral column. There are interspinous decompression device at the lower lumbar levels. IMPRESSION: No significant change in bilateral lower lobe infiltrate superimposed on diffuse increased interstitial opacity. Electronically signed by: Ashli Nichols MD (10/28/2019 9:56 AM) [id number]
[2019-10-28 11:50] VITALS: BP 139/49
[2019-10-28] MEDS: IPRATRPIUM/ALBUTEROL 0.5/2.5MG 3 ML NEBU. NEB SCH ×3 (12:03→19:43)
[2019-10-28 15:00] VITALS: BP 99/38
[2019-10-28] MEDS: ENOXAPARIN 40 MG/0.4 ML SYRINGE. SQ SCH (16:05)
[2019-10-28] MEDS ORDERED: DEXTROSE 50% 25 GM / 50ML DISP.SYRIN. IV PRN (18:00)
[2019-10-28 19:00] VITALS: BP 107/26
[2019-10-28] MEDS ORDERED: INSULIN LISPRO 300 UNITS/3 ML VIAL. SQ ONE (22:00)
[2019-10-28] MEDS: LACTOBACILLUS RHAMNOSUS GG 1 CAPSULE. PO SCH (22:08)
[2019-10-28] MEDS: ATORVASTATIN CALCIUM 40 MG TABLET. PO SCH (22:08)
[2019-10-28] MEDS: traZODone 50 MG TABLET. PO SCH (22:09)
[2019-10-28] MEDS: INSULIN GLARGINE SYRINGE. SQ SCH (22:14)
[2019-10-28] MEDS ORDERED: diphenhydrAMINE HCL 25 MG CAPSULE PO PRN (22:15)
[2019-10-28 23:00] VITALS: BP 114/39
[2019-10-29] MEDS: LIDO:MAALOX:BENADRYL 1:1:1 180 ML BOTTLE. PO SCH ×8 (01:45→15:45)
[2019-10-29 03:00] VITALS: BP 119/48
[2019-10-29] MEDS: PIPERACILLIN/TAZOBACTAM 3.375 GM in IV NORMAL SALINE 50ML 50 ML IV SCH ×2 (05:40→13:25)
[2019-10-29] MEDS: LEVOTHYROXINE 50 MCG TABLET PO SCH (05:41)
[2019-10-29 07:00] VITALS: BP 110/38
[2019-10-29] MEDS ORDERED: DIPHENHYDRAMINE/ZINC ACETATE 2%/0.1% TOPICAL CREAM 28GM TUBE. TP PRN (07:00)
[2019-10-29] MEDS ORDERED: diphenhydrAMINE HCL 25 MG CAPSULE PO PRN (07:00)
[2019-10-29] MEDS: IPRATRPIUM/ALBUTEROL 0.5/2.5MG 3 ML NEBU. NEB SCH ×2 (07:29→12:15)
[2019-10-29] MEDS: INSULIN LISPRO 300 UNITS/3 ML VIAL. SQ SCH ×4 (08:00→12:00)
[2019-10-29] MEDS: DULoxetine HCL 30 MG CAPSULE.DR PO SCH (09:21)
[2019-10-29] MEDS: LACTOBACILLUS RHAMNOSUS GG 1 CAPSULE. PO SCH (09:21)
[2019-10-29] MEDS: MORPHINE ER 15 MG TABLET.ER PO SCH (09:22)
[2019-10-29] MEDS: PREGABALIN 75 MG CAPSULE PO SCH ×2 (09:23→14:00)
[2019-10-29] MEDS: METOPROLOL SUCC 24HR ER 25 MG TAB.ER.24H. PO SCH (09:23)
[2019-10-29] MEDS: CHOLECALCIFEROL (VITAMIN D3) 1,000 UNIT TABLET PO SCH (09:23)
[2019-10-29] MEDS: sulfaSALAzine 500 MG TABLET PO SCH ×2 (09:24→14:00)
[2019-10-29] MEDS: POTASSIUM CHLORIDE 20 MEQ TABLET.ER. PO SCH (09:24)
[2019-10-29] MEDS: PANTOPRAZOLE 40 MG TABLET.DR. PO SCH (09:24)
[2019-10-29] MEDS: SUCRALFATE 1 GM TABLET. PO SCH ×2 (09:24→13:25)
[2019-10-29] MEDS: predniSONE 10 MG TABLET PO SCH (09:24)
[2019-10-29] MEDS: FUROSEMIDE 20 MG TABLET PO SCH (09:25)
--- NOTE | 2019-10-29 12:19 | PDOC ---
PULMONARY PROGRESS NOTES DATE: 10/29/19 TIME: 12:17 Subjective no soa Vitals Vital Signs Date Time Temp Pulse Resp B/P (MAP) Pulse Ox O2 Delivery O2 Flow Rate FiO2 10/29/19 09:23 94 110/38 10/29/19 09:22 Nasal Cannula 3.0 10/29/19 07:30 98 10/29/19 07:00 98.0 20 98.0 General: Alert, No acute distress Lungs: Clear Cardiovascular: S1 Abdomen: Soft Neuro Exam: Alert Extremities: No Edema Skin: Warm Labs Laboratory Tests Test 10/27/19 16:19 10/27/19 20:58 10/28/19 08:35 10/28/19 11:29 Glucose (Fingerstick) 211 mg/dL (70-99) 197 mg/dL (70-99) 216 mg/dL (70-99) 366 mg/dL (70-99) Test 10/28/19 17:10 10/28/19 21:28 10/29/19 07:51 Glucose Level 627 mg/dL (70-99) Glucose (Fingerstick) 455 mg/dL (70-99) 273 mg/dL (70-99) Laboratory Tests Test 10/28/19 17:10 10/28/19 21:28 10/29/19 07:51 Glucose Level 627 mg/dL (70-99) Glucose (Fingerstick) 455 mg/dL (70-99) 273 mg/dL (70-99) Medications Active Scripts Medications Dose Route/Sig Max Daily Dose Days Date Category Lidocaine Hcl 40 Mg/1 Ml Solution 40 Mg MM PRN Q1HR PRN 10/27/19 Reported [Magic Mouth Wash] 1 Tsp PO Q2HR 10/27/19 Reported Morphine Sulfate Er (Morphine Sulfate) 15 Mg Tablet.er 1 Tab PO BID 10/27/19 Reported Furosemide 20 Mg Tablet 1 Tab PO DAILY 10/27/19 Reported Prednisone (Prednisone) 10 Mg Tablet 1 Tab PO BID 5 10/27/19 Reported Nucynta (Tapentadol Hcl) 100 Mg Tablet 1 Tab PO BID MDD 2 Tablet(s) 30 10/27/19 Reported Trazodone Hcl 150 Mg Tablet 1 Tab PO QHS 30 10/27/19 Reported Potassium Chloride (Potassium Chloride) 20 Meq Tablet.er 20 Meq PO DAILY 10/27/19 Reported Levothyroxine Sodium 50 Mcg Tablet 1 Tab PO DAILY 10/27/19 Reported Humalog (Insulin Lispro) 100 Unit/1 Ml Vial 25 Unit SQ TIDAC 10/27/19 Reported Duloxetine Hcl 60 Mg Capsule.dr 60 Mg PO BID 10/27/19 Reported Metoprolol Succinate ( Xl ) (Metoprolol Succinate) 25 Mg Tab.er.24h 1 Tab PO DAILY 10/27/19 Reported Atorvastatin Calcium 80 Mg Tablet 80 Mg PO QHS 10/27/19 Reported Sulfazine Ec (Sulfasalazine) 500 Mg Tablet.dr 2 Tab PO TID 08/03/19 Reported Sucralfate 1 Gm Tablet 1 Gm PO AC AND HS 08/03/19 Reported Lyrica (Pregabalin) 50 Mg Capsule 150 Mg PO TID 08/03/19 Reported Pantoprazole Sodium (Pantoprazole Sodium) 40 Mg Tablet.dr 40 Mg PO DAILYAC 30 07/14/19 Rx Lantus (Insulin Glargine,Hum.rec.anlog) 100 Unit/1 Ml Vial 58 Unit SQ HS 07/11/13 Reported Impression . 1. Acute on chronic respiratory failure, multifactorial in etiology, including acute bronchitis versus LLL pneumonia, less likely congestive heart failure, chronic obstructive pulmonary disease 2. Abnormal chest x-ray. 3. COVID-19 negative. 4. Leukocytosis. 5. Acute bronchitis versus pneumonia. 6. Crohn disease with anemia. 7. Chronic obstructive pulmonary disease. 8. Diabetes mellitus. Plan . 1. Titrate FiO2 to keep O2 saturation 92%. 2. bronchodilator. 3. Continue antibiotic. 4. Follow up cultures. 5. Repeat chest x-ray, PA and lateral. 6. Protonix for stress ulcer prophylaxis. 7. Lovenox for DVT prophylaxis. Monitor hemoglobin. 8. The findings and recommendations were discussed with ANI. COREY ARMENDARIZ MD Oct 29, 2019 12:19
--- NOTE | 2019-10-29 12:35 | NUR ---
SW following. Reviewed chart and spoke with RN. Pt from home with . Pt on 3l 02, ADA diet, and IV Zosyn. Spoke with pt who plans to return home with spouse and has home 02. Pt would like HH from [facility] at discharge. Patient choice of vendor form completed. Pt will discharge home today with HH orders and on oral medications per Dr. Skelton. TALIB printed packet of clinicals and provided to Brittney from [facility]. SW awaiting final discharge orders. SW did confirm pt's phone number and address. pt's phone number is [phone] and her spouse can be reached at [phone].
[2019-10-29 13:19] LABS: BASO # 0.1 x10^3/uL (0.0-0.2); BASO % 1 % (0-3); EOS # 0.2 x10^3/uL (0.0-0.7); EOS % 3 % (0-3); HEMATOCRIT 28.5 % (36.0-47.0); HEMOGLOBIN 7.9 g/dL (12.0-15.5); LYMPH # 2.2 x10^3/uL (1.0-4.8); LYMPH % 24 % (24-48); MEAN CORPUSCULAR HEMOGLOBIN 16 pg (25-35); MEAN CORPUSCULAR HGB CONC 28 g/dL (31-37); MEAN CORPUSCULAR VOLUME 56 fL (79-100); MONO # 0.7 x10^3/uL (0.0-1.1); MONO % 8 % (0-9); NEUT # 5.9 x10^3/uL (1.8-7.7); NEUT % 65 % (31-73); PLATELET COUNT 252 x10^3/uL (140-400); RED BLOOD COUNT 5.09 x10^6/uL (3.50-5.40); RED CELL DISTRIBUTION WIDTH 21.3 % (11.5-14.5); WHITE BLOOD COUNT 9.1 x10^3/uL (4.0-11.0)
[2019-10-29 13:23] LABS: CREATININE 0.9 mg/dL (0.6-1.0); GFR 61.4; POTASSIUM 4.1 mmol/L (3.5-5.1)
[2019-10-29 14:45] VITALS: BP 92/35
--- NOTE | 2019-10-29 15:55 | PDOC ---
[employer] PROGRESS NOTE Date of Service DOS: DATE: 10/29/19 TIME: 15:51 Chief Complaint Chief Complaint VTE Prophylaxis Ordered VTE Prophylaxis Devices: No VTE Pharmacological Prophylaxi: Yes impression Assessment/Plan diabetes Acute hypoxemic respiratory failure Left infrahilar and lung base opacities favored to represent consolidative process such as pneumonia although atelectasis could also have this appearance No significant change in bilateral lower lobe infiltrate superimposed on diffuse increased interstitial opacity. H/o Crohn's disease w/ chronic diarrhea and abdominal pain - not on oral meds DM2 - COPD - on chronic 2L NCO2, nebs prn Smoker - counseled on nicotine cessation. She says she like it and will never quit. GERD - Cont PPI OA - with Chronic pain diagnosed with fibromyalgia, however is on opioids for treatment Seborrheic dermatitis of scalp History of GERD Plan: Patient evaluated bedside. She denies any shortness of breath or chest pain. She is COVID negative. She is adamant about being able to discharge today. She has a history of recurrent pneumonia. Will treat with p.o. antibiotics and close PCP follow-up. Justifications for Admission Justifications for Admission Other Justification History of Present Illness History of Present Illness History of Present Illness History of Present Illness Patient is a 74-year-old female with past medical history of Crohn's disease diabetes mellitus type 2 fibromyalgia who was in her usual state of health until the day of her admission when was noted by her family to be quite short of breath. The patient denies any fever no upper respiratory tract infection symptoms no cough sneezing no sinus pressure no headache no generalized malaise and no contacts with COVID-19 patients. The patient was brought by her family due to the respiratory issues and according to the ER department report and documentation the patient required BiPAP, they also tested for COVID-19 reason why she was transferred to the intensive care unit for further management. The patient once she got to the intensive care unit did not require BiPAP support and has been on room air ever since. The patient at the time my evaluation is in no acute distress wanting to go home I have explained the situation that due to COVID-19 testing she needs to remain in the hospital until this is confirmed negative. The patient denies any fever no pleurisy no nausea vomiting no diarrhea and the patient unfortunately soiled herself prior to my encounter, magnus rologically she does not have any deficits and is hoping to be discharged soon. Plan of care has been explained in detail no other concerns were voiced by the patient during my visit Past Medical History Past Medical History: Anemia, Arthritis, Diabetes-Type II, Fibromyalgia Additional Past Medical Histor: abd hernia's, chrons Past Surgical History: Appendectomy, Hysterectomy, Other Additional Past Surgical Histo: mult colon sx's, lumbar disc sx, Smoking Status: Current Every Day Smoker Alcohol Use: None General Adult General Adult EDM: Chief Complaint: DYSPNEA/RESPIRATOY DISTRESS Vitals/I&O Vitals/I&O: Vital Signs Date Time Temp Pulse Resp B/P (MAP) Pulse Ox O2 Delivery O2 Flow Rate FiO2 10/29/19 14:45 98.1 95 20 92/35 (54) 94 Room Air 98.1 10/29/19 09:22 3.0 I & O 10/28/19 10/28/19 10/29/19 15:00 23:00 07:00 Intake Total 500 ml 450 ml 500 ml Output Total 500 ml 375 ml 2050 ml Balance 0 ml 75 ml -1550 ml Physical Exam Physical Exam: Physical Exam GEN.: No apparent distress. Alert and oriented. HEENT: Head is normocephalic, atraumatic NECK: Supple. LUNGS: rare crackles HEART: RRR, S1, S2 present. Peripheral pulses intact ABDOMEN: Soft, nontender. Positive bowel sounds. EXTREMITIES: Without any cyanosis. NEUROLOGIC: Normal speech, normal tone PSYCHIATRIC: Normal affect, normal mood. SKIN: No ulcerations General: Alert, Oriented X3, Cooperative, No acute distress Heart: Regular rate Lungs: Clear Extremities: No clubbing, No cyanosis Skin: No rashes, No significant lesion Labs Labs: Laboratory Tests Test 10/28/19 17:10 10/28/19 21:28 10/29/19 07:51 10/29/19 13:00 Glucose Level 627 mg/dL (70-99) 143 mg/dL (70-99) Glucose (Fingerstick) 455 mg/dL (70-99) 273 mg/dL (70-99) White Blood Count 9.1 x10^3/uL (4.0-11.0) Red Blood Count 5.09 x10^6/uL (3.50-5.40) Hemoglobin 7.9 g/dL (12.0-15.5) Hematocrit 28.5 % (36.0-47.0) Mean Corpuscular Volume 56 fL (79-100) Mean Corpuscular Hemoglobin 16 pg (25-35) Mean Corpuscular Hemoglobin Concent 28 g/dL (31-37) Red Cell Distribution Width 21.3 % (11.5-14.5) Platelet Count 252 x10^3/uL (140-400) Neutrophils (%) (Auto) 65 % (31-73) Lymphocytes (%) (Auto) 24 % (24-48) Monocytes (%) (Auto) 8 % (0-9) Eosinophils (%) (Auto) 3 % (0-3) Basophils (%) (Auto) 1 % (0-3) Neutrophils # (Auto) 5.9 x10^3/uL (1.8-7.7) Lymphocytes # (Auto) 2.2 x10^3/uL (1.0-4.8) Monocytes # (Auto) 0.7 x10^3/uL (0.0-1.1) Eosinophils # (Auto) 0.2 x10^3/uL (0.0-0.7) Basophils # (Auto) 0.1 x10^3/uL (0.0-0.2) Sodium Level 139 mmol/L (136-145) Potassium Level 4.1 mmol/L (3.5-5.1) Chloride Level 104 mmol/L (98-107) Carbon Dioxide Level 27 mmol/L (21-32) Anion Gap 8 (6-14) Blood Urea Nitrogen 12 mg/dL (7-20) Creatinine 0.9 mg/dL (0.6-1.0) Estimated GFR (Cockcroft-Gault) 61.4 Calcium Level 9.0 mg/dL (8.5-10.1) Test 10/29/19 13:05 Glucose (Fingerstick) 149 mg/dL (70-99) Assessment and Plan Assessmemt and Plan Problems Medical Problems: (1) Lactic acidemia Status: Acute (2) Pneumonia Status: Acute (3) Sepsis Status: Acute (4) Suspected COVID-19 virus infection Status: Acute Comment Review of Relevant I have reviewed the following items lorie (where applicable) has been applied. Medications: Current Medications Medications (Trade) Dose Ordered Sig/Nicolle Route PRN Reason Start Time Stop Time Status Last Admin Dose Admin Lactobacillus Rhamnosus (Culturelle) 1 cap BID PO 10/28/19 21:00 10/29/19 09:21 Insulin Human Lispro (HumaLOG) 7 units 1X ONCE SQ 10/28/19 22:00 10/28/19 22:01 DC 10/28/19 22:14 Diphenhydramine HCl (Benadryl) 25 mg PRN QHS PRN PO ITCHING 10/28/19 22:15 10/29/19 06:58 DC 10/28/19 23:18 Zinc Acetate/ Diphenhydramine (Benadryl Topical) 1 wang PRN Q6HRS PRN TP ITCHING 10/29/19 07:00 10/29/19 09:27 Justifications for Admission Other Justification ORIANA KAHN MD Oct 29, 2019 15:55
--- NOTE | 2019-10-29 16:00 | NUR ---
Pt is agitated and requesting to be discharged or she'll leave against medical advice. This RN at bedside to address pt concerns. Dr. Skelton paged and informed of situation and stated he would be putting discharge orders in. Pt encouraged to stay until discharge orders are placed as she would need antibiotics and home health. Pt does not want to wait any longer and is insistent on leaving without orders. Against medical advice paper reviewed and signed with pt and . Dr. Skelton notified of AMA status. Security on floor to walk pt down with this RN.
[2019-10-29] MEDS ORDERED: LEVO750T5 PO (16:01)
--- NOTE | 2019-10-29 17:46 | PDOC3 ---
Discharge Summary Visit Information Date of Admission: Oct 26, 2019 Date of Discharge: Oct 29, 2019 Final Diagnosis Problems Medical Problems: (1) Lactic acidemia Status: Acute (2) Pneumonia Status: Acute (3) Sepsis Status: Acute (4) Suspected COVID-19 virus infection Status: Acute Brief Hospital Course Allergies Allergies Coded Allergies Type Severity Reaction Last Updated Verified No Known Drug Allergies 08/03/19 No Vital Signs Vital Signs Date Time Temp Pulse Resp B/P (MAP) Pulse Ox O2 Delivery O2 Flow Rate FiO2 10/29/19 14:45 98.1 95 20 92/35 (54) 94 Room Air 98.1 10/29/19 09:22 3.0 Lab Results Laboratory Tests Test 10/27/19 20:58 10/28/19 08:35 10/28/19 11:29 10/28/19 17:10 Glucose (Fingerstick) 197 mg/dL (70-99) 216 mg/dL (70-99) 366 mg/dL (70-99) Glucose Level 627 mg/dL (70-99) Test 10/28/19 21:28 10/29/19 07:51 10/29/19 13:00 10/29/19 13:05 Glucose (Fingerstick) 455 mg/dL (70-99) 273 mg/dL (70-99) 149 mg/dL (70-99) White Blood Count 9.1 x10^3/uL (4.0-11.0) Red Blood Count 5.09 x10^6/uL (3.50-5.40) Hemoglobin 7.9 g/dL (12.0-15.5) Hematocrit 28.5 % (36.0-47.0) Mean Corpuscular Volume 56 fL (79-100) Mean Corpuscular Hemoglobin 16 pg (25-35) Mean Corpuscular Hemoglobin Concent 28 g/dL (31-37) Red Cell Distribution Width 21.3 % (11.5-14.5) Platelet Count 252 x10^3/uL (140-400) Neutrophils (%) (Auto) 65 % (31-73) Lymphocytes (%) (Auto) 24 % (24-48) Monocytes (%) (Auto) 8 % (0-9) Eosinophils (%) (Auto) 3 % (0-3) Basophils (%) (Auto) 1 % (0-3) Neutrophils # (Auto) 5.9 x10^3/uL (1.8-7.7) Lymphocytes # (Auto) 2.2 x10^3/uL (1.0-4.8) Monocytes # (Auto) 0.7 x10^3/uL (0.0-1.1) Eosinophils # (Auto) 0.2 x10^3/uL (0.0-0.7) Basophils # (Auto) 0.1 x10^3/uL (0.0-0.2) Sodium Level 139 mmol/L (136-145) Potassium Level 4.1 mmol/L (3.5-5.1) Chloride Level 104 mmol/L (98-107) Carbon Dioxide Level 27 mmol/L (21-32) Anion Gap 8 (6-14) Blood Urea Nitrogen 12 mg/dL (7-20) Creatinine 0.9 mg/dL (0.6-1.0) Estimated GFR (Cockcroft-Gault) 61.4 Glucose Level 143 mg/dL (70-99) Calcium Level 9.0 mg/dL (8.5-10.1) Laboratory Tests Test 10/28/19 21:28 10/29/19 07:51 10/29/19 13:00 10/29/19 13:05 Glucose (Fingerstick) 455 mg/dL (70-99) 273 mg/dL (70-99) 149 mg/dL (70-99) White Blood Count 9.1 x10^3/uL (4.0-11.0) Red Blood Count 5.09 x10^6/uL (3.50-5.40) Hemoglobin 7.9 g/dL (12.0-15.5) Hematocrit 28.5 % (36.0-47.0) Mean Corpuscular Volume 56 fL (79-100) Mean Corpuscular Hemoglobin 16 pg (25-35) Mean Corpuscular Hemoglobin Concent 28 g/dL (31-37) Red Cell Distribution Width 21.3 % (11.5-14.5) Platelet Count 252 x10^3/uL (140-400) Neutrophils (%) (Auto) 65 % (31-73) Lymphocytes (%) (Auto) 24 % (24-48) Monocytes (%) (Auto) 8 % (0-9) Eosinophils (%) (Auto) 3 % (0-3) Basophils (%) (Auto) 1 % (0-3) Neutrophils # (Auto) 5.9 x10^3/uL (1.8-7.7) Lymphocytes # (Auto) 2.2 x10^3/uL (1.0-4.8) Monocytes # (Auto) 0.7 x10^3/uL (0.0-1.1) Eosinophils # (Auto) 0.2 x10^3/uL (0.0-0.7) Basophils # (Auto) 0.1 x10^3/uL (0.0-0.2) Sodium Level 139 mmol/L (136-145) Potassium Level 4.1 mmol/L (3.5-5.1) Chloride Level 104 mmol/L (98-107) Carbon Dioxide Level 27 mmol/L (21-32) Anion Gap 8 (6-14) Blood Urea Nitrogen 12 mg/dL (7-20) Creatinine 0.9 mg/dL (0.6-1.0) Estimated GFR (Cockcroft-Gault) 61.4 Glucose Level 143 mg/dL (70-99) Calcium Level 9.0 mg/dL (8.5-10.1) Brief Hospital Course Ms. Little is a 74 old female] who presented with acute bronchitis versus pneumonia, acute on chronic COPD, acute respiratory failure. She was treated appropriately with broad-spectrum antibiotics to cover for common respiratory pathogens. Consults were placed to pulmonology. Patient was stable for discharge after inpatient treatment to continue her course of antibiotics at home. However prior to my ability to appropriately discharge the patient she left AMA. Discharge Information Condition at Discharge: Stable Follow Up: Weeks Disposition/Orders: Other (Patient left AMA) Scheduled Atorvastatin Calcium (Atorvastatin Calcium) 80 Mg Tablet, 80 MG PO QHS for FOR HIGH CHOLESTEROL, (Reported) Entered as Reported by: CHELO GUNN on 10/27/19 1239 Last Taken: Unknown Dose on Unknown Date & Time Last Action: Converted on 10/27/19 1257 by CHELO GUNN Duloxetine Hcl (Duloxetine Hcl) 60 Mg Capsule.dr, 60 MG PO BID for unknown, (Reported) Entered as Reported by: CHELO GUNN on 10/27/19 1239 Last Taken: Unknown Dose on Unknown Date & Time Last Action: New Order on 10/27/191238 by CHELO GUNN Furosemide (Furosemide) 20 Mg Tablet, 1 TAB PO DAILY for unknown, #90 Ref 1 (Re ported) Entered as Reported by: CHELO GUNN on 10/27/191238 Last Taken: Unknown Dose on Unknown Date & Time Last Action: Continued on 10/27/19 1257 by CHELO GUNN Insulin Glargine,Hum.rec.anlog (Lantus) 100 Unit/1 Ml Vial, 58 UNIT SQ HS for diabetes, (Reported) Entered as Reported by: ILIANA VANG on 07/11/13 1150 Last Action: Edited on 10/27/191238 by CHELO GUNN Insulin Lispro (Humalog) 100 Unit/1 Ml Vial, 25 UNIT SQ TIDAC for DM, (Reported) Entered as Reported by: CHELO GUNN on 10/27/191238 Last Taken: Unknown Dose on Unknown Date & Time Last Action: New Order on 10/27/191238 by CHELO GUNN Levofloxacin (Levofloxacin) 750 Mg Tablet, 1 TAB PO DAILY for Pneumonia, #5 Prescribed by: ORIANA KAHN MD on 10/29/19 1601 Levothyroxine Sodium (Levothyroxine Sodium) 50 Mcg Tablet, 1 TAB PO DAILY for hypothyroid, #30 Ref 5 (Reported) Entered as Reported by: CHELO GUNN on 10/27/191238 Last Taken: Unknown Dose on Unknown Date & Time Last Action: New Order on 10/27/191238 by CHELO GUNN Metoprolol Succinate (Metoprolol Succinate ( Xl )) 25 Mg Tab.er.24h, 1 TAB PO DAILY for HTN, #30 Ref 5 (Reported) Entered as Reported by: CHELO GUNN on 10/27/191238 Last Taken: Unknown Dose on Unknown Date & Time Last Action: Continued on 10/27/19 1257 by CHELO GUNN Morphine Sulfate (Morphine Sulfate Er) 15 Mg Tablet.er, 1 TAB PO BID for pain, #60 (Reported) Entered as Reported by: CHELO GUNN on 10/27/191238 Last Taken: Unknown Dose on Unknown Date & Time Last Action: Continued on 10/27/19 1257 by CHELO GUNN Pantoprazole Sodium (Pantoprazole Sodium ) 40 Mg Tablet.dr, 40 MG PO DAILYAC for GERD for 30 Days, #30 Prescribed by: LUZ FERRER MD on 07/14/19 1308 Last Taken: Unknown Dose on 10/24/19 Last Action: Reviewed on 10/27/19 123 by CHELO GUNN Potassium Chloride (Potassium Chloride ) 20 Meq Tablet.er, 20 MEQ PO DAILY for SUPPLEMENT, (Reported) Entered as Reported by: CHELO GUNN on 10/27/19 123 Last Taken: Unknown Dose on Unknown Date & Time Last Action: Continued on 10/27/19 1257 by CHELO GUNN Prednisone (Prednisone ) 10 Mg Tablet, 1 TAB PO BID for unknown for 5 Days, #10 Ref 0 (Reported) Entered as Reported by: CHELO GUNN on 10/27/191238 Last Taken: Unknown Dose on Unknown Date & Time Last Action: Continued on 10/27/19 1257 by CHELO GUNN Pregabalin (Lyrica) 50 Mg Capsule, 150 MG PO TID for muscles, (Reported) Entered as Reported by: SY COLLIER on 08/03/19 0654 Last Taken: Unknown Dose on 10/25/19 Last Action: Edited on 10/27/191238 by CHELO GUNN Sucralfate (Sucralfate) 1 Gm Tablet, 1 GM PO ac and hs for crohns, (Reported) Entered as Reported by: SY COLLIER on 08/03/19 0654 Last Taken: Unknown Dose on 10/25/19 Last Action: Reviewed on 10/27/19 123 by CHELO GUNN Sulfasalazine (Sulfazine Ec) 500 Mg Tablet.dr, 2 TAB PO TID for crohns, (Reported) Entered as Reported by: SY COLLIER on 08/03/19 0654 Last Taken: Unknown Dose on 10/25/19 Last Action: Edited on 10/27/191238 by CHELO GUNN Tapentadol Hcl (Nucynta) 100 Mg Tablet, 1 TAB PO BID for pain MDD 2 Tablet(s) for 30 Days, #60 Ref 0 (Reported) Entered as Reported by: CHELO GUNN on 10/27/19 123 Last Taken: Unknown Dose on Unknown Date & Time Last Action: Converted on 10/27/19 1257 by CHELO GUNN Trazodone Hcl (Trazodone Hcl) 150 Mg Tablet, 1 TAB PO QHS for unknown for 30 Days, #30 Ref 0 (Reported) Entered as Reported by: CHELO GUNN on 10/27/19 123 Last Taken: Unknown Dose on Unknown Date & Time Last Action: Converted on 10/27/19 1257 by CHELO GUNN [Magic Mouth Wash] , 1 TSP PO Q2HR for pain, (Reported) Entered as Reported by: CHELO GUNN on 10/27/19 123 Last Taken: Unknown Dose on Unknown Date & Time Last Action: Converted on 10/27/19 1257 by CHELO GUNN Scheduled PRN Lidocaine Hcl (Lidocaine Hcl) 40 Mg/1 Ml Solution, 40 MG MM PRN Q1HR PRN for PAIN, (Reported) Entered as Reported by: CHELO GUNN on 10/27/191238 Last Taken: Unknown Dose on Unknown Date & Time Last Action: New Order on 10/27/191238 by CHELO GUNN Discontinued Medications Alendronate Sodium (Fosamax) 70 Mg Tablet, 70 MG PO, (Reported) Entered as Reported by: ILIANA AVNG on 07/11/13 115 Last Action: Discontinued on 10/27/191238 by CHELO GUNN Duloxetine Hcl (Cymbalta) 30 Mg Capsule.dr, 30 MG PO, (Reported) Entered as Reported by: ILIANA VANG on 07/11/13 115 Last Taken: Unknown Dose on 10/25/19 Last Action: Discontinued on 10/27/191238 by CHELO GUNN Escitalopram Oxalate (Escitalopram Oxalate) 10 Mg Tablet, 10 MG PO DAILY, #30 Ref 0 (Reported) Entered as Reported by: ILIANA VANG on 07/11/13 115 Last Action: Discontinued on 10/27/191238 by CHELO GUNN Famotidine (Famotidine) 20 Mg Tablet, 20 MG PO BID for gerd, (Reported) Entered as Reported by: SY COLLIER on 08/03/19 0654 Last Action: Discontinued on 10/27/191238 by CHELO GUNN Gabapentin (Gabapentin ) 300 Mg Capsule, 300 MG PO, (Reported) Entered as Reported by: ILIANA VANG on 07/11/13 115 Last Action: Discontinued on 10/27/19 123 by CHELO GUNN Glimepiride (Glimepiride) 2 Mg Tablet, 2 MG PO, (Reported) Entered as Reported by: ILIANA VANG on 07/11/131149 Last Action: Discontinued on 10/27/19 1239 by CHELO GUNN Insulin Aspart (Novolog) 100 Unit/1 Ml Vial, 25 UNIT SQ TIDWMEALS for diabetes, (Reported) Entered as Reported by: ILIANA VANG on 07/11/13 115 Last Action: Discontinued on 10/27/199 by CHELO GUNN Levothyroxine Sodium (Levothyroxine Sodium) 125 Mcg Tablet, 125 MCG PO DAILYAC, #30 (Reported) Entered as Reported by: ILIANA VANG on 07/11/131149 Last Action: Discontinued on 10/27/191238 by CHELO GUNN Lisinopril (Lisinopril) 5 Mg Tablet, 5 MG PO DAILY, #30 Ref 0 (Reported) Entered as Reported by: ILIANA VANG on 07/11/131149 Last Action: Discontinued on 10/27/199 by CHELO GUNN Montelukast Sodium (Singulair Tablet ) 10 Mg Tablet, 10 MG PO HS for FOR ASTHMA, Ref 0 (Reported) Entered as Reported by: SY COLLIER on 08/03/19 0654 Last Action: Discontinued on 10/27/191238 by CHELO GUNN Quetiapine Fumarate (Seroquel) 100 Mg Tablet, 100 MG PO, (Reported) Entered as Reported by: ILIANA VANG on 07/11/131149 Last Action: Discontinued on 10/27/191238 by CHELO GUNN Justicifation of Admission Dx: Justifications for Admission: Justification of Admission Dx: Yes Respiratory Failure: Severe Resp Distress ORIANA KAHN MD Oct 29, 2019 17:46
== END 2019-10-29 16:00 | disposition left against medical advice (07) | DRG 871 ==
LOC: ER 18:30 → 1 WEST ICU 20:53 → 6 SOUTH 10-26 18:19 → 5 NORTH 10-28 14:08
PROVIDERS: ADMIT Internal Medicine; ATTEND Internal Medicine
PROC: 5A09357 Assistance with Respiratory Ventilation, Less than 24 Consecutive Hours, Continuous Positive Airway Pressure (ICD-10-PCS; principal; 2019-10-25)
DX: A41.9 Sepsis, unspecified organism (principal); J96.21 Acute and chronic respiratory failure with hypoxia; I50.21 Acute systolic (congestive) heart failure; J18.9 Pneumonia, unspecified organism; K50.90 Crohn's disease, unspecified, without complications; J44.0 Chronic obstructive pulmonary disease with (acute) lower respiratory infection; G89.29 Other chronic pain; Z20.828 Contact with and (suspected) exposure to other viral communicable diseases; L21.0 Seborrhea capitis; F17.200 Nicotine dependence, unspecified, uncomplicated; D64.9 Anemia, unspecified; K52.9 Noninfective gastroenteritis and colitis, unspecified; F32.9 Major depressive disorder, single episode, unspecified; K21.9 Gastro-esophageal reflux disease without esophagitis; M79.7 Fibromyalgia; E11.9 Type 2 diabetes mellitus without complications; M19.90 Unspecified osteoarthritis, unspecified site; Z90.710 Acquired absence of both cervix and uterus; Z90.49 Acquired absence of other specified parts of digestive tract; Z83.3 Family history of diabetes mellitus; Z82.49 Family history of ischemic heart disease and other diseases of the circulatory system; Z71.6 Tobacco abuse counseling
CPT/HCPCS: 36415; 36600; 71045; 71046; 80048; 80053; 81001; 82805; 82947; 82962; 83605; 83880; 84484; 85007; 85025; 86850; 86900; 86901; 87040; 93005; 94640; 94660; 94760; 96365; 96375; 99285; J1650; J1815; J1940; J2543; J3370; J7030; J7040; J7512; G0378; Q0163; U0003-CS

== ENCOUNTER → 2020-03-11 | Outpatient (CLI) | payer MEDICARE, OTHER ==
[~2020-03-11] MED LIST changes: +ATOR80TA72 PO; +DULO60CA45 PO; +FURO20TA3 PO; +INSU100V6 SQ; +LEVO50TA5 PO; +LEVO750T5 PO; +LIDO40SO MM; -LISI-338 PO; +LISI-517 PO; +METO-239 PO; +MORP-15 PO; +Magic Mouth Wash PO; +POTA20TA4 PO; +TAPE100T7 PO; +TRAZ150T49 PO
[2020-03-11 15:50] LABS: BASO # 0.4 x10^3/uL (0.0-0.2); BASO % 4 % (0-3); EOS # 0.6 x10^3/uL (0.0-0.7); EOS % 6 % (0-3); HEMOGLOBIN 8.7 g/dL (12.0-15.5); LYMPH # 4.1 x10^3/uL (1.0-4.8); LYMPH % 37 % (24-48); MEAN CORPUSCULAR HEMOGLOBIN 16 pg (25-35); MEAN CORPUSCULAR HGB CONC 28 g/dL (31-37); MEAN CORPUSCULAR VOLUME 56 fL (79-100); MONO # 1.3 x10^3/uL (0.0-1.1); MONO % 12 % (0-9); NEUT # 4.5 x10^3/uL (1.8-7.7); NEUT % 41 % (31-73); PLATELET COUNT 325 x10^3/uL (140-400); RED BLOOD COUNT 5.52 x10^6/uL (3.50-5.40); RED CELL DISTRIBUTION WIDTH 20.6 % (11.5-14.5)
[2020-03-11 16:04] LABS: % BASOS 2 % (0-3); % EOS 5 % (0-5); % MONOS 8 % (0-10)
[2020-03-11 16:05] LABS: % LYMPHS 40 % (24-48); % SEGS 45 % (35-66); ANISOCYTOSIS MOD; HYPOCHROMIA MARKED; MICROCYTOSIS MARKED; PLT ESTIMATE ADEQUATE (ADEQUATE); POIKILOCYTOSIS SLIGHT; POLYCHROMASIA SLIGHT
[2020-03-11 16:06] LABS: OVALOCYTES FEW; TARGET CELLS OCC
== END ==
LOC: ONCLAB 14:34
PROVIDERS: ATTEND Internal Medicine Hematology & Oncology
DX: D50.9 Iron deficiency anemia, unspecified (principal)
CPT/HCPCS: 36415; 82525; 82607; 82668; 82728; 82746; 83540; 83550; 85007; 85025; 85045

== ENCOUNTER → 2020-05-09 | Outpatient (CLI) | payer MEDICARE, OTHER ==
[2020-05-09 13:27] LABS: BASO # 0.1 x10^3/uL (0.0-0.2); BASO % 1 % (0-3); EOS # 0.9 x10^3/uL (0.0-0.7); EOS % 8 % (0-3); HEMATOCRIT 41.1 % (36.0-47.0); HEMOGLOBIN 12.8 g/dL (12.0-15.5); LYMPH # 3.9 x10^3/uL (1.0-4.8); LYMPH % 36 % (24-48); MEAN CORPUSCULAR HEMOGLOBIN 23 pg (25-35); MEAN CORPUSCULAR HGB CONC 31 g/dL (31-37); MEAN CORPUSCULAR VOLUME 72 fL (79-100); MONO # 0.9 x10^3/uL (0.0-1.1); MONO % 9 % (0-9); NEUT # 5.1 x10^3/uL (1.8-7.7); NEUT % 47 % (31-73); PLATELET COUNT 244 x10^3/uL (140-400); RED BLOOD COUNT 5.69 x10^6/uL (3.50-5.40); RED CELL DISTRIBUTION WIDTH 38.3 % (11.5-14.5)
== END ==
LOC: ONCLAB 12:55
PROVIDERS: ATTEND Internal Medicine Hematology & Oncology
DX: D50.9 Iron deficiency anemia, unspecified (principal)
CPT/HCPCS: 36415; 82607; 82728; 82746; 83540; 83550; 85025

== ENCOUNTER → 2020-07-03 | Outpatient (CLI) | payer MEDICARE, OTHER ==
--- NOTE | 2020-07-03 11:07 | RAD ---
EXAM: Chest CT low dose lung cancer screening without intravenous contrast. HISTORY: Nicotine dependence. TECHNIQUE: Computed tomographic images of the chest were obtained without contrast. Multiplanar refor matting was performed. *One or more of the following individualized dose reduction techniques were utilized for this examina tion: 1. Automated exposure control. 2. Adjustment of the mA and/or kV according to patient size. 3. Use of iterative reconstruction technique. COMPARISON: 01/06/2018. FINDINGS: There is pulmonary emphysema. There is no pneumothorax or pleural effusion. There is bilate ral posterior dependent and basilar atelectasis. There is lingular and right middle lobe and bilatera l lower lobe pleural parenchymal scarring. There is no infiltrate. There is a 2 mm nodule within the right upper lobe (series 2, image 89). There is a 3 mm nodule within the anterior right upper lobe (s eries 2, image 170). There is a 3 mm nodule within the right lower lobe (series 2, image 168). The heart is normal in size. There is calcified atherosclerotic plaque involving the aorta, aortic ar ch great vessels and coronary arteries. There is calcification of the aortic valve. There are calcifi ed mediastinal and hilar granulomas. There are few scattered calcified granulomas within both lungs. There is a stable prominent right paratracheal lymph node measuring 10 mm. There has been interval in crease in a 2.2 cm nodule posterior to the right thyroid lobe. There is no acute finding involving th e upper abdomen. There are degenerative changes throughout the spine. There are dorsal column stimula tor leads terminating at the mid thoracic level. IMPRESSION: 1. Tiny bilateral pulmonary nodules, the largest of which measures 3 mm and is stable compared to the study performed 01/06/2018. The greater than two-year course of stability favors benignity. Lung RAD S category 2: [address] is recommended. 2. Pulmonary emphysema with bilateral mid and lower lung pleural parenchymal scarring. 3. 2.2 cm nodule posterior to the right thyroid lobe, increased compared to the prior exam. This can be better assessed with a thyroid sonogram. Electronically signed by: Ashli Nichols MD (07/03/2020 11:04 AM) [id number]
--- NOTE | 2020-07-03 11:11 | RAD ---
EXAM: Right knee, 3 views. HISTORY: Pain. COMPARISON: None. FINDINGS: 3 views the right knee are obtained. There is medial compartment joint space narrowing, sub chondral sclerosis and spurring. There is minimal patellar spurring There is a small joint effusion. There is prepatellar soft tissue prominence. IMPRESSION: 1. Mild medial compartment and minimal patellofemoral compartment osteoarthritis of the right knee. 2. Small right knee effusion. 3. Prepatellar soft tissue prominence. This may be due to physiologic skin thickening. If there has b een a history of recent trauma, this may be due to a soft tissue contusion. The differential also inc ludes prepatellar bursitis. Electronically signed by: Ashli Nichols MD (07/03/2020 11:09 AM) [id number]
== END ==
LOC: CT 10:33
PROVIDERS: ATTEND Family Medicine
DX: Z12.2 Encounter for screening for malignant neoplasm of respiratory organs (principal); J98.4 Other disorders of lung; J43.9 Emphysema, unspecified; R91.8 Other nonspecific abnormal finding of lung field; I25.10 Atherosclerotic heart disease of native coronary artery without angina pectoris; I70.0 Atherosclerosis of aorta; M17.11 Unilateral primary osteoarthritis, right knee; M25.461 Effusion, right knee; F17.210 Nicotine dependence, cigarettes, uncomplicated
CPT/HCPCS: 71271; 73562

== ENCOUNTER → 2020-07-23 | Outpatient (CLI) | payer MEDICARE, OTHER ==
[2020-07-23 13:55] LABS: BASO # 0.3 x10^3/uL (0.0-0.2); BASO % 3 % (0-3); EOS # 0.7 x10^3/uL (0.0-0.7); EOS % 7 % (0-3); HEMATOCRIT 31.7 % (36.0-47.0); HEMOGLOBIN 10.2 g/dL (12.0-15.5); LYMPH # 2.8 x10^3/uL (1.0-4.8); LYMPH % 28 % (24-48); MEAN CORPUSCULAR HEMOGLOBIN 22 pg (25-35); MEAN CORPUSCULAR HGB CONC 32 g/dL (31-37); MEAN CORPUSCULAR VOLUME 68 fL (79-100); MONO # 1.1 x10^3/uL (0.0-1.1); MONO % 11 % (0-9); NEUT # 5.1 x10^3/uL (1.8-7.7); NEUT % 51 % (31-73); PLATELET COUNT 268 x10^3/uL (140-400); RED BLOOD COUNT 4.69 x10^6/uL (3.50-5.40); RED CELL DISTRIBUTION WIDTH 17.7 % (11.5-14.5)
[2020-07-23 15:08] LABS: ANISOCYTOSIS SLIGHT; HYPOCHROMIA MOD; MICROCYTOSIS MOD; PLT ESTIMATE ADEQUATE (ADEQUATE)
== END ==
LOC: ONCLAB 13:25
PROVIDERS: ATTEND Internal Medicine Hematology & Oncology
DX: D50.9 Iron deficiency anemia, unspecified (principal)
CPT/HCPCS: 36415; 83540; 83550; 85025